=== PATIENT | male | born 1980 | race Caucasian/White ===

== ENCOUNTER 2016-09-12 10:04 | Inpatient (IN) | payer OTHER ==
--- NOTE | 2016-09-12 16:55 | HP ---
COWS - Scale Resting Pulse: 0= [place] 80 or Below Sweatin=Flushed/Facial Moisture Restless Observation: 3= Extraneous Movement Pupil Size: 2= Moderately Dilated Bone or Joint Aches: 2= Severe Diffuse Aches Runny Nose/ Eye Tearin= Runny Nose/Eyes GI Upset > 30mins: 3= Vomiting/Diarrhea Tremor Observation: 2= Slight Tremor Visible Yawning Observation: 2= >3x During Session Anxiety or Irritability: 2=Irritable/Anxious Goose Flesh Skin: 0=Smooth Skin COWS Score: 20 Admission ROS BHS - HPI Chief Complaint: i i need help to stop using drugs Allergies/Adverse Reactions: Allergies Allergy/AdvReac Type Severity Reaction Status Date / Time Penicillins Allergy Severe Rash Verified 09/12/16 16:44 History of Present Illness: this 35 years old patient with heroin,cocaine and marijuana dependence seeking detox,last treatment in 2014 i [place] had previous admission in the past needed help to stop anxiety and depression longest period of sobriety 3 years Exam Limitations: No Limitations - Ebola screening Have you traveled outside of the country in the last 21 days: No Have you been sick,other than usual withdrawal symptoms: No - Review of Systems Constitutional: Chills, Loss of Appetite, Malaise, Night Sweats, Changes in sleep, Weakness, Unintentional Wgt. Loss EENT: reports: Tearing, Nose Congestion Respiratory: reports: No Symptoms reported Cardiac: reports: No Symptoms Reported GI: reports: Diarrhea, Nausea, Vomiting, Abdominal cramping : reports: No Symptoms Reported Musculoskeletal: reports: Back Pain, Joint Pain, Muscle Pain, Joint Stiffness Integumentary: reports: Dryness Neuro: reports: Headache, Tremors Endocrine: reports: No Symptoms Reported Hematology: reports: No Symptoms Reported Psychiatric: reports: Anxious, Depressed Other Systems: Reviewed and Negative Patient History - Patient Medical History Hx Anemia: No Hx Asthma: No Hx Chronic Obstructive Pulmonary Disease (COPD): No Hx Cancer: No Hx Cardiac Disorders: No Hx Congestive Heart Failure: No Hx Hypertension: No Hx Hypercholesterolemia: No Hx Pacemaker: No HX Cerebrovascular Accident: No Hx Seizures: No Hx Dementia: No Hx Diabetes: No Hx Gastrointestinal Disorders: No Hx Liver Disease: No Hx Genitourinary Disorders: No Hx Sexually Transmitted Disorders: No Hx Renal Disease (ESRD): No Hx Thyroid Disease: No Hx Human Immunodeficiency Virus (HIV): No (09/10 last negative) Hx Hepatitis C: No Hx Depression: Yes (anxiety) Hx Suicide Attempt: No Hx Bipolar Disorder: No Hx Schizophrenia: No Other Medical History: no suicidal,no homicidal - Patient Surgical History Past Surgical History: No - PPD History Previous Implant?: Yes Documented Results: Negative w/o proof PPD to be Administered?: Yes - Smoking Cessation Smoking history: Current every day smoker Have you smoked in the past 12 months: Yes Aproximately how many cigarettes per day: 20 Cigars Per Day: 0 Hx Chewing Tobacco Use: No Initiated information on smoking cessation: Yes 'Breaking Loose' booklet given: 09/12/16 - Substance & Tx. History Hx Alcohol Use: No Hx Substance Use: Yes Substance Use Type: Cocaine, Heroin, Marijuana Hx Substance Use Treatment: Yes (2014 in [place]) - Substances Abused Heroin Route: Injection Frequency: Daily Amount used: 10 bags Age of first use: 21 Date of Last Use: 09/12/16 Marijuana/Hashish Route: Smoking Frequency: Daily Amount used: 1 bag Age of first use: 16 Date of Last Use: 09/11/16 Cocaine Route: Injection Frequency: Daily Amount used: 3 bags Age of first use: 21 Date of Last Use: 09/11/16 Family Disease History - Family Disease History Family History: Denies Admission Physical Exam [facility] - Vital Signs Vital Signs: Vital Signs - 24 hr 09/12/16 16:41 Temperature 97.0 F L Pulse Rate 72 Respiratory 20 Rate Blood Pressure 120/71 - Physical General Appearance: Yes: Moderate Distress, Tremorous, Irritable, Sweating, Anxious HEENTM: Yes: Normal ENT Inspection, Normocephalic, HANY Respiratory: Yes: Lungs Clear, Normal Breath Sounds, No Respiratory Distress Neck: Yes: Within Normal Limits, Supple, Trachea in good position Breast: Yes: Within Normal Limits Cardiology: Yes: Within Normal Limits, Regular Rhythm, Regular Rate, S1, S2 Abdominal: Yes: Normal Bowel Sounds, Non Tender, Flat, Soft, Organomegaly Genitourinary: Yes: Within Normal Limits Back: Yes: Muscle Spasm Musculoskeletal: Yes: full range of Motion, Back pain, Joint Stiffness, Muscle Pain Extremities: Yes: Normal Range of Motion, Tremors Neurological: Yes: strategic manager II-XII NML intact, Alert, Motor Strength 5/5 Integumentary: Yes: Dry, Track Jason Lymphatic: Yes: Within Normal Limits - Diagnostic (1) Opioid dependence with withdrawal Status: Acute (2) Cocaine dependence Status: Acute (3) Cannabis dependence Status: Acute (4) Anxiety and depression Status: Acute (5) Insomnia Status: Acute Cleared for Admission [facility] - Detox or Rehab [facility] Level of Care: Medically Managed Detox Regimen/Protocol: Methadone [facility] Breath Alcohol Content Breath Alcohol Content: 0 Urine Drug Screen - Results Drug Screen Negative: No Urine Drug Screen Results: THC-Marijuana, DELFINO-Cocaine, OPI-Opiates
[2016-09-12] MEDS ORDERED: LOPERAMIDE HCL 2 MG CAPSULE PO PRN (17:06)
[2016-09-12] MEDS ORDERED: diphenhydrAMINE HCL 50 MG CAPSULE PO PRN (17:06)
[2016-09-12] MEDS ORDERED: IBUPROFEN 400 MG TABLET (FP) PO PRN (17:06)
[2016-09-12] MEDS ORDERED: NICOTINE POLACRILEX 2 MG GUM BC PRN (17:06)
[2016-09-12] MEDS ORDERED: MAGNESIUM CITRATE 300 ML BOTTLE PO PRN (17:06)
[2016-09-12] MEDS ORDERED: P-EPHED 60MG/TRIPROLIDI 2.5MG TABLET PO PRN (17:06)
[2016-09-12] MEDS ORDERED: MAG HYDROX/AL HYDROX/SIMETH 30 ML UNIT-DOSE CUP PO PRN (17:06)
[2016-09-12] MEDS ORDERED: ACETAMINOPHEN 325 MG TABLET (FP) PO PRN (17:06)
[2016-09-12] MEDS ORDERED: MAGNESIUM HYDROX 2400MG/30ML ORAL SUSPENSION 30 ML CUP PO PRN (17:06)
[2016-09-12] MEDS ORDERED: hydrOXYzine PAMOATE 25 MG CAPSULE (FP) PO PRN (17:06)
[2016-09-12] MEDS ORDERED: guaiFENesin/D-METHORPHAN HB 10 ML UNIT-DOSE CUPS PO PRN (17:06)
[2016-09-12] MEDS ORDERED: MENTHOL/PHENOL 1 EACH UD MM PRN (17:06)
[2016-09-12] MEDS ORDERED: CYCLOBENZAPRINE HCL 10 MG TABLET (FP) PO PRN (17:11)
[2016-09-12] MEDS ORDERED: NICOTINE 21 MG/24 HOURS TOPICAL PATCH TD SCH (17:15)
[2016-09-12] MEDS ORDERED: METHADONE HCL 10 MG TABLET (FOR DETOX USE ONLY) PO ONE ×2 (17:45→23:00)
[2016-09-12] MEDS: diazePAM 5 MG TABLET PO PRN ×2 (17:54→22:48)
[2016-09-12] MEDS ORDERED: cloNIDine HCL 0.1 MG TABLET PO SCH (22:00)
[2016-09-12] MEDS ORDERED: THIAMINE HCL 100 MG TABLET (FP) PO SCH (22:00)
[2016-09-13] MEDS: diazePAM 5 MG TABLET PO PRN (05:38)
[2016-09-13 06:31] VITALS: BP 100/74; PULSE 76; TEMP 97.2
[2016-09-13] MEDS ORDERED: hydrOXYzine PAMOATE 50 MG CAPSULE (FP) PO PRN (07:59)
--- NOTE | 2016-09-13 08:45 | CONSULT ---
[facility] Psychiatric Consult - Data Date of interview: 09/13/16 Admission source: [facility] Identifying data: This is 35 years old male with psychiatric hospitalization history intoxicated with : Opioids, Cannabis and Copcaine Substance Abuse History: - Smoking Cessation. Smoking history: Current every day smoker. Have you smoked in the past 12 months: Yes. Aproximately how many cigarettes per day: 20. Cigars Per Day: 0. Hx Chewing Tobacco Use: No. Initiated information on smoking cessation: Yes. 'Breaking Loose' booklet given : 09/12/16. - Substance & Tx. History. Hx Alcohol Use: No. Hx Substance Use: Yes. Substance Use Type: Cocaine, Heroin, Marijuana. Hx Substance Use Treatment: Yes (2015 in [place]) Medical History: Denies significant medical issues Psychiatric History: Patient reprots history of depressiokn and anxiety, reports rtecent psychiatric admission at [place] on 2016 for safety, reports taking Vistaril 50mg po prn q4 for anxiety Physical/Sexual Abuse/Trauma History: Denies Additional Comment: Vistaril 50mg po prn q4 for anxiety Mental Status Exam - Mental Status Exam Alert and Oriented to: Person Cognitive Function: Fair Patient Appearance: Unkempt Mood: Sad Affect: Flat Patient Behavior: Sedated Speech Pattern: Delayed Voice Loudness: Mildly Soft/Quiet Thought Process: Circumstantial Thought Disorder: Being Controlled Hallucinations: Denies Suicidal Ideation: Denies Homicidal Ideation: Denies Insight/Judgement: Fair Sleep: Difficulty falling asleep Appetite: Weight loss Muscle strength/Tone: Normal Gait/Station: Shuffling Additional Comments: Vistaril 50mg po prn q4 for anxiety Psychiatric Findings - Problem List ([place] 1, 2,3) (1) Cannabis dependence Current Visit: Yes Status: Acute (2) Cocaine dependence Current Visit: Yes Status: Acute (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 Observation. Detox Care Protocol
[2016-09-13 10:00] LABS: MCH 29.9 pg (25.7-33.7); MCHC 33.2 g/dl (32.0-35.9); MEAN PLT VOLUME 8.6 fl (7.5-11.1); PLATELET COUNT 231 K/MM3 (134-434); RDW 14.3 % (11.9-15.9); WHITE BLOOD COUNT 5.2 K/mm3 (4.0-10.0)
[2016-09-13] MEDS ORDERED: PRENATAL VITAMINS W/ FOLIC ACID TABLET (FP) PO SCH (10:00)
[2016-09-13] MEDS ORDERED: METHADONE HCL 10 MG TABLET (FOR DETOX USE ONLY) PO ONE (10:00)
[2016-09-13 10:26] LABS: ALK PHOS 87 U/L (45-117); ANION GAP 5 (8-16); BILIRUBIN,TOTAL 0.3 mg/dL (0.2-1.0); CALCIUM 8.9 mg/dL (8.5-10.1); CO2 31 mmol/L (21-32); CREATININE 0.8 mg/dL (0.7-1.3); GLUCOSE,RANDOM 123 mg/dL (74-106); SGOT/AST 120 U/L (15-37); SGPT/ALT 174 U/L (12-78); TOT PROT 6.3 g/dl (6.4-8.2)
--- NOTE | 2016-09-13 11:21 | DS ---
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 PT STATES HIS FAMILY IN [place] DOES NOT KNOW HE IS HERE AND HE WANTS TO LEAVE. ALERT O X 3. NAD. Pertinent Past History: HX DEPRESSION - Physical Exam Results Vital Signs: Vital Signs Temperature 97.2 F L 09/13/16 06:29 Pulse Rate 76 09/13/16 06:29 Respiratory Rate 18 09/13/16 06:29 Blood Pressure 100/74 09/13/16 06:29 O2 Sat by Pulse Oximetry (%) Pertinent Admission Physical Exam Findings: WITHDRAWAL SX Laboratory Last Values WBC 5.2 K/mm3 (4.0-10.0) 09/13/16 06:30 RBC 4.69 M/mm3 (4.00-5.60) 09/13/16 06:30 Hgb 14.0 GM/dL (11.7-16.9) 09/13/16 06:30 Hct 42.2 % (35.4-49) 09/13/16 06:30 MCV 90.0 fl (80-96) 09/13/16 06:30 MCH 29.9 pg (25.7-33.7) 09/13/16 06:30 MCHC 33.2 g/dl (32.0-35.9) 09/13/16 06:30 RDW 14.3 % (11.9-15.9) 09/13/16 06:30 Plt Count 231 K/MM3 (134-434) 09/13/16 06:30 MPV 8.6 fl (7.5-11.1) 09/13/16 06:30 Sodium 137 mmol/L (136-145) 09/13/16 06:30 Potassium 4.4 mmol/L (3.5-5.1) 09/13/16 06:30 Chloride 101 mmol/L (98-107) 09/13/16 06:30 Carbon Dioxide 31 mmol/L (21-32) 09/13/16 06:30 Anion Gap 5 (8-16) L 09/13/16 06:30 BUN 11 mg/dL (7-18) 09/13/16 06:30 Creatinine 0.8 mg/dL (0.7-1.3) 09/13/16 06:30 Creat Clearance w eGFR > 60 (>60) 09/13/16 06:30 Random Glucose 123 mg/dL (74-106) H 09/13/16 06:30 Calcium 8.9 mg/dL (8.5-10.1) 09/13/16 06:30 Total Bilirubin 0.3 mg/dL (0.2-1.0) 09/13/16 06:30 AST 120 U/L (15-37) H 09/13/16 06:30 ALT 174 U/L (12-78) H 09/13/16 06:30 Alkaline Phosphatase 87 U/L (45-117) 09/13/16 06:30 Total Protein 6.3 g/dl (6.4-8.2) L 09/13/16 06:30 Albumin 3.0 g/dl (3.4-5.0) L 09/13/16 06:30 RPR Titer Nonreactive (NONREACTIVE) 09/13/16 06:30 UA RESULT PENDING - Treatment Hospital Course: Discharged Condition Good - Medication Discharge Medications: Ambulatory Orders NK [No Known Home Medication] 09/12/16 - Diagnosis (1) Anxiety and depression Status: Acute (2) Cannabis dependence Status: Acute (3) Cocaine dependence Status: Acute (4) Opioid dependence with withdrawal Status: Acute - AMA Did Patient Leave Against Medical Advice: Yes (AMA)
[2016-09-13 14:19] LABS: URINE APPEARANCE CLEAR; URINE BILIRUBIN NEGATIVE (NEGATIVE); URINE BLOOD NEGATIVE (NEGATIVE); URINE COLOR LTYELLOW; URINE GLUCOSE (UA) NEGATIVE (NEGATIVE); URINE KETONE NEGATIVE (NEGATIVE); URINE LEUK ESTERASE NEGATIVE (NEGATIVE); URINE NITRITE NEGATIVE (NEGATIVE); URINE PROTEIN NEGATIVE (NEGATIVE); URINE UROBILINOGEN NEGATIVE mg/dL (0.2-1.0)
--- NOTE | 2016-09-13 16:37 | EKG ---
Test Reason : Blood Pressure : / mmHG Vent. Rate : 058 BPM Atrial Rate : 058 BPM P-R Int : 128 ms QRS Dur : 112 ms QT Int : 432 ms P-R-T Axes : 060 075 058 degrees QTc Int : 424 ms SINUS BRADYCARDIA OTHERWISE NORMAL ECG NO PREVIOUS ECGS AVAILABLE Confirmed by SAMMY BASURTO MD ([id number]) on 09/13/2016 4:37:15 PM Referred By: Confirmed By:SAMMY BASURTO MD
[2016-09-14] MEDS ORDERED: METHADONE HCL 5 MG TABLET (FOR DETOX USE ONLY) PO ONE (10:00)
[2016-09-15] MEDS ORDERED: METHADONE HCL 5 MG TABLET (FOR DETOX USE ONLY) PO ONE (10:00)
[2016-09-16] MEDS ORDERED: METHADONE HCL 10 MG TABLET (FOR DETOX USE ONLY) PO ONE (10:00)
[2016-09-17] MEDS ORDERED: METHADONE HCL 5 MG TABLET (FOR DETOX USE ONLY) PO ONE (06:00)
== END 2016-09-13 09:09 | disposition left against medical advice (07) | DRG 770 ==
LOC: YASAS 10:04 → Y3N 16:58
PROVIDERS: ADMIT Internal Medicine Addiction Medicine; ATTEND Internal Medicine Addiction Medicine
PROC: HZ2ZZZZ Detoxification Services for Substance Abuse Treatment (ICD-10-PCS; principal; 2016-09-13)
DX: F11.23 Opioid dependence with withdrawal (principal); F14.20 Cocaine dependence, uncomplicated; F12.20 Cannabis dependence, uncomplicated; F19.24 Other psychoactive substance dependence with psychoactive substance-induced mood disorder; F41.8 Other specified anxiety disorders; G47.09 Other insomnia
CPT/HCPCS: 36415; 80053; 81003; 85027; 86593; 93005; 93010

== ENCOUNTER 2017-07-05 19:03 | Inpatient (IN) | payer OTHER ==
[2017-07-05 21:02] VITALS: BMI 19.3
--- NOTE | 2017-07-06 02:04 | HP ---
COWS - Scale Resting Pulse: 0= [place] 80 or Below Sweatin=Flushed/Facial Moisture Restless Observation: 1= Difficult to Sit Still Pupil Size: 1= Pupils >than Normal Bone or Joint Aches: 2= Severe Diffuse Aches Runny Nose/ Eye Tearin= Runny Nose/Eyes GI Upset > 30mins: 3= Vomiting/Diarrhea (vomiting x 3,no diarrhea) Tremor Observation: 2= Slight Tremor Visible Yawning Observation: 0= None Anxiety or Irritability: 2=Irritable/Anxious Goose Flesh Skin: 0=Smooth Skin COWS Score: 15 CIWA Score - CIWA Score Nausea/Vomitin Muscle Tremors: 3 Anxiety: 3 Agitation: 1-Slight > Activity Paroxysmal Sweats: 1-Minimal Palms Moist Orientation: 0-Oriented Tacttile Disturbances: 0-None Auditory Disturbances: 0-None Visual Disturbances: 0-None Headache: 3-Moderate CIWA-Ar Total Score: 14 Admission ROS S - HPI Chief Complaint: Heroin, benzidiazepine and alcohol withdrawal symptoms Allergies/Adverse Reactions: Allergies Allergy/AdvReac Type Severity Reaction Status Date / Time Penicillins Allergy Severe Rash Verified 07/06/17 01:50 History of Present Illness: 36 years old male with a long history of heroin, benzidiazepine and alcohol withdrawal symptoms is seeking admission to detox. Patient has been to previous detox and reports 2 years of sobriety. He has medical history of depression and anxiety. Denies suicide attempt and suicidal ideation at this time. Patient is on methadone 50mg tablet at [facility]. LDM was 07/05/2017. Dose is yet to be confirmed by the nurse. Exam Limitations: No Limitations - Ebola screening Have you traveled outside of the country in the last 21 days: No ([place]) Have you had contact with anyone from an Ebola affected area: No Have you been sick,other than usual withdrawal symptoms: No Do you have a fever: No - Review of Systems Constitutional: Chills, Loss of Appetite, Malaise, Night Sweats, Changes in sleep EENT: reports: No Symptoms Reported Respiratory: reports: No Symptoms reported Cardiac: reports: No Symptoms Reported GI: reports: No Symptoms Reported : reports: No Symptoms Reported Musculoskeletal: reports: Back Pain, Muscle Pain Integumentary: reports: Flushing Neuro: reports: Headache, Tremors Endocrine: reports: No Symptoms Reported Hematology: reports: No Symptoms Reported Psychiatric: reports: Orientated x3, Agitated, Anxious, Depressed Other Systems: Reviewed and Negative Patient History - Patient Medical History Hx Anemia: No Hx Asthma: No Hx Chronic Obstructive Pulmonary Disease (COPD): No Hx Cancer: No Hx Cardiac Disorders: No Hx Congestive Heart Failure: No Hx Hypertension: No Hx Hypercholesterolemia: No Hx Pacemaker: No HX Cerebrovascular Accident: No Hx Seizures: No Hx Dementia: No Hx Diabetes: No Hx Gastrointestinal Disorders: No Hx Liver Disease: No Hx Genitourinary Disorders: No Hx Sexually Transmitted Disorders: No Hx Renal Disease (ESRD): No Hx Thyroid Disease: No Hx Human Immunodeficiency Virus (HIV): No (09/10 last negative) Hx Hepatitis C: No Hx Depression: Yes (Not on medication) Hx Suicide Attempt: No (Denies suicide attempt and suicidakl ideation at this time) Hx Bipolar Disorder: No Hx Schizophrenia: No Other Medical History: Anxiety - Not on medication - Patient Surgical History Past Surgical History: No Hx Neurologic Surgery: No Hx Cataract Extraction: No Hx Cardiac Surgery: No Hx Lung Surgery: No Hx Abdominal Surgery: No Hx Appendectomy: No Hx Cholecystectomy: No Hx Genitourinary Surgery: No Hx Section: No Hx Orthopedic Surgery: No Anesthesia Reaction: No - PPD History Previous Implant?: Yes Documented Results: Negative w/o proof Implanted On Prior [facility] Admission?: No Date: 09/14/16 PPD to be Administered?: Yes - Reproductive History Patient is a Female of Child Bearing Age (11 -55 yrs old): No (male) - Smoking Cessation Smoking history: Current every day smoker Have you smoked in the past 12 months: Yes Aproximately how many cigarettes per day: 20 Cigars Per Day: 0 Hx Chewing Tobacco Use: No Initiated information on smoking cessation: Yes 'Breaking Loose' booklet given: 07/06/17 - Substance & Tx. History Hx Alcohol Use: Yes Hx Substance Use: Yes Substance Use Type: Alcohol, Cocaine, Heroin, Marijuana Hx Substance Use Treatment: Yes ([facility]) - Substances Abused Cocaine Route: Injection Frequency: Daily Amount used: $50- 5BAGS Age of first use: 21 Date of Last Use: 07/06/17 Heroin Route: Inhalation Frequency: Daily Amount used: 5BAGS Age of first use: 21 Date of Last Use: 07/06/17 Alcohol Route: Oral Frequency: Daily Amount used: VODKA- 3PTS, BEERS- 3BTLS Age of first use: 12 Date of Last Use: 07/06/17 XANAX Route: Oral Frequency: Daily Amount used: 6MG Age of first use: 13 Date of Last Use: 07/06/17 K2 Route: Smoking Frequency: Daily Amount used: $20 Age of first use: 33 Date of Last Use: 07/06/17 Family Disease History - Family Disease History Family History: Denies Admission Physical Exam [facility] - Vital Signs Vital Signs: Vital Signs - 24 hr 07/05/17 21:00 Temperature 98.6 F Pulse Rate 75 Respiratory 17 Rate Blood Pressure 111/65 - Physical General Appearance: Yes: Moderate Distress, Tremorous, Irritable, Sweating, Anxious HEENTM: Yes: Normal ENT Inspection, Normal Voice, HANY Respiratory: Yes: Lungs Clear, Normal Breath Sounds, No Respiratory Distress Neck: Yes: Supple Breast: Yes: Breast Exam Deferred Cardiology: Yes: Regular Rhythm, Regular Rate Abdominal: Yes: Normal Bowel Sounds, Soft Genitourinary: Yes: Within Normal Limits Back: Yes: Normal Inspection Musculoskeletal: Yes: Back pain, Muscle Pain, Muscle weakness Extremities: Yes: Tremors Neurological: Yes: Alert, Normal Mood/Affect Integumentary: Yes: Dry Lymphatic: Yes: Within Normal Limits - Diagnostic (1) Sedative, hypnotic or anxiolytic dependence with withdrawal, uncomplicated Current Visit: Yes Status: Chronic (2) Anxiety and depression Current Visit: Yes Status: Chronic (3) Cannabis dependence Current Visit: Yes Status: Chronic (4) Cocaine dependence Current Visit: Yes Status: Chronic (5) Opioid dependence with withdrawal Current Visit: Yes Status: Chronic Cleared for Admission [facility] - Detox or Rehab [facility] Level of Care: Medically Managed Detox Regimen/Protocol: Librium [facility] Breath Alcohol Content Breath Alcohol Content: 0 Urine Drug Screen - Results Drug Screen Negative: No Urine Drug Screen Results: DELFINO-Cocaine, OPI-Opiates, BZO-Benzodiazepines, MTD- Methadone
[2017-07-06] MEDS ORDERED: P-EPHED 60MG/TRIPROLIDI 2.5MG TABLET PO PRN (02:20)
[2017-07-06] MEDS ORDERED: IBUPROFEN 400 MG TABLET (FP) PO PRN (02:20)
[2017-07-06] MEDS ORDERED: guaiFENesin/D-METHORPHAN HB 10 ML UNIT-DOSE CUPS PO PRN (02:20)
[2017-07-06] MEDS ORDERED: MAG HYDROX/AL HYDROX/SIMETH 30 ML UNIT-DOSE CUP PO PRN (02:20)
[2017-07-06] MEDS ORDERED: MENTHOL/PHENOL 1 EACH UD MM PRN (02:20)
[2017-07-06] MEDS ORDERED: MAGNESIUM CITRATE 300 ML BOTTLE PO PRN (02:20)
[2017-07-06] MEDS ORDERED: LOPERAMIDE HCL 2 MG CAPSULE PO PRN (02:20)
[2017-07-06] MEDS ORDERED: diazePAM 5 MG TABLET PO ONE (02:20)
[2017-07-06] MEDS: diazePAM 5 MG TABLET PO SCH ×3 (05:14→22:19)
--- NOTE | 2017-07-06 09:22 | EKG ---
Test Reason : Blood Pressure : / mmHG Vent. Rate : 063 BPM Atrial Rate : 063 BPM P-R Int : 136 ms QRS Dur : 116 ms QT Int : 432 ms P-R-T Axes : 053 068 051 degrees QTc Int : 442 ms NORMAL SINUS RHYTHM NORMAL ECG WHEN COMPARED WITH ECG OF 12-SEP-2016 16:57, NO SIGNIFICANT CHANGE WAS FOUND Confirmed by DARYL FONSECA MD ([id number]) on 07/06/2017 9:21:43 AM Referred By: Confirmed By:ADRYL FONSECA MD
[2017-07-06 10:08] LABS: HEMATOCRIT 42.1 % (35.4-49); HEMOGLOBIN 14.2 GM/dL (11.7-16.9); MCH 30.1 pg (25.7-33.7); MCHC 33.7 g/dl (32.0-35.9); MEAN CELL VOLUME 89.3 fl (80-96); MEAN PLT VOLUME 8.6 fl (7.5-11.1); PLATELET COUNT 392 K/MM3 (134-434); RBC 4.71 M/mm3 (4.00-5.60); RDW 15.4 % (11.9-15.9); WHITE BLOOD COUNT 8.8 K/mm3 (4.0-10.0)
[2017-07-06] MEDS: NICOTINE 14 MG/24 HOURS TOPICAL PATCH TD SCH (10:26)
[2017-07-06] MEDS: diazePAM 5 MG TABLET PO PRN ×2 (10:26→17:33)
[2017-07-06] MEDS: PRENATAL VITAMINS W/ FOLIC ACID TABLET (FP) PO SCH (10:26)
[2017-07-06] MEDS: ACETAMINOPHEN 325 MG TABLET (FP) PO PRN (10:27)
[2017-07-06] MEDS: NICOTINE POLACRILEX 2 MG GUM BC PRN ×2 (10:27→19:05)
[2017-07-06 10:37] LABS: CHLORIDE 98 mmol/L (98-107); POTASSIUM 3.5 mmol/L (3.5-5.1); SODIUM 139 mmol/L (136-145)
[2017-07-06 10:50] LABS: ALBUMIN 3.9 g/dl (3.4-5.0); ALK PHOS 113 U/L (45-117); ANION GAP 9 (8-16); BILIRUBIN,TOTAL 0.9 mg/dL (0.2-1.0); BLOOD UREA NITROGEN 12 mg/dL (7-18); CALCIUM 8.7 mg/dL (8.5-10.1); CO2 32 mmol/L (21-32); CREATININE 0.8 mg/dL (0.7-1.3); GLUCOSE,RANDOM 98 mg/dL (74-106); SGOT/AST 22 U/L (15-37); SGPT/ALT 18 U/L (12-78); TOT PROT 8.3 g/dl (6.4-8.2)
[2017-07-06] MEDS: METHADONE HCL 10 MG TABLET PO SCH (13:12)
--- NOTE | 2017-07-06 15:37 | PN ---
S CIWA - CIWA Score Nausea/Vomitin-No Nausea/No Vomiting Muscle Tremors: 3 Anxiety: 5 Agitation: 5 Paroxysmal Sweats: No Perspiration Orientation: 0-Oriented Tacttile Disturbances: 3-Moderate Itch/Numb/Burn Auditory Disturbances: 0-None Visual Disturbances: 2-Mild Sensitivity Headache: 0-None Present CIWA-Ar Total Score: 18 BHS COWS - Scale Resting Pulse: 0= [place] 80 or Below Sweatin= Chills/Flushing Restless Observation: 3= Extraneous Movement Pupil Size: 0= Normal to Room Light Bone or Joint Aches: 2= Severe Diffuse Aches Runny Nose/ Eye Tearin= None GI Upset > 30mins: 0= None Tremor Observation of Outstretched Hands: 0= None Yawning Observation: 2= >3x During Session Anxiety or Irritability: 2=Irritable/Anxious Goose Flesh Skin: 3=Piloerection COWS Score: 13 BHS Progress Note (SOAP) Subjective: Fatigue, Anxious, Body Aches, Tremors. Objective: PATIENT A & O X 3, OBSERVED AMBULATING ON UNIT. NO ACUTE DISTRESS. 07/06/17 15:36 Vital Signs Temperature 97.1 F L 07/06/17 14:56 Pulse Rate 72 07/06/17 14:56 Respiratory Rate 18 07/06/17 14:56 Blood Pressure 109/65 07/06/17 14:56 O2 Sat by Pulse Oximetry (%) Laboratory Tests 07/06/17 07/06/17 07/06/17 08:00 08:00 08:00 WBC 8.8 D RBC 4.71 Hgb 14.2 Hct 42.1 MCV 89.3 MCH 30.1 MCHC 33.7 RDW 15.4 Plt Count 392 D MPV 8.6 Sodium 139 Potassium 3.5 D Chloride 98 Carbon Dioxide 32 Anion Gap 9 BUN 12 Creatinine 0.8 Creat Clearance w eGFR > 60 Random Glucose 98 D Calcium 8.7 Total Bilirubin 0.9 D AST 22 D ALT 18 D Alkaline Phosphatase 113 D Total Protein 8.3 H D Albumin 3.9 D RPR Titer Nonreactive LABS NOTED. UA RESULTS PENDING. Assessment: 07/06/17 15:37 WITHDRAWAL SYMPTOMS. Plan: CONTINUE DETOX. INCREASE DAILY PO FLUID INTAKE.
[2017-07-06] MEDS: MAGNESIUM HYDROX 2400MG/30ML ORAL SUSPENSION 30 ML CUP PO PRN (17:36)
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
[2017-07-06] MEDS ORDERED: MELATONIN 5 MG TABLETS PO PRN (22:00)
[2017-07-06] MEDS: THIAMINE HCL 100 MG TABLET (FP) PO SCH (22:18)
[2017-07-06] MEDS: MIRTAZAPINE 15 MG TABLET (FP) PO SCH (22:19)
[2017-07-06] MEDS ORDERED: ONDANSETRON *ODT* 4 MG TABLET SL ONE (23:48)
--- NOTE | 2017-07-07 01:49 | PN ---
BHS Progress Note (SOAP) Subjective: Patient complained of nausea. Vomited x 1. Objective: 07/07/17 01:48 Vital Signs Temperature 97.1 F L 07/06/17 21:45 Pulse Rate 73 07/06/17 21:45 Respiratory Rate 16 07/07/17 00:30 Blood Pressure 104/62 07/06/17 21:45 O2 Sat by Pulse Oximetry (%) Laboratory Last Values WBC 8.8 K/mm3 (4.0-10.0) D 07/06/17 08:00 RBC 4.71 M/mm3 (4.00-5.60) 07/06/17 08:00 Hgb 14.2 GM/dL (11.7-16.9) 07/06/17 08:00 Hct 42.1 % (35.4-49) 07/06/17 08:00 MCV 89.3 fl (80-96) 07/06/17 08:00 MCH 30.1 pg (25.7-33.7) 07/06/17 08:00 MCHC 33.7 g/dl (32.0-35.9) 07/06/17 08:00 RDW 15.4 % (11.9-15.9) 07/06/17 08:00 Plt Count 392 K/MM3 (134-434) D 07/06/17 08:00 MPV 8.6 fl (7.5-11.1) 07/06/17 08:00 Sodium 139 mmol/L (136-145) 07/06/17 08:00 Potassium 3.5 mmol/L (3.5-5.1) D 07/06/17 08:00 Chloride 98 mmol/L (98-107) 07/06/17 08:00 Carbon Dioxide 32 mmol/L (21-32) 07/06/17 08:00 Anion Gap 9 (8-16) 07/06/17 08:00 BUN 12 mg/dL (7-18) 07/06/17 08:00 Creatinine 0.8 mg/dL (0.7-1.3) 07/06/17 08:00 Creat Clearance w eGFR > 60 (>60) 07/06/17 08:00 Random Glucose 98 mg/dL (74-106) D 07/06/17 08:00 Calcium 8.7 mg/dL (8.5-10.1) 07/06/17 08:00 Total Bilirubin 0.9 mg/dL (0.2-1.0) D 07/06/17 08:00 AST 22 U/L (15-37) D 07/06/17 08:00 ALT 18 U/L (12-78) D 07/06/17 08:00 Alkaline Phosphatase 113 U/L (45-117) D 07/06/17 08:00 Total Protein 8.3 g/dl (6.4-8.2) H D 07/06/17 08:00 Albumin 3.9 g/dl (3.4-5.0) D 07/06/17 08:00 RPR Titer Nonreactive (NONREACTIVE) 07/06/17 08:00 Assessment: 07/07/17 01:48 Withdrawal symptoms Plan: Ondansetron 4mg sublingual
[2017-07-07] MEDS: METHADONE HCL 10 MG TABLET PO SCH (05:58)
[2017-07-07] MEDS: diazePAM 5 MG TABLET PO SCH ×3 (05:58→22:26)
--- NOTE | 2017-07-07 07:43 | PN ---
[facility] Progress Note Note: Patient fell and hit his head. Fall protocol #1 initiated. Patient is to transferred to ER for further evaluation. Endorsed to Dr. Staples.
[2017-07-07 10:12] LABS: URINE APPEARANCE CLEAR; URINE BILIRUBIN NEGATIVE (<2.0 mg/dL); URINE COLOR LTYELLOW; URINE GLUCOSE (UA) NEGATIVE (NEGATIVE); URINE KETONE NEGATIVE (NEGATIVE); URINE LEUK ESTERASE NEGATIVE (NEGATIVE); URINE NITRITE NEGATIVE (NEGATIVE); URINE PROTEIN NEGATIVE (NEGATIVE); URINE UROBILINOGEN NEGATIVE mg/dL (0.2-1.0)
[2017-07-07] MEDS: NICOTINE 14 MG/24 HOURS TOPICAL PATCH TD SCH (10:16)
[2017-07-07] MEDS: PRENATAL VITAMINS W/ FOLIC ACID TABLET (FP) PO SCH (10:16)
[2017-07-07] MEDS: diazePAM 5 MG TABLET PO PRN ×2 (10:16→18:49)
[2017-07-07] MEDS: NICOTINE POLACRILEX 2 MG GUM BC PRN ×2 (10:17→15:14)
--- NOTE | 2017-07-07 12:52 | PN ---
S CIWA - CIWA Score Nausea/Vomitin (N/V & CONSTIPATION) Muscle Tremors: 3 Anxiety: 4-Mod. Anxious/Guarded Agitation: 3 Paroxysmal Sweats: 1-Minimal Palms Moist Orientation: 0-Oriented Tacttile Disturbances: 0-None Auditory Disturbances: 0-None Visual Disturbances: 0-None Headache: 0-None Present CIWA-Ar Total Score: 14 BHS COWS - Scale Resting Pulse: 0= [place] 80 or Below Sweatin= Chills/Flushing Restless Observation: 3= Extraneous Movement Pupil Size: 2= Moderately Dilated Bone or Joint Aches: 4=Acute Joint/Muscle Pain Runny Nose/ Eye Tearin= Nasal Congestion GI Upset > 30mins: 1= Stomach Cramp Tremor Observation of Outstretched Hands: 1= Tremor [place], Not Seen Yawning Observation: 0= None Anxiety or Irritability: 2=Irritable/Anxious Goose Flesh Skin: 0=Smooth Skin COWS Score: 15 S Progress Note (SOAP) Subjective: ANXIETY, SWEATS,NAUSEA/VOMITING LAST NIGHT DUE TO DYSPEPSIA ,CONSTIPATION-MOM NOT EFFECTIVE. Objective: 07/07/17 12:54 Vital Signs 07/07/17 07/07/17 07/07/17 06:13 07:45 09:30 Temperature 96.1 F L 96.9 F L 98.7 F Pulse Rate 71 73 71 Respiratory 18 18 18 Rate Blood Pressure 99/60 106/66 113/71 07/07/17 10:29 Temperature 96.8 F L Pulse Rate 69 Respiratory 18 Rate Blood Pressure 102/69 Laboratory Tests 07/06/17 07/06/17 07/06/17 08:00 08:00 08:00 WBC 8.8 D RBC 4.71 Hgb 14.2 Hct 42.1 MCV 89.3 MCH 30.1 MCHC 33.7 RDW 15.4 Plt Count 392 D MPV 8.6 Sodium 139 Potassium 3.5 D Chloride 98 Carbon Dioxide 32 Anion Gap 9 BUN 12 Creatinine 0.8 Creat Clearance w eGFR > 60 Random Glucose 98 D Calcium 8.7 Total Bilirubin 0.9 D AST 22 D ALT 18 D Alkaline Phosphatase 113 D Total Protein 8.3 H D Albumin 3.9 D Urine Color Urine Appearance Urine pH Ur Specific [place] Urine Protein Urine Glucose (UA) Urine Ketones Urine Blood Urine Nitrite Urine Bilirubin Urine Urobilinogen Ur Leukocyte Esterase RPR Titer Nonreactive 07/07/17 09:14 WBC RBC Hgb Hct MCV MCH MCHC RDW Plt Count MPV Sodium Potassium Chloride Carbon Dioxide Anion Gap BUN Creatinine Creat Clearance w eGFR Random Glucose Calcium Total Bilirubin AST ALT Alkaline Phosphatase Total Protein Albumin Urine Color Ltyellow Urine Appearance Clear Urine pH 6.0 Ur Specific [place] 1.010 Urine Protein Negative Urine Glucose (UA) Negative Urine Ketones Negative Urine Blood Negative Urine Nitrite Negative Urine Bilirubin Negative Urine Urobilinogen Negative Ur Leukocyte Esterase Negative RPR Titer Assessment: 07/07/17 12:54 WITHDRAWAL SX Plan: CONTINUE DETOX [place] PRN CITRATE OF MG IF MOM NOT EFFECTIVE.
[2017-07-07] MEDS: ACETAMINOPHEN 325 MG TABLET (FP) PO PRN (15:14)
[2017-07-07] MEDS: MAGNESIUM HYDROX 2400MG/30ML ORAL SUSPENSION 30 ML CUP PO PRN (18:49)
[2017-07-07] MEDS: MIRTAZAPINE 15 MG TABLET (FP) PO SCH (22:27)
[2017-07-07] MEDS: THIAMINE HCL 100 MG TABLET (FP) PO SCH (22:27)
[2017-07-08] MEDS: ACETAMINOPHEN 325 MG TABLET (FP) PO PRN (01:37)
[2017-07-08] MEDS: diazePAM 5 MG TABLET PO PRN ×4 (01:39→17:37)
[2017-07-08] MEDS ORDERED: METHADONE HCL 10 MG TABLET ONE (04:50)
[2017-07-08] MEDS ORDERED: METHADONE HCL 40 MG DISPERSABLE TABLET ONE (04:50)
[2017-07-08] MEDS: METHADONE 40 MG, METHADONE 10 MG PO SCH (05:16)
[2017-07-08] MEDS: NICOTINE POLACRILEX 2 MG GUM BC PRN ×3 (09:33→19:59)
[2017-07-08] MEDS: PRENATAL VITAMINS W/ FOLIC ACID TABLET (FP) PO SCH (10:03)
[2017-07-08] MEDS: diazePAM 5 MG TABLET PO SCH ×2 (10:03→22:12)
[2017-07-08] MEDS: NICOTINE 14 MG/24 HOURS TOPICAL PATCH TD SCH (10:03)
--- NOTE | 2017-07-08 12:11 | PN ---
BHS Progress Note (SOAP) Subjective: ANXIETY,SWEATS,INTERMITTENT SLEEP. Objective: 07/08/17 12:11 Vital Signs 07/08/17 07/08/17 07/08/17 06:06 06:30 07:30 Temperature 97.5 F L 97.7 F Pulse Rate 75 68 Respiratory 18 18 18 Rate Blood Pressure 113/78 103/65 07/08/17 09:02 Temperature 97.0 F L Pulse Rate 77 Respiratory 18 Rate Blood Pressure 108/70 Laboratory Tests 07/06/17 07/06/17 07/06/17 08:00 08:00 08:00 WBC 8.8 D RBC 4.71 Hgb 14.2 Hct 42.1 MCV 89.3 MCH 30.1 MCHC 33.7 RDW 15.4 Plt Count 392 D MPV 8.6 Sodium 139 Potassium 3.5 D Chloride 98 Carbon Dioxide 32 Anion Gap 9 BUN 12 Creatinine 0.8 Creat Clearance w eGFR > 60 Random Glucose 98 D Calcium 8.7 Total Bilirubin 0.9 D AST 22 D ALT 18 D Alkaline Phosphatase 113 D Total Protein 8.3 H D Albumin 3.9 D Urine Color Urine Appearance Urine pH Ur Specific [place] Urine Protein Urine Glucose (UA) Urine Ketones Urine Blood Urine Nitrite Urine Bilirubin Urine Urobilinogen Ur Leukocyte Esterase RPR Titer Nonreactive 07/07/17 09:14 WBC RBC Hgb Hct MCV MCH MCHC RDW Plt Count MPV Sodium Potassium Chloride Carbon Dioxide Anion Gap BUN Creatinine Creat Clearance w eGFR Random Glucose Calcium Total Bilirubin AST ALT Alkaline Phosphatase Total Protein Albumin Urine Color Ltyellow Urine Appearance Clear Urine pH 6.0 Ur Specific [place] 1.010 Urine Protein Negative Urine Glucose (UA) Negative Urine Ketones Negative Urine Blood Negative Urine Nitrite Negative Urine Bilirubin Negative Urine Urobilinogen Negative Ur Leukocyte Esterase Negative RPR Titer Assessment: 07/08/17 12:11 WITHDRAWAL SX Plan: CONTINUE DETOX
[2017-07-08] MEDS: MIRTAZAPINE 15 MG TABLET (FP) PO SCH (22:12)
[2017-07-08] MEDS: THIAMINE HCL 100 MG TABLET (FP) PO SCH (22:12)
[2017-07-08] MEDS: MAGNESIUM HYDROX 2400MG/30ML ORAL SUSPENSION 30 ML CUP PO PRN (22:14)
[2017-07-09] MEDS ORDERED: METHADONE HCL 10 MG TABLET ONE (03:46)
[2017-07-09] MEDS ORDERED: METHADONE HCL 40 MG DISPERSABLE TABLET ONE (03:46)
[2017-07-09] MEDS: METHADONE 40 MG, METHADONE 10 MG PO SCH (05:54)
[2017-07-09] MEDS: PRENATAL VITAMINS W/ FOLIC ACID TABLET (FP) PO SCH (10:00)
[2017-07-09] MEDS: diazePAM 5 MG TABLET PO SCH (10:00)
[2017-07-09] MEDS: NICOTINE 14 MG/24 HOURS TOPICAL PATCH TD SCH (10:01)
[2017-07-09] MEDS: NICOTINE POLACRILEX 2 MG GUM BC PRN (10:01)
--- NOTE | 2017-07-09 10:22 | PN ---
BHS Progress Note (SOAP) Subjective: ANXIETY,SWEATS,IRRITABILITY, RESTLESSNESS,INTERMITTENT SLEEP. Objective: 07/09/17 10:21 Vital Signs 07/09/17 07/09/17 06:11 09:03 Temperature 96.8 F L 97.5 F L Pulse Rate 98 H 91 H Respiratory 16 16 Rate Blood Pressure 115/77 121/75 Laboratory Tests 07/06/17 07/06/17 07/06/17 08:00 08:00 08:00 WBC 8.8 D RBC 4.71 Hgb 14.2 Hct 42.1 MCV 89.3 MCH 30.1 MCHC 33.7 RDW 15.4 Plt Count 392 D MPV 8.6 Sodium 139 Potassium 3.5 D Chloride 98 Carbon Dioxide 32 Anion Gap 9 BUN 12 Creatinine 0.8 Creat Clearance w eGFR > 60 Random Glucose 98 D Calcium 8.7 Total Bilirubin 0.9 D AST 22 D ALT 18 D Alkaline Phosphatase 113 D Total Protein 8.3 H D Albumin 3.9 D Urine Color Urine Appearance Urine pH Ur Specific [place] Urine Protein Urine Glucose (UA) Urine Ketones Urine Blood Urine Nitrite Urine Bilirubin Urine Urobilinogen Ur Leukocyte Esterase RPR Titer Nonreactive 07/07/17 09:14 WBC RBC Hgb Hct MCV MCH MCHC RDW Plt Count MPV Sodium Potassium Chloride Carbon Dioxide Anion Gap BUN Creatinine Creat Clearance w eGFR Random Glucose Calcium Total Bilirubin AST ALT Alkaline Phosphatase Total Protein Albumin Urine Color Ltyellow Urine Appearance Clear Urine pH 6.0 Ur Specific [place] 1.010 Urine Protein Negative Urine Glucose (UA) Negative Urine Ketones Negative Urine Blood Negative Urine Nitrite Negative Urine Bilirubin Negative Urine Urobilinogen Negative Ur Leukocyte Esterase Negative RPR Titer Assessment: 07/09/17 10:21 WITHDRAWAL SX Plan: CONTINUE DETOX
[2017-07-09] MEDS: ACETAMINOPHEN 325 MG TABLET (FP) PO PRN (11:02)
--- NOTE | 2017-07-09 11:20 | PN ---
[facility] Progress Note Note: NURSE NEHA CALLED FOR PROVIDER TO TO SEE THIS PATIENT STATING " PT WAS SITTING ON THE FLOOR". SAW PT SITTING ON HIS BED BUT APPEARED VERY TIRED SLEEPY. 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 PT EXPRESSED DESIRE TO USE THE BATHROOM DURING MY PRESENCE AT PT'S BEDSIDE AND STATES HE MIGHT BE "FEELING THAT WAY BECAUSE I DRANK SOMETHING TO MAKE ME GO ". PT HAD CITROMA AT 7:55 THIS MORNING. PT HAS NO PMHx OF ANY DISEASE. NOT ON MEDS AT HOME. BP 104/60 P 77 RR18 T99.2 PULSE OX 97% LUNGS:CLEAR TO AUSCULTATE, NO WHEEZE OR MURMUR PLAN:NURSING STAFF TO MONITOR PT SAFETY PER PROTOCOL INCREASE PO FLUIDS AMMONIA LEVEL R/O HYPERAMMONEMIA
[2017-07-09 13:44] VITALS: BP 128/71; PULSE 89; TEMP 96.9
--- NOTE | 2017-07-09 13:59 | DS ---
[facility] Detox Discharge Summary Admission Date: 07/05/17 Discharge Date: 07/09/17 - History Present History: Cannabis Dependence, Cocaine Dependence, Opioid Dependence, Sedative Dependence Additional Comments: PT DECLINED TO CONTINUE WITH DETOX STATES "IT'S TOO GOOD OUTSIDE. FOR NOW I'M LEAVING. I'LL FOLLOW UP WITH REHAB LATER". PT IS ALERT O X 3. IN NAD. AMBULATING WITH STEADY GAIT. PT ENCOURAGED BY COUNSELOR PIPPA AND THIS BREAK OUT WORKER TO STAY IN ORDER TO GO TO REHAB IN THE MORNING BUT HE DECLINED. Pertinent Past History: PLEASE SEE DX BELOW - Physical Exam Results Vital Signs: Vital Signs Temperature 96.9 F L 07/09/17 13:43 Pulse Rate 89 07/09/17 13:43 Respiratory Rate 16 07/09/17 13:43 Blood Pressure 128/71 07/09/17 13:43 O2 Sat by Pulse Oximetry (%) Pertinent Admission Physical Exam Findings: WITHDRAWAL SX Laboratory Tests 07/06/17 07/06/17 07/06/17 08:00 08:00 08:00 WBC 8.8 D RBC 4.71 Hgb 14.2 Hct 42.1 MCV 89.3 MCH 30.1 MCHC 33.7 RDW 15.4 Plt Count 392 D MPV 8.6 Sodium 139 Potassium 3.5 D Chloride 98 Carbon Dioxide 32 Anion Gap 9 BUN 12 Creatinine 0.8 Creat Clearance w eGFR > 60 Random Glucose 98 D Calcium 8.7 Total Bilirubin 0.9 D AST 22 D ALT 18 D Alkaline Phosphatase 113 D Ammonia Total Protein 8.3 H D Albumin 3.9 D Urine Color Urine Appearance Urine pH Ur Specific [place] Urine Protein Urine Glucose (UA) Urine Ketones Urine Blood Urine Nitrite Urine Bilirubin Urine Urobilinogen Ur Leukocyte Esterase RPR Titer Nonreactive 07/07/17 07/09/17 09:14 11:40 WBC RBC Hgb Hct MCV MCH MCHC RDW Plt Count MPV Sodium Potassium Chloride Carbon Dioxide Anion Gap BUN Creatinine Creat Clearance w eGFR Random Glucose Calcium Total Bilirubin AST ALT Alkaline Phosphatase [place] 45.07 H Total Protein Albumin Urine Color Ltyellow Urine Appearance Clear Urine pH 6.0 Ur Specific [place] 1.010 Urine Protein Negative Urine Glucose (UA) Negative Urine Ketones Negative Urine Blood Negative Urine Nitrite Negative Urine Bilirubin Negative Urine Urobilinogen Negative Ur Leukocyte Esterase Negative RPR Titer PT DECLINED AMMONIA RESULT/TREATMENT. - Treatment Hospital Course: Detox Protocol Followed, Detoxed Safely, Responded well, Discharged Condition Good - Medication Discharge Medications: Ambulatory Orders NK [No Known Home Medication] 09/12/16 - Diagnosis (1) Nicotine dependence Status: Acute Qualifiers: Nicotine product type: cigarettes Substance use status: in withdrawal Qualified Code(s): F17.213 - Nicotine dependence, cigarettes, with withdrawal (2) Sedative, hypnotic or anxiolytic dependence with withdrawal, uncomplicated Status: Acute (3) Opioid dependence with withdrawal Status: Acute (4) Cocaine dependence Status: Acute Qualifiers: Substance use status: uncomplicated Qualified Code(s): F14.20 - Cocaine dependence, uncomplicated - AMA Did Patient Leave Against Medical Advice: Yes (AMA)
[2017-07-10] MEDS ORDERED: diazePAM 5 MG TABLET PO SCH (10:00)
== END 2017-07-09 02:05 | disposition left against medical advice (07) | DRG 770 ==
LOC: YASAS 19:03 → Y3N 23:30
PROVIDERS: ADMIT Internal Medicine; ATTEND Internal Medicine
PROC: HZ2ZZZZ Detoxification Services for Substance Abuse Treatment (ICD-10-PCS; principal; 2017-07-05)
DX: F11.23 Opioid dependence with withdrawal (principal); F13.230 Sedative, hypnotic or anxiolytic dependence with withdrawal, uncomplicated; F14.20 Cocaine dependence, uncomplicated; F17.213 Nicotine dependence, cigarettes, with withdrawal; F19.24 Other psychoactive substance dependence with psychoactive substance-induced mood disorder; F41.8 Other specified anxiety disorders; K59.01 Slow transit constipation; G47.00 Insomnia, unspecified; S09.90XS Unspecified injury of head, sequela; W19.XXXA Unspecified fall, initial encounter; Y93.9 Activity, unspecified; Y92.239 Unspecified place in hospital as the place of occurrence of the external cause; Z88.0 Allergy status to penicillin
CPT/HCPCS: 36415; 80053; 81003; 82140; 85027; 86593; 93005; 93010; Q0162

== ENCOUNTER 2017-11-19 13:36 | Inpatient (IN) | payer OTHER ==
[2017-11-19 15:24] VITALS: BMI 20.7
--- NOTE | 2017-11-19 15:49 | HP ---
CIWA Score - CIWA Score Nausea/Vomitin-No Nausea/No Vomiting Muscle Tremors: None Anxiety: 2 Agitation: 1-Slight > Activity Paroxysmal Sweats: No Perspiration Orientation: 0-Oriented Tacttile Disturbances: 0-None Auditory Disturbances: 2-Mild Harshness/Frighten Visual Disturbances: 2-Mild Sensitivity Headache: 2-Mild CIWA-Ar Total Score: 9 Admission ROS BHS - HPI Allergies/Adverse Reactions: Allergies Allergy/AdvReac Type Severity Reaction Status Date / Time Penicillins Allergy Severe Rash Verified 07/06/17 01:50 History of Present Illness: patient here requesting detox from etoh use , referred by [facility] x 4 mo , daily dose claims 100 mg , last taken today . Denies seizures, blackouts , tremors , sometimes drinking in the mornings . etoh use : 2-3 cans /day k2 : daily cocaine : 3-4 bags /day IVDU in [place] , needles from exchange , denies sharing , denies abscess heroin use : OD x 3 , most recently April 2017 , EMS / Narcan used , current use 2-3 bags daily benzo : xanax, klonopin 1-2 /day , reports anxiety if not using. tobacco use: 1 ppd , requesting nrt w/ gum pmhx : denies pshx : denies psych : depression , anxiety , bipolar d/o allergies : pcn meds : none , has not seen psych > 2 mo Exam Limitations: No Limitations - Ebola screening Have you traveled outside of the country in the last 21 days: No Have you had contact with anyone from an Ebola affected area: No Have you been sick,other than usual withdrawal symptoms: No Do you have a fever: No - Review of Systems Constitutional: See HPI EENT: reports: No Symptoms Reported Respiratory: reports: No Symptoms reported Cardiac: reports: No Symptoms Reported GI: reports: No Symptoms Reported : reports: No Symptoms Reported Musculoskeletal: reports: No Symptoms Reported Integumentary: reports: No Symptoms Reported Neuro: reports: No Symptoms reported Endocrine: reports: No Symptoms Reported Psychiatric: reports: Judgement Intact, Orientated x3, Anxious, Depressed Other Systems: Reviewed and Negative Patient History - Patient Medical History Hx Anemia: No Hx Asthma: No Hx Chronic Obstructive Pulmonary Disease (COPD): No Hx Cancer: No Hx Cardiac Disorders: No Hx Congestive Heart Failure: No Hx Hypertension: No Hx Hypercholesterolemia: No Hx Pacemaker: No HX Cerebrovascular Accident: No Hx Seizures: No Hx Dementia: No Hx Diabetes: No Hx Gastrointestinal Disorders: No Hx Liver Disease: No Hx Genitourinary Disorders: No Hx Sexually Transmitted Disorders: No Hx Renal Disease (ESRD): No Hx Thyroid Disease: No Hx Human Immunodeficiency Virus (HIV): No (09/10 last negative) Hx Hepatitis C: No Hx Depression: Yes (Not on medication) Hx Suicide Attempt: No (Denies suicide attempt and suicidakl ideation at this time) Hx Bipolar Disorder: No Hx Schizophrenia: No - Patient Surgical History Past Surgical History: No Hx Neurologic Surgery: No Hx Cataract Extraction: No Hx Cardiac Surgery: No Hx Lung Surgery: No Hx Breast Surgery: No Hx Breast Biopsy: No Hx Abdominal Surgery: No Hx Appendectomy: No Hx Cholecystectomy: No Hx Genitourinary Surgery: No Hx Section: No Hx Orthopedic Surgery: No Anesthesia Reaction: No - PPD History Date: 09/14/16 - Smoking Cessation Smoking history: Current every day smoker Have you smoked in the past 12 months: Yes Aproximately how many cigarettes per day: 20 Cigars Per Day: 0 Hx Chewing Tobacco Use: No Initiated information on smoking cessation: No Family Disease History - Family Disease History Family Disease History: Diabetes: Mother, Other: Father (hld) Admission Physical Exam BHS - Vital Signs Vital Signs: Vital Signs - 24 hr 11/19/17 15:21 Temperature 97.8 F Pulse Rate 50 L Respiratory 18 Rate Blood Pressure 103/67 - Physical General Appearance: Yes: Within Normal Limits, No Apparent Distress, Nourished, Appropriately Dressed HEENTM: Yes: Within Normal Limits, EOMI, Hearing grossly Normal, Normal ENT Inspection, Normocephalic, Normal Voice, HANY, Pharynx Normal, Tm's normal Respiratory: Yes: Within Normal Limits, Chest Non-Tender, Lungs Clear, Normal Breath Sounds, No Respiratory Distress, No Accessory Muscle Use Neck: Yes: Within Normal Limits, No masses,lesions,Nodules, Trachea in good position Cardiology: Yes: Within Normal Limits, Regular Rhythm, Regular Rate Abdominal: Yes: Within Normal Limits, Normal Bowel Sounds, Non Tender, Flat, Soft Genitourinary: Yes: Within Normal Limits Back: Yes: Within Normal Limits, Normal Inspection Musculoskeletal: Yes: Within Normal Limits, full range of Motion, Gait Steady, Pelvis Stable Extremities: Yes: Within Normal Limits, Normal Capillary Refill, Normal Inspection, Normal Range of Motion, Non-Tender Neurological: Yes: Within Normal Limits, 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 NML intact, Fully Oriented, Alert, Motor Strength 5/5, Normal Mood/Affect, Normal Response Integumentary: Yes: Track Jason Lymphatic: Yes: Within Normal Limits - Diagnostic (1) Alcohol abuse Current Visit: Yes Status: Acute (2) Opioid dependence on agonist therapy Current Visit: No Status: Acute (3) Sedative, hypnotic or anxiolytic dependence with withdrawal, uncomplicated Current Visit: No Status: Acute BHS Breath Alcohol Content Breath Alcohol Content: 0 Urine Drug Screen - Results Drug Screen Negative: No Urine Drug Screen Results: DELFINO-Cocaine, OPI-Opiates, BZO-Benzodiazepines, MTD- Methadone
[2017-11-19] MEDS ORDERED: chlordiazePOXIDE HCL 25 MG CAPSULE PO PRN (15:53)
[2017-11-19] MEDS ORDERED: MAGNESIUM HYDROX 2400MG/30ML ORAL SUSPENSION 30 ML CUP PO PRN (15:54)
[2017-11-19] MEDS ORDERED: IBUPROFEN 400 MG TABLET (FP) PO PRN (15:54)
[2017-11-19] MEDS ORDERED: MENTHOL/PHENOL 1 EACH UD MM PRN (15:54)
[2017-11-19] MEDS ORDERED: MAGNESIUM CITRATE 300 ML BOTTLE PO PRN (15:54)
[2017-11-19] MEDS ORDERED: P-EPHED 60MG/TRIPROLIDI 2.5MG TABLET PO PRN (15:54)
[2017-11-19] MEDS ORDERED: LOPERAMIDE HCL 2 MG CAPSULE PO PRN (15:54)
[2017-11-19] MEDS ORDERED: guaiFENesin/D-METHORPHAN HB 10 ML UNIT-DOSE CUPS PO PRN (15:54)
[2017-11-19] MEDS: chlordiazePOXIDE HCL 25 MG CAPSULE PO SCH (22:20)
[2017-11-19] MEDS: THIAMINE HCL 100 MG TABLET (FP) PO SCH (22:20)
[2017-11-19] MEDS: MELATONIN 5 MG TABLETS PO PRN (23:22)
[2017-11-19] MEDS: ACETAMINOPHEN 325 MG TABLET (FP) PO PRN (23:22)
[2017-11-20 02:28] LABS: URINE APPEARANCE CLEAR; URINE BILIRUBIN NEGATIVE (<2.0 mg/dL); URINE COLOR AMBER; URINE GLUCOSE (UA) NEGATIVE (NEGATIVE); URINE KETONE NEGATIVE (NEGATIVE); URINE LEUK ESTERASE TRACE (NEGATIVE); URINE NITRITE NEGATIVE (NEGATIVE); URINE PROTEIN NEGATIVE (NEGATIVE)
[2017-11-20 02:56] LABS: EPI CELLS RARE /HPF (FEW); URINE MUCUS FEW
[2017-11-20] MEDS: chlordiazePOXIDE HCL 25 MG CAPSULE PO SCH ×3 (05:18→17:01)
[2017-11-20] MEDS ORDERED: METHADONE HCL 10 MG TABLET PO SCH (06:00)
[2017-11-20 10:00] LABS: HEMATOCRIT 40.8 % (35.4-49); HEMOGLOBIN 13.5 GM/dL (11.7-16.9); MCH 29.6 pg (25.7-33.7); MCHC 33.2 g/dl (32.0-35.9); MEAN CELL VOLUME 89.2 fl (80-96); MEAN PLT VOLUME 8.9 fl (7.5-11.1); PLATELET COUNT 264 K/MM3 (134-434); RBC 4.57 M/mm3 (4.00-5.60); RDW 14.9 % (11.9-15.9); WHITE BLOOD COUNT 5.3 K/mm3 (4.0-10.0)
[2017-11-20] MEDS ORDERED: METHADONE HCL 10 MG TABLET PO ONE (10:00)
[2017-11-20] MEDS ORDERED: METHADONE 80 MG, METHADONE 20 MG PO ONE (10:00)
[2017-11-20] MEDS: PRENATAL VITAMINS W/ FOLIC ACID TABLET (FP) PO SCH (10:06)
[2017-11-20] MEDS ORDERED: METHADONE HCL 10 MG TABLET ONE (10:09)
[2017-11-20] MEDS ORDERED: METHADONE HCL 40 MG DISPERSABLE TABLET ONE (10:09)
[2017-11-20] MEDS: NICOTINE POLACRILEX 2 MG GUM BC PRN ×2 (10:12→14:43)
[2017-11-20 10:35] LABS: ALBUMIN 3.6 g/dl (3.4-5.0); ALK PHOS 89 U/L (45-117); ANION GAP 11 MMOL/L (8-16); BILIRUBIN,TOTAL 0.3 mg/dL (0.2-1); BLOOD UREA NITROGEN 9 mg/dL (7-18); CALCIUM 8.9 mg/dL (8.5-10.1); CHLORIDE 103 mmol/L (98-107); CO2 26 mmol/L (21-32); CREATININE 0.7 mg/dL (0.55-1.3); GLUCOSE,RANDOM 73 mg/dL (74-106); POTASSIUM 4.4 mmol/L (3.5-5.1); SGOT/AST 17 U/L (15-37); SGPT/ALT 19 U/L (13-61); SODIUM 140 mmol/L (136-145); TOT PROT 7.1 g/dl (6.4-8.2)
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
--- NOTE | 2017-11-20 11:44 | EKG ---
Test Reason : Blood Pressure : / mmHG Vent. Rate : 053 BPM Atrial Rate : 053 BPM P-R Int : 140 ms QRS Dur : 112 ms QT Int : 446 ms P-R-T Axes : 062 067 060 degrees QTc Int : 418 ms SINUS BRADYCARDIA VOLTAGE CRITERIA FOR LEFT VENTRICULAR HYPERTROPHY ABNORMAL ECG WHEN COMPARED WITH ECG OF 06-JUL-2017 03:50, NO SIGNIFICANT CHANGE WAS FOUND Confirmed by MARIAN HERNANDEZ, DARYL ([id number]) on 11/20/2017 11:43:43 AM Referred By: Confirmed By:DARYL FONSECA MD
[2017-11-20] MEDS: SERTRALINE HCL 50 MG TABLET (FP) PO SCH (13:01)
--- NOTE | 2017-11-20 15:33 | PN ---
S CIWA - CIWA Score Nausea/Vomitin-Mild Nausea/No Vomiting Muscle Tremors: 4-Moderate,w/Arms Extend Anxiety: 3 Agitation: 3 Paroxysmal Sweats: 1-Minimal Palms Moist Orientation: 0-Oriented Tacttile Disturbances: 0-None Auditory Disturbances: 0-None Visual Disturbances: 0-None Headache: 0-None Present CIWA-Ar Total Score: 12 BHS Progress Note (SOAP) Subjective: sweat tremor restlessness anxiety trouble sleep at night Objective: 11/20/17 15:32 Vital Signs Temperature 98.1 F 11/20/17 13:19 Pulse Rate 65 11/20/17 13:19 Respiratory Rate 18 11/20/17 13:19 Blood Pressure 108/68 11/20/17 13:19 O2 Sat by Pulse Oximetry (%) Laboratory Last Values WBC 5.3 K/mm3 (4.0-10.0) 11/20/17 07:30 RBC 4.57 M/mm3 (4.00-5.60) 11/20/17 07:30 Hgb 13.5 GM/dL (11.7-16.9) 11/20/17 07:30 Hct 40.8 % (35.4-49) 11/20/17 07:30 MCV 89.2 fl (80-96) 11/20/17 07:30 MCH 29.6 pg (25.7-33.7) 11/20/17 07:30 MCHC 33.2 g/dl (32.0-35.9) 11/20/17 07:30 RDW 14.9 % (11.9-15.9) 11/20/17 07:30 Plt Count 264 K/MM3 (134-434) D 11/20/17 07:30 MPV 8.9 fl (7.5-11.1) 11/20/17 07:30 Sodium 140 mmol/L (136-145) 11/20/17 07:30 Potassium 4.4 mmol/L (3.5-5.1) 11/20/17 07:30 Chloride 103 mmol/L (98-107) 11/20/17 07:30 Carbon Dioxide 26 mmol/L (21-32) 11/20/17 07:30 Anion Gap 11 MMOL/L (8-16) 11/20/17 07:30 BUN 9 mg/dL (7-18) 11/20/17 07:30 Creatinine 0.7 mg/dL (0.55-1.3) 11/20/17 07:30 Creat Clearance w eGFR > 60 (>60) 11/20/17 07:30 Random Glucose 73 mg/dL (74-106) L 11/20/17 07:30 Calcium 8.9 mg/dL (8.5-10.1) 11/20/17 07:30 Total Bilirubin 0.3 mg/dL (0.2-1) 11/20/17 07:30 AST 17 U/L (15-37) 11/20/17 07:30 ALT 19 U/L (13-61) 11/20/17 07:30 Alkaline Phosphatase 89 U/L (45-117) 11/20/17 07:30 Total Protein 7.1 g/dl (6.4-8.2) 11/20/17 07:30 Albumin 3.6 g/dl (3.4-5.0) 11/20/17 07:30 Urine Color [place] 11/19/17 20:08 Urine Appearance Clear 11/19/17 20:08 Urine pH 6.0 (5.0-8.0) 11/19/17 20:08 Ur Specific [place] 1.023 (1.001-1.035) 11/19/17 20:08 Urine Protein Negative (NEGATIVE) 11/19/17 20:08 Urine Glucose (UA) Negative (NEGATIVE) 11/19/17 20:08 Urine Ketones Negative (NEGATIVE) 11/19/17 20:08 Urine Blood Negative (NEGATIVE) 11/19/17 20:08 Urine Nitrite Negative (NEGATIVE) 11/19/17 20:08 Urine Bilirubin Negative (<2.0 mg/dL) 11/19/17 20:08 Urine Urobilinogen 2.0 mg/dL (0.2-1.0) 11/19/17 20:08 Ur Leukocyte Esterase Trace (NEGATIVE) 11/19/17 20:08 Urine WBC (Auto) 3 /hpf (3-5) 11/19/17 20:08 Urine RBC (Auto) 1 /hpf (0-3) 11/19/17 20:08 Ur Epithelial Cells Rare /HPF (FEW) 11/19/17 20:08 Urine Mucus Few 11/19/17 20:08 RPR Titer Nonreactive (NONREACTIVE) 11/20/17 07:30 lab noted Assessment: 11/20/17 15:32 withdrawal sx 11/20/17 15:33 Plan: continue detox
--- NOTE | 2017-11-20 17:03 | PN ---
Psychiatric Progress Note Vital Signs: Vital Signs Period Temp Pulse Resp BP Sys/Newsome Pulse Ox Last 24 Hr 97.2 F-98.2 F 52-91 16-18 101-144/58-84 Date of Session: 11/20/17 Chief Complaint:: "i have bad anxiety." HPI: Pt. admitted to for alcohol, cocaine, opiate, and benzodiazepine dependence. ROS: unremarkable Current Medications: Active Medications Generic Name Dose Route Start Last Admin Trade Name Freq PRN Reason Stop Dose Admin Acetaminophen 650 mg 11/19/17 15:54 11/19/17 23:22 Tylenol - PO 650 mg Q4H PRN Administration FEVER Al Hydroxide/Mg Hydroxide 30 ml 11/19/17 15:54 Mylanta Oral Suspension - PO Q6H PRN DYSPEPSIA Chlordiazepoxide HCl 25 mg 11/19/17 23:00 11/20/17 10:05 Librium - PO 11/20/17 17:01 25 mg [id number] SENDY Administration Chlordiazepoxide HCl 15 mg 11/20/17 23:00 Librium - PO 11/21/17 17:01 [id number] SENDY Chlordiazepoxide HCl 10 mg 11/21/17 23:00 Librium - PO 11/22/17 17:01 [id number] SENDY Chlordiazepoxide HCl 5 mg 11/19/17 15:53 Librium - PO 11/22/17 15:52 Q4H PRN WITHDRAWAL(CONT SUBST) Chlordiazepoxide HCl 5 mg 11/22/17 23:00 Librium - PO 11/23/17 17:01 [id number] SENDY Eucalyptus/Menthol/Phenol/Sorbitol 1 each 11/19/17 15:54 Cepastat Lozenge - MM Q4H PRN SORE THROAT Guaifenesin 10 ml 11/19/17 15:54 Robitussin Dm - PO Q6H PRN COUGH Ibuprofen 400 mg 11/19/17 15:54 Motrin - PO Q6H PRN PAIN LEVEL 4-6 Loperamide HCl 4 mg 11/19/17 15:54 Imodium - PO Q6H PRN DIARRHEA Magnesium Citrate 300 ml 11/19/17 15:54 Citroma - PO Q48H PRN CONSTIPATION Magnesium Hydroxide 30 ml 11/19/17 15:54 Milk Of Magnesia - PO DAILY PRN CONSTIPATION Melatonin 5 mg 11/19/17 22:00 11/19/17 23:22 Melatonin PO 5 mg HS PRN Administration INSOMNIA Methadone HCl 80 mg/ Methadone 100 mg 11/21/17 06:00 HCl 20 mg PO 11/27/17 05:59 DAILY@0600 SENDY Nicotine Polacrilex 2 mg 11/19/17 15:54 11/20/17 14:43 Nicorette Gum - BC 2 mg Q2H PRN Administration NICOTINE REPLACEMENT RX Multivit/Folic Acid/Iron 1 tab 11/20/17 10:00 11/20/17 10:06 Vitamins (Sjr) - PO 1 tab DAILY SENDY Administration Pseudoephedrine/Triprolidine 1 combo 11/19/17 15:54 Actifed - PO TID PRN NASAL CONGESTION Sertraline HCl 50 mg 11/20/17 11:15 11/20/17 13:01 Zoloft - PO 50 mg DAILY SENDY Administration Thiamine HCl 100 mg 11/19/17 22:00 11/19/17 22:20 Vitamin B1 - PO 100 mg HS SENDY Administration Medication(s) Change(s): Yes. Will add vistaril 50mg q4h Current Side Effect: No Lab tests ordered: No Lab tests reviewed: Yes Provider note:: Chart reviewed. Pt. seen by sports book writer this morning. Reconsult ordered for anxiety. Pt. reports worsening anxiety. Pt spoken to about the properties, benefits, and side effects of vistaril. He reports favorable effects from previously accepting vistaril. Pt. also encouraged to utilize his coping skills to help reduce his anxiety. Pt. satisifed and receptive to feedback. Vistaril 50mg q4h ordered. Verbal consent given. Total face to face time:: 25 Mental Status Exam - Mental Status Exam Alert and Oriented to: Time, Place, Person Cognitive Function: Good Patient Appearance: Well Groomed Mood: Euthymic Affect: Mood Congruent Patient Behavior: Appropriate, Cooperative Speech Pattern: Clear, Appropriate Voice Loudness: Normal Thought Process: Intact, Goal Oriented Thought Disorder: Not Present Hallucinations: Denies Suicidal Ideation: Denies Homicidal Ideation: Denies Insight/Judgement: Poor Sleep: Poorly Appetite: Fair Muscle strength/Tone: Normal Gait/Station: Normal Psychiatric Treatment Plan - Problem List (1) Substance induced mood disorder Current Visit: Yes (2) Opioid dependence on agonist therapy Current Visit: Yes (3) Sedative, hypnotic or anxiolytic dependence with withdrawal, uncomplicated Current Visit: Yes (4) Alcohol dependence Current Visit: Yes (5) Cocaine dependence Current Visit: Yes Qualifiers: Substance use status: uncomplicated Qualified Code(s): F14.20 - Cocaine dependence, uncomplicated
[2017-11-20] MEDS: hydrOXYzine PAMOATE 50 MG CAPSULE (FP) PO PRN ×2 (17:46→22:46)
[2017-11-20] MEDS ORDERED: chlordiazePOXIDE 5 MG CAPSULE PO PRN (21:36)
[2017-11-20] MEDS: chlordiazePOXIDE 5 MG CAPSULE PO SCH (22:46)
[2017-11-20] MEDS: THIAMINE HCL 100 MG TABLET (FP) PO SCH (22:46)
[2017-11-21] MEDS ORDERED: METHADONE HCL 40 MG DISPERSABLE TABLET ONE (04:44)
[2017-11-21] MEDS ORDERED: METHADONE HCL 10 MG TABLET ONE (04:45)
[2017-11-21] MEDS: chlordiazePOXIDE 5 MG CAPSULE PO SCH ×4 (05:43→22:27)
[2017-11-21] MEDS: METHADONE 80 MG, METHADONE 20 MG PO SCH (05:43)
[2017-11-21] MEDS ORDERED: METHADONE HCL 10 MG TABLET PO SCH (06:00)
[2017-11-21] MEDS: SERTRALINE HCL 50 MG TABLET (FP) PO SCH (10:52)
[2017-11-21] MEDS: PRENATAL VITAMINS W/ FOLIC ACID TABLET (FP) PO SCH (10:53)
[2017-11-21] MEDS: hydrOXYzine PAMOATE 50 MG CAPSULE (FP) PO PRN (10:56)
[2017-11-21] MEDS: NICOTINE POLACRILEX 2 MG GUM BC PRN (12:32)
--- NOTE | 2017-11-21 12:45 | PN ---
S CIWA - CIWA Score Nausea/Vomitin-No Nausea/No Vomiting Muscle Tremors: None Anxiety: 2 Agitation: 1-Slight > Activity Paroxysmal Sweats: No Perspiration Orientation: 0-Oriented Tacttile Disturbances: 0-None Auditory Disturbances: 0-None Visual Disturbances: 0-None Headache: 0-None Present CIWA-Ar Total Score: 3 BHS Progress Note (SOAP) Subjective: Patient c/o anxiety. Pacing in room. Objective: 11/21/17 12:43 Vital Signs Temperature 98.1 F 11/21/17 09:12 Pulse Rate 79 11/21/17 09:12 Respiratory Rate 18 11/21/17 09:12 Blood Pressure 105/64 11/21/17 09:12 O2 Sat by Pulse Oximetry (%) Laboratory Tests 11/19/17 11/20/17 11/20/17 20:08 07:30 07:30 WBC 5.3 RBC 4.57 Hgb 13.5 Hct 40.8 MCV 89.2 MCH 29.6 MCHC 33.2 RDW 14.9 Plt Count 264 D MPV 8.9 Sodium 140 Potassium 4.4 Chloride 103 Carbon Dioxide 26 Anion Gap 11 BUN 9 Creatinine 0.7 Creat Clearance w eGFR > 60 Random Glucose 73 L Calcium 8.9 Total Bilirubin 0.3 AST 17 ALT 19 Alkaline Phosphatase 89 Total Protein 7.1 Albumin 3.6 Urine Color Roopa Urine Appearance Clear Urine pH 6.0 Ur Specific [place] 1.023 Urine Protein Negative Urine Glucose (UA) Negative Urine Ketones Negative Urine Blood Negative Urine Nitrite Negative Urine Bilirubin Negative Urine Urobilinogen 2.0 Ur Leukocyte Esterase Trace Urine WBC (Auto) 3 Urine RBC (Auto) 1 Ur Epithelial Cells Rare Urine Mucus Few RPR Titer 11/20/17 07:30 WBC RBC Hgb Hct MCV MCH MCHC RDW Plt Count MPV Sodium Potassium Chloride Carbon Dioxide Anion Gap BUN Creatinine Creat Clearance w eGFR Random Glucose Calcium Total Bilirubin AST ALT Alkaline Phosphatase Total Protein Albumin Urine Color Urine Appearance Urine pH Ur Specific [place] Urine Protein Urine Glucose (UA) Urine Ketones Urine Blood Urine Nitrite Urine Bilirubin Urine Urobilinogen Ur Leukocyte Esterase Urine WBC (Auto) Urine RBC (Auto) Ur Epithelial Cells Urine Mucus RPR Titer Nonreactive alert and oriented x 3 skin warm and dry car s1s2 resp cta bl psych +anxiety Assessment: 11/21/17 12:44 withdrawal syndrome Plan: continue detox as ordered encourage oral fluids continue to monitor clinically
[2017-11-21] MEDS: ACETAMINOPHEN 325 MG TABLET (FP) PO PRN (17:16)
[2017-11-21] MEDS: MAG HYDROX/AL HYDROX/SIMETH 30 ML UNIT-DOSE CUP PO PRN (17:31)
[2017-11-21] MEDS: THIAMINE HCL 100 MG TABLET (FP) PO SCH (22:27)
[2017-11-21] MEDS: MELATONIN 5 MG TABLETS PO PRN (22:28)
[2017-11-22] MEDS ORDERED: METHADONE HCL 10 MG TABLET ONE (04:35)
[2017-11-22] MEDS ORDERED: METHADONE HCL 40 MG DISPERSABLE TABLET ONE (04:35)
[2017-11-22] MEDS: chlordiazePOXIDE 5 MG CAPSULE PO SCH ×4 (04:58→22:25)
[2017-11-22] MEDS: METHADONE 80 MG, METHADONE 20 MG PO SCH (04:59)
[2017-11-22] MEDS: SERTRALINE HCL 50 MG TABLET (FP) PO SCH (10:17)
[2017-11-22] MEDS: PRENATAL VITAMINS W/ FOLIC ACID TABLET (FP) PO SCH (10:17)
--- NOTE | 2017-11-22 11:46 | PN ---
BHS Progress Note (SOAP) Subjective: sweats tired Objective: 11/22/17 11:45 Vital Signs Temperature 96.9 F L 11/22/17 09:31 Pulse Rate 72 11/22/17 09:31 Respiratory Rate 18 11/22/17 09:31 Blood Pressure 117/76 11/22/17 09:31 O2 Sat by Pulse Oximetry (%) aaox3 ambulating no acute distress Assessment: 11/22/17 11:45 mild withdrawals Plan: continue detox increase fluids d/c in am
[2017-11-22] MEDS: NICOTINE POLACRILEX 2 MG GUM BC PRN ×2 (13:14→20:09)
[2017-11-22] MEDS: MAG HYDROX/AL HYDROX/SIMETH 30 ML UNIT-DOSE CUP PO PRN (14:59)
[2017-11-22] MEDS: THIAMINE HCL 100 MG TABLET (FP) PO SCH (22:25)
[2017-11-22] MEDS: MELATONIN 5 MG TABLETS PO PRN (22:27)
[2017-11-23] MEDS ORDERED: METHADONE HCL 40 MG DISPERSABLE TABLET ONE (05:02)
[2017-11-23] MEDS ORDERED: METHADONE HCL 10 MG TABLET ONE (05:03)
[2017-11-23] MEDS: chlordiazePOXIDE 5 MG CAPSULE PO SCH (05:44)
[2017-11-23] MEDS: METHADONE 80 MG, METHADONE 20 MG PO SCH (05:44)
--- NOTE | 2017-11-23 08:30 | DS ---
[facility] Detox Discharge Summary Admission Date: 11/19/17 Discharge Date: 11/23/17 - History Present History: Alcohol Dependence, Sedative Dependence Additional Comments: Patient medically stable. Follow up with primary care provide in 1 -2 weeks. Patient to follow up with . [facility] 11/25/17 for aftercare. If worsening symptoms follow up with the ED. - Physical Exam Results Vital Signs: Vital Signs Temperature 97.2 F L 11/23/17 07:29 Pulse Rate 65 11/23/17 07:29 Respiratory Rate 18 11/23/17 07:29 Blood Pressure 117/67 11/23/17 07:29 O2 Sat by Pulse Oximetry (%) Pertinent Admission Physical Exam Findings: Vital Signs Temperature 97.2 F L 11/23/17 07:29 Pulse Rate 65 11/23/17 07:29 Respiratory Rate 18 11/23/17 07:29 Blood Pressure 117/67 11/23/17 07:29 O2 Sat by Pulse Oximetry (%) Laboratory Last Values WBC 5.3 K/mm3 (4.0-10.0) 11/20/17 07:30 RBC 4.57 M/mm3 (4.00-5.60) 11/20/17 07:30 Hgb 13.5 GM/dL (11.7-16.9) 11/20/17 07:30 Hct 40.8 % (35.4-49) 11/20/17 07:30 MCV 89.2 fl (80-96) 11/20/17 07:30 MCH 29.6 pg (25.7-33.7) 11/20/17 07:30 MCHC 33.2 g/dl (32.0-35.9) 11/20/17 07:30 RDW 14.9 % (11.9-15.9) 11/20/17 07:30 Plt Count 264 K/MM3 (134-434) D 11/20/17 07:30 MPV 8.9 fl (7.5-11.1) 11/20/17 07:30 Sodium 140 mmol/L (136-145) 11/20/17 07:30 Potassium 4.4 mmol/L (3.5-5.1) 11/20/17 07:30 Chloride 103 mmol/L (98-107) 11/20/17 07:30 Carbon Dioxide 26 mmol/L (21-32) 11/20/17 07:30 Anion Gap 11 MMOL/L (8-16) 11/20/17 07:30 BUN 9 mg/dL (7-18) 11/20/17 07:30 Creatinine 0.7 mg/dL (0.55-1.3) 11/20/17 07:30 Creat Clearance w eGFR > 60 (>60) 11/20/17 07:30 Random Glucose 73 mg/dL (74-106) L 11/20/17 07:30 Calcium 8.9 mg/dL (8.5-10.1) 11/20/17 07:30 Total Bilirubin 0.3 mg/dL (0.2-1) 11/20/17 07:30 AST 17 U/L (15-37) 11/20/17 07:30 ALT 19 U/L (13-61) 11/20/17 07:30 Alkaline Phosphatase 89 U/L (45-117) 11/20/17 07:30 Total Protein 7.1 g/dl (6.4-8.2) 11/20/17 07:30 Albumin 3.6 g/dl (3.4-5.0) 11/20/17 07:30 Urine Color Roopa 11/19/17 20:08 Urine Appearance Clear 11/19/17 20:08 Urine pH 6.0 (5.0-8.0) 11/19/17 20:08 Ur Specific [place] 1.023 (1.001-1.035) 11/19/17 20:08 Urine Protein Negative (NEGATIVE) 11/19/17 20:08 Urine Glucose (UA) Negative (NEGATIVE) 11/19/17 20:08 Urine Ketones Negative (NEGATIVE) 11/19/17 20:08 Urine Blood Negative (NEGATIVE) 11/19/17 20:08 Urine Nitrite Negative (NEGATIVE) 11/19/17 20:08 Urine Bilirubin Negative (<2.0 mg/dL) 11/19/17 20:08 Urine Urobilinogen 2.0 mg/dL (0.2-1.0) 11/19/17 20:08 Ur Leukocyte Esterase Trace (NEGATIVE) 11/19/17 20:08 Urine WBC (Auto) 3 /hpf (3-5) 11/19/17 20:08 Urine RBC (Auto) 1 /hpf (0-3) 11/19/17 20:08 Ur Epithelial Cells Rare /HPF (FEW) 11/19/17 20:08 Urine Mucus Few 11/19/17 20:08 RPR Titer Nonreactive (NONREACTIVE) 11/20/17 07:30 - Treatment Hospital Course: Detox Protocol Followed, Detoxed Safely, Responded well, Discharged Condition Good, Rehab Referral Accepted Patient has Accepted a Rehab Referral to: [facility] 11/25/17 - Medication Discharge Medications: Ambulatory Orders Sertraline HCl [Zoloft -] 50 mg PO DAILY 11/20/17 - Diagnosis (1) Alcohol dependence with withdrawal Current Visit: Yes Status: Acute Qualifiers: Complication of substance-induced condition: uncomplicated Qualified Code(s ): F10.230 - Alcohol dependence with withdrawal, uncomplicated (2) Cocaine dependence Current Visit: Yes Status: Acute Qualifiers: Substance use status: uncomplicated Qualified Code(s): F14.20 - Cocaine dependence, uncomplicated (3) Sedative, hypnotic or anxiolytic dependence with withdrawal, uncomplicated Current Visit: Yes Status: Acute (4) Opioid dependence on agonist therapy Current Visit: Yes Status: Chronic (5) Nicotine dependence Current Visit: Yes Status: Acute Qualifiers: Nicotine product type: cigarettes Substance use status: in withdrawal Qualified Code(s): F17.213 - Nicotine dependence, cigarettes, with withdrawal - AMA Did Patient Leave Against Medical Advice: Yes
[2017-11-23 09:06] VITALS: BP 100/71; PULSE 83; TEMP 98.2
== END 2017-11-23 09:10 | disposition home or self-care (01) | DRG 773 ==
LOC: YASAS 13:36 → Y6N 17:47
PROC: HZ2ZZZZ Detoxification Services for Substance Abuse Treatment (ICD-10-PCS; principal; 2017-11-19)
DX: F10.230 Alcohol dependence with withdrawal, uncomplicated (principal); F13.230 Sedative, hypnotic or anxiolytic dependence with withdrawal, uncomplicated; F14.20 Cocaine dependence, uncomplicated; F11.20 Opioid dependence, uncomplicated; F17.213 Nicotine dependence, cigarettes, with withdrawal; F19.24 Other psychoactive substance dependence with psychoactive substance-induced mood disorder; F32.9 Major depressive disorder, single episode, unspecified; Z88.0 Allergy status to penicillin
CPT/HCPCS: 36415; 80053; 81003; 81015; 85027; 86593; 93005; 93010

== ENCOUNTER 2018-01-10 13:41 | Inpatient (IN) | payer OTHER ==
[2018-01-10 13:58] VITALS: BMI 24.0
--- NOTE | 2018-01-10 17:04 | HP ---
CIWA Score - Admission Criteria [facility] Guidelines: Admission for Medically Managed Detox: Requires at least one of the followin. CIWA greater than 12 2. Seizures within the past 24 hours 3. Delirium tremens within the past 24 hours 4. Hallucinations within the past 24 hours 5. Acute intervention needed for co occurring medical disorder 6. Acute intervention needed for co occurring psychiatric disorder 7. Severe withdrawal that cannot be handled at a lower level of care (continued vomiting, continued diarrhea, abnormal vital signs) requiring intravenous medication and/or fluids 8. Admission ROS S - HPI Chief Complaint: pt is here for rehab admission. Pt was admitted to [facility] from 01/06/18-01/10/18 and successfully completed detox. Says he did well with detox. Pt was using several substances Heroin- 2 bags/day Cocaine: 3-4 bags- says it gives him energy cotton ball K2: "all that I can", super high, it is like 6 blunts of weed, benzo- klonopin/zanax- uses this to deal with depression alcohol- likes the tingling feeling and heat SAys delilah and helps with anxiety and depression DUR- shows no recent controlled meds U tox:methadone, benzo Allergies/Adverse Reactions: Allergies Allergy/AdvReac Type Severity Reaction Status Date / Time Penicillins Allergy Severe Rash Verified 01/10/18 15:16 - Ebola screening Have you been sick,other than usual withdrawal symptoms: No Patient History - Patient Medical History Hx Anemia: No Hx Asthma: No Hx Chronic Obstructive Pulmonary Disease (COPD): No Hx Cancer: No Hx Cardiac Disorders: No Hx Congestive Heart Failure: No Hx Hypertension: No Hx Hypercholesterolemia: No Hx Pacemaker: No HX Cerebrovascular Accident: No Hx Seizures: No Hx Dementia: No Hx Diabetes: No Hx Gastrointestinal Disorders: No Hx Liver Disease: No Hx Genitourinary Disorders: No Hx Sexually Transmitted Disorders: No Hx Renal Disease (ESRD): No Hx Thyroid Disease: No Hx Human Immunodeficiency Virus (HIV): No (09/10 last negative) Hx Hepatitis C: No Hx Depression: Yes Hx Suicide Attempt: No Hx Bipolar Disorder: No Hx Schizophrenia: No - Patient Surgical History Past Surgical History: No Hx Neurologic Surgery: No Hx Cataract Extraction: No Hx Cardiac Surgery: No Hx Lung Surgery: No Hx Breast Surgery: No Hx Breast Biopsy: No Hx Abdominal Surgery: No Hx Appendectomy: No Hx Cholecystectomy: No Hx Genitourinary Surgery: No Hx Section: No Hx Orthopedic Surgery: No Anesthesia Reaction: No - PPD History Previous Implant?: Yes Documented Results: Negative w/proof Implanted On Prior [facility] Admission?: Yes Date: 11/21/17 Results: 0 mm - Smoking Cessation Smoking history: Current every day smoker Have you smoked in the past 12 months: Yes Aproximately how many cigarettes per day: 20 Cigars Per Day: 0 Hx Chewing Tobacco Use: No Initiated information on smoking cessation: Yes 'Breaking Loose' booklet given: 01/21/18 - Substances Abused Alcohol Route: Oral Frequency: Daily Amount used: 1 PINT RUM/ 2-3 BEERS Age of first use: 12 Date of Last Use: 01/06/18 k2 Route: Smoking Frequency: Daily Amount used: 1-2 sticks Age of first use: 33 Date of Last Use: 01/06/18 Family Disease History - Family Disease History Family Disease History: Diabetes: Mother, Other: Father (hld) Admission Physical Exam [facility] - Vital Signs Vital Signs: Vital Signs - 24 hr 01/10/18 13:54 Temperature 97.5 F L Pulse Rate 70 Respiratory 19 Rate Blood Pressure 111/70 - Physical General Appearance: Yes: Within Normal Limits HEENTM: Yes: Within Normal Limits Respiratory: Yes: Within Normal Limits Neck: Yes: Within Normal Limits Cardiology: Yes: Within Normal Limits Abdominal: Yes: Within Normal Limits Genitourinary: Yes: Within Normal Limits Back: Yes: Within Normal Limits Musculoskeletal: Yes: Within Normal Limits Extremities: Yes: Within Normal Limits Neurological: Yes: Within Normal Limits Integumentary: Yes: Within Normal Limits Lymphatic: Yes: Within Normal Limits - Diagnostic (1) Alcohol dependence with withdrawal Current Visit: No Status: Acute Qualifiers: Complication of substance-induced condition: uncomplicated Qualified Code(s ): F10.230 - Alcohol dependence with withdrawal, uncomplicated (2) Cocaine dependence Current Visit: No Status: Acute Qualifiers: Substance use status: uncomplicated Qualified Code(s): F14.20 - Cocaine dependence, uncomplicated (3) Drug-induced mood disorder Current Visit: No Status: Acute (4) Anxiety and depression Current Visit: No Status: Chronic (5) Opioid dependence on agonist therapy Current Visit: No Status: Chronic BHS Breath Alcohol Content Breath Alcohol Content: 0 Urine Drug Screen - Results Drug Screen Negative: No Urine Drug Screen Results: BZO-Benzodiazepines, MTD-Methadone Inpatient Rehab Admission - Initial Determination Are CD services needed?: Yes Free of communicable disease: Yes Not in need of hospitalization: Yes - Rehab Admission Criteria Previous failed treatment: Yes Poor recovery environment: Yes Comorbidities: Yes Lacks judgement: No Patient is meeting Inpatient Rehab admission criteria:: Yes (Pt completed detox for alcohol use and and benzo use. Continue methadone )
[2018-01-10] MEDS ORDERED: MAGNESIUM HYDROX 2400MG/30ML ORAL SUSPENSION 30 ML CUP PO PRN (17:17)
[2018-01-10] MEDS ORDERED: MAGNESIUM CITRATE 300 ML BOTTLE PO PRN (17:17)
[2018-01-10] MEDS ORDERED: LOPERAMIDE HCL 2 MG CAPSULE PO PRN (17:17)
[2018-01-10] MEDS ORDERED: TUBERCULIN PPD 5 TU/0.1ML VIAL ID ONE (20:54)
[2018-01-10] MEDS: MELATONIN 5 MG TABLETS PO PRN (22:01)
[2018-01-10] MEDS: THIAMINE HCL 100 MG TABLET (FP) PO SCH (22:01)
[2018-01-11] MEDS: PRENATAL VITAMINS W/ FOLIC ACID TABLET (FP) PO SCH (09:40)
--- NOTE | 2018-01-11 11:30 | PN ---
LEANNE Progress Note Note: Psychiatrist pinion sorter note: Called by nursing staff to order medications for patient. Medication reconciliation done and medications ordered
--- NOTE | 2018-01-11 12:15 | PN ---
[facility] Progress Note Note: Was called by JOLIE HallMarni due to pt requesting his daily methadone dose. Per RN, she was able to verify from pt's methadone program [facility] that he was on daily 100mg and was last medicated there on 01/06/18. Mr Hickey however was at [facility] ([facility]) - 01/10 for detox from where he came to us for Rehab 01/10. Nurse unable to verify methadone usage at [facility] because no one picked up the telephone. Pt's last visit for detox here was in October 2017, he also got methadone 100mg daily dose then and his dose was verified. Pt anxious and agitated at this time due to not having dose yet. Given pt previous hx, visits and review of medical record, pt will be dosed on a prn daily dose till verification can be done.
[2018-01-11 12:23] LABS: ALBUMIN 3.8 g/dl (3.4-5.0); ALK PHOS 98 U/L (45-117); ANION GAP 1 MMOL/L (8-16); BILIRUBIN,TOTAL 0.2 mg/dL (0.2-1); BLOOD UREA NITROGEN 17 mg/dL (7-18); CALCIUM 8.8 mg/dL (8.5-10.1); CHLORIDE 102 mmol/L (98-107); CO2 33 mmol/L (21-32); CREATININE 0.8 mg/dL (0.55-1.3); GLUCOSE,RANDOM 117 mg/dL (74-106); POTASSIUM 5.1 mmol/L (3.5-5.1); SGOT/AST 23 U/L (15-37); SGPT/ALT 21 U/L (13-61); SODIUM 135 mmol/L (136-145); TOT PROT 7.5 g/dl (6.4-8.2)
[2018-01-11] MEDS ORDERED: METHADONE HCL 10 MG TABLET PO ONE (12:36)
[2018-01-11 12:37] LABS: HEMATOCRIT 40.5 % (35.4-49); HEMOGLOBIN 13.1 GM/dL (11.7-16.9); MCH 29.2 pg (25.7-33.7); MCHC 32.4 g/dl (32.0-35.9); MEAN CELL VOLUME 90.2 fl (80-96); MEAN PLT VOLUME 8.5 fl (7.5-11.1); PLATELET COUNT 253 K/MM3 (134-434); RBC 4.49 M/mm3 (4.00-5.60); RDW 15.1 % (11.9-15.9); WHITE BLOOD COUNT 5.7 K/mm3 (4.0-10.0)
[2018-01-11] MEDS: DIVALPROEX SODIUM 500 MG TABLET E.C. PO SCH ×2 (12:41→22:44)
[2018-01-11] MEDS: NICOTINE POLACRILEX 4 MG GUM BUC PRN ×2 (12:42→17:50)
[2018-01-11] MEDS: SERTRALINE HCL 50 MG TABLET (FP) PO SCH (12:42)
[2018-01-11] MEDS: ACETAMINOPHEN 325 MG TABLET (FP) PO PRN (12:44)
[2018-01-11] MEDS ORDERED: METHADONE HCL 10 MG TABLET ONE (12:54)
[2018-01-11] MEDS ORDERED: METHADONE HCL 40 MG DISPERSABLE TABLET ONE (12:55)
[2018-01-11] MEDS ORDERED: METHADONE 80 MG, METHADONE 20 MG PO ONE (13:00)
[2018-01-11] MEDS: MELATONIN 5 MG TABLETS PO PRN (22:44)
[2018-01-11] MEDS: THIAMINE HCL 100 MG TABLET (FP) PO SCH (22:45)
[2018-01-12] MEDS ORDERED: METHADONE HCL 40 MG DISPERSABLE TABLET ONE (05:51)
[2018-01-12] MEDS ORDERED: METHADONE HCL 10 MG TABLET ONE (05:51)
[2018-01-12] MEDS ORDERED: METHADONE HCL 10 MG TABLET PO SCH (06:00)
[2018-01-12] MEDS: METHADONE 80 MG, METHADONE 20 MG PO SCH (06:06)
[2018-01-12] MEDS: PRENATAL VITAMINS W/ FOLIC ACID TABLET (FP) PO SCH (09:45)
[2018-01-12] MEDS: DIVALPROEX SODIUM 500 MG TABLET E.C. PO SCH ×2 (09:45→21:40)
[2018-01-12] MEDS: SERTRALINE HCL 50 MG TABLET (FP) PO SCH (09:45)
[2018-01-12] MEDS: IBUPROFEN 400 MG TABLET (FP) PO PRN (09:47)
[2018-01-12] MEDS: MAG HYDROX/AL HYDROX/SIMETH 30 ML UNIT-DOSE CUP PO PRN ×2 (11:41→19:44)
[2018-01-12] MEDS: NICOTINE POLACRILEX 4 MG GUM BUC PRN (16:07)
[2018-01-12 18:41] LABS: URINE APPEARANCE CLEAR; URINE BILIRUBIN NEGATIVE (<2.0 mg/dL); URINE COLOR YELLOW; URINE GLUCOSE (UA) NEGATIVE (NEGATIVE); URINE KETONE NEGATIVE (NEGATIVE); URINE LEUK ESTERASE NEGATIVE (NEGATIVE); URINE NITRITE NEGATIVE (NEGATIVE); URINE PROTEIN NEGATIVE (NEGATIVE); URINE UROBILINOGEN NEGATIVE mg/dL (0.2-1.0)
[2018-01-12] MEDS: THIAMINE HCL 100 MG TABLET (FP) PO SCH (21:40)
[2018-01-12] MEDS: MELATONIN 5 MG TABLETS PO PRN (21:40)
[2018-01-13] MEDS ORDERED: METHADONE HCL 40 MG DISPERSABLE TABLET ONE (04:02)
[2018-01-13] MEDS ORDERED: METHADONE HCL 10 MG TABLET ONE (04:02)
[2018-01-13] MEDS: METHADONE 80 MG, METHADONE 20 MG PO SCH (06:14)
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
[2018-01-13] MEDS: PRENATAL VITAMINS W/ FOLIC ACID TABLET (FP) PO SCH (10:49)
[2018-01-13] MEDS: DIVALPROEX SODIUM 500 MG TABLET E.C. PO SCH ×2 (10:49→22:07)
[2018-01-13] MEDS: SERTRALINE HCL 50 MG TABLET (FP) PO SCH (10:49)
[2018-01-13] MEDS: IBUPROFEN 400 MG TABLET (FP) PO PRN (10:50)
[2018-01-13] MEDS: NICOTINE POLACRILEX 4 MG GUM BUC PRN ×3 (10:51→22:08)
[2018-01-13] MEDS: hydrOXYzine PAMOATE 50 MG CAPSULE (FP) PO PRN ×2 (16:01→22:07)
[2018-01-13] MEDS: THIAMINE HCL 100 MG TABLET (FP) PO SCH (22:07)
--- NOTE | 2018-01-13 23:55 | EKG ---
Test Reason : Blood Pressure : / mmHG Vent. Rate : 064 BPM Atrial Rate : 064 BPM P-R Int : 144 ms QRS Dur : 108 ms QT Int : 442 ms P-R-T Axes : 039 053 035 degrees QTc Int : 455 ms NORMAL SINUS RHYTHM NORMAL ECG WHEN COMPARED WITH ECG OF 19-NOV-2017 20:39, NO SIGNIFICANT CHANGE WAS FOUND Confirmed by LYNN SOLORZANO MD ([id number]) on 01/13/2018 11:55:19 PM Referred By: Confirmed By:LYNN SOLORZANO MD
[2018-01-14] MEDS ORDERED: METHADONE HCL 40 MG DISPERSABLE TABLET ONE (03:57)
[2018-01-14] MEDS ORDERED: METHADONE HCL 10 MG TABLET ONE (03:57)
[2018-01-14] MEDS: METHADONE 80 MG, METHADONE 20 MG PO SCH (06:17)
[2018-01-14] MEDS: PRENATAL VITAMINS W/ FOLIC ACID TABLET (FP) PO SCH (10:17)
[2018-01-14] MEDS: SERTRALINE HCL 50 MG TABLET (FP) PO SCH (10:17)
[2018-01-14] MEDS: DIVALPROEX SODIUM 500 MG TABLET E.C. PO SCH ×2 (10:17→22:01)
[2018-01-14] MEDS: hydrOXYzine PAMOATE 50 MG CAPSULE (FP) PO PRN ×2 (10:17→22:02)
[2018-01-14] MEDS: NICOTINE POLACRILEX 4 MG GUM BUC PRN ×2 (10:18→22:03)
[2018-01-14] MEDS: THIAMINE HCL 100 MG TABLET (FP) PO SCH (22:01)
[2018-01-15] MEDS ORDERED: METHADONE HCL 10 MG TABLET ONE (04:04)
[2018-01-15] MEDS ORDERED: METHADONE HCL 40 MG DISPERSABLE TABLET ONE (04:04)
[2018-01-15] MEDS: METHADONE 80 MG, METHADONE 20 MG PO SCH (05:49)
[2018-01-15] MEDS: NICOTINE POLACRILEX 4 MG GUM BUC PRN ×3 (06:40→21:46)
[2018-01-15] MEDS: hydrOXYzine PAMOATE 50 MG CAPSULE (FP) PO PRN ×2 (10:15→21:45)
[2018-01-15] MEDS: PRENATAL VITAMINS W/ FOLIC ACID TABLET (FP) PO SCH (10:15)
[2018-01-15] MEDS: DIVALPROEX SODIUM 500 MG TABLET E.C. PO SCH ×2 (10:15→21:45)
[2018-01-15] MEDS: SERTRALINE HCL 50 MG TABLET (FP) PO SCH (10:15)
[2018-01-15] MEDS: THIAMINE HCL 100 MG TABLET (FP) PO SCH (21:45)
[2018-01-16] MEDS ORDERED: METHADONE HCL 40 MG DISPERSABLE TABLET ONE (03:29)
[2018-01-16] MEDS ORDERED: METHADONE HCL 10 MG TABLET ONE (03:29)
[2018-01-16] MEDS: METHADONE 80 MG, METHADONE 20 MG PO SCH (06:19)
[2018-01-16] MEDS: MENTHOL/PHENOL 1 EACH UD MM PRN ×2 (06:57→22:01)
[2018-01-16] MEDS: P-EPHED 60MG/TRIPROLIDI 2.5MG TABLET PO PRN ×2 (06:57→22:01)
[2018-01-16] MEDS: guaiFENesin/D-METHORPHAN HB 10 ML UNIT-DOSE CUPS PO PRN ×2 (06:57→22:01)
[2018-01-16] MEDS: PRENATAL VITAMINS W/ FOLIC ACID TABLET (FP) PO SCH (10:11)
[2018-01-16] MEDS: SERTRALINE HCL 50 MG TABLET (FP) PO SCH (10:11)
[2018-01-16] MEDS: DIVALPROEX SODIUM 500 MG TABLET E.C. PO SCH ×2 (10:11→22:01)
[2018-01-16] MEDS: NICOTINE POLACRILEX 4 MG GUM BUC PRN ×3 (10:12→22:08)
[2018-01-16] MEDS: hydrOXYzine PAMOATE 50 MG CAPSULE (FP) PO PRN ×2 (10:12→22:01)
[2018-01-16] MEDS: THIAMINE HCL 100 MG TABLET (FP) PO SCH (22:01)
[2018-01-17] MEDS ORDERED: METHADONE HCL 10 MG TABLET ONE (03:12)
[2018-01-17] MEDS ORDERED: METHADONE HCL 40 MG DISPERSABLE TABLET ONE (03:12)
[2018-01-17] MEDS: METHADONE 80 MG, METHADONE 20 MG PO SCH (05:52)
[2018-01-17] MEDS: DIVALPROEX SODIUM 500 MG TABLET E.C. PO SCH ×2 (10:32→22:08)
[2018-01-17] MEDS: SERTRALINE HCL 50 MG TABLET (FP) PO SCH (10:32)
[2018-01-17] MEDS: PRENATAL VITAMINS W/ FOLIC ACID TABLET (FP) PO SCH (10:32)
[2018-01-17] MEDS: hydrOXYzine PAMOATE 50 MG CAPSULE (FP) PO PRN ×2 (10:32→22:08)
[2018-01-17] MEDS: NICOTINE POLACRILEX 4 MG GUM BUC PRN ×3 (10:33→22:09)
[2018-01-17] MEDS: MENTHOL/PHENOL 1 EACH UD MM PRN ×2 (10:35→22:11)
[2018-01-17] MEDS: P-EPHED 60MG/TRIPROLIDI 2.5MG TABLET PO PRN ×2 (10:35→22:11)
--- NOTE | 2018-01-17 13:34 | PN ---
S Progress Note (SOAP) Subjective: c/o nasal congestion x 3 days. States feels better after Actifed. C/o acid reflux- burning sensation in stomach. Denies nausea/vomiting. Objective: A&O x 3. Throat w/o increased erythema, lesions, or exudate. Mild nasal congestion w/o discharge. Lungs CTA. Abd S/NT/BS+ Vital Signs - 24 hr 01/17/18 01/17/18 03:30 07:07 Temperature 97.7 F Pulse Rate 81 Respiratory 16 16 Rate Blood Pressure 106/65 Lab Results WBC 5.7 K/mm3 (4.0-10.0) 01/11/18 10:10 RBC 4.49 M/mm3 (4.00-5.60) 01/11/18 10:10 Hgb 13.1 GM/dL (11.7-16.9) 01/11/18 10:10 Hct 40.5 % (35.4-49) 01/11/18 10:10 MCV 90.2 fl (80-96) 01/11/18 10:10 MCHC 32.4 g/dl (32.0-35.9) 01/11/18 10:10 RDW 15.1 % (11.9-15.9) 01/11/18 10:10 Plt Count 253 K/MM3 (134-434) 01/11/18 10:10 Sodium 135 mmol/L (136-145) L 01/11/18 10:10 Potassium 5.1 mmol/L (3.5-5.1) 01/11/18 10:10 Chloride 102 mmol/L (98-107) 01/11/18 10:10 Carbon Dioxide 33 mmol/L (21-32) H 01/11/18 10:10 Anion Gap 1 MMOL/L (8-16) L 01/11/18 10:10 BUN 17 mg/dL (7-18) 01/11/18 10:10 Creatinine 0.8 mg/dL (0.55-1.3) 01/11/18 10:10 Random Glucose 117 mg/dL (74-106) H 01/11/18 10:10 Calcium 8.8 mg/dL (8.5-10.1) 01/11/18 10:10 Labs reviewed. Assessment: Opiate use disorder on methadone. Early remission poly-substance use. Acid reflux Plan: Continue Actifed. Increase water and tea intake. Start protonix.
[2018-01-17] MEDS: PANTOPRAZOLE 20 MG TABLET (FP) PO SCH (15:59)
[2018-01-17] MEDS: THIAMINE HCL 100 MG TABLET (FP) PO SCH (22:08)
[2018-01-17] MEDS: guaiFENesin/D-METHORPHAN HB 10 ML UNIT-DOSE CUPS PO PRN (22:11)
[2018-01-18] MEDS ORDERED: METHADONE HCL 40 MG DISPERSABLE TABLET ONE (04:05)
[2018-01-18] MEDS ORDERED: METHADONE HCL 10 MG TABLET ONE (04:05)
[2018-01-18] MEDS: METHADONE 80 MG, METHADONE 20 MG PO SCH (06:22)
[2018-01-18] MEDS: MENTHOL/PHENOL 1 EACH UD MM PRN ×2 (10:06→21:33)
[2018-01-18] MEDS: PANTOPRAZOLE 20 MG TABLET (FP) PO SCH (10:06)
[2018-01-18] MEDS: hydrOXYzine PAMOATE 50 MG CAPSULE (FP) PO PRN ×2 (10:06→21:32)
[2018-01-18] MEDS: DIVALPROEX SODIUM 500 MG TABLET E.C. PO SCH ×2 (10:06→21:32)
[2018-01-18] MEDS: PRENATAL VITAMINS W/ FOLIC ACID TABLET (FP) PO SCH (10:06)
[2018-01-18] MEDS: SERTRALINE HCL 50 MG TABLET (FP) PO SCH (10:06)
[2018-01-18] MEDS: NICOTINE POLACRILEX 4 MG GUM BUC PRN ×3 (10:07→21:32)
[2018-01-18] MEDS: P-EPHED 60MG/TRIPROLIDI 2.5MG TABLET PO PRN (10:39)
[2018-01-18] MEDS: guaiFENesin/D-METHORPHAN HB 10 ML UNIT-DOSE CUPS PO PRN (10:39)
[2018-01-18] MEDS: THIAMINE HCL 100 MG TABLET (FP) PO SCH (21:32)
[2018-01-19] MEDS: P-EPHED 60MG/TRIPROLIDI 2.5MG TABLET PO PRN (03:10)
[2018-01-19] MEDS ORDERED: METHADONE HCL 40 MG DISPERSABLE TABLET ONE (03:52)
[2018-01-19] MEDS ORDERED: METHADONE HCL 10 MG TABLET ONE (03:52)
[2018-01-19] MEDS: METHADONE 80 MG, METHADONE 20 MG PO SCH (05:59)
[2018-01-19] MEDS: SERTRALINE HCL 50 MG TABLET (FP) PO SCH (10:23)
[2018-01-19] MEDS: PRENATAL VITAMINS W/ FOLIC ACID TABLET (FP) PO SCH (10:23)
[2018-01-19] MEDS: DIVALPROEX SODIUM 500 MG TABLET E.C. PO SCH ×2 (10:23→21:38)
[2018-01-19] MEDS: PANTOPRAZOLE 20 MG TABLET (FP) PO SCH (10:23)
[2018-01-19] MEDS: ACETAMINOPHEN 325 MG TABLET (FP) PO PRN (10:24)
[2018-01-19] MEDS: NICOTINE POLACRILEX 4 MG GUM BUC PRN ×2 (10:24→21:38)
[2018-01-19] MEDS: hydrOXYzine PAMOATE 50 MG CAPSULE (FP) PO PRN (21:38)
[2018-01-19] MEDS: THIAMINE HCL 100 MG TABLET (FP) PO SCH (21:38)
[2018-01-20] MEDS: P-EPHED 60MG/TRIPROLIDI 2.5MG TABLET PO PRN (02:55)
[2018-01-20] MEDS ORDERED: METHADONE HCL 40 MG DISPERSABLE TABLET ONE (05:50)
[2018-01-20] MEDS ORDERED: METHADONE HCL 10 MG TABLET ONE (05:50)
[2018-01-20] MEDS: METHADONE 80 MG, METHADONE 20 MG PO SCH (06:08)
[2018-01-20] MEDS: DIVALPROEX SODIUM 500 MG TABLET E.C. PO SCH ×2 (10:56→21:17)
[2018-01-20] MEDS: PRENATAL VITAMINS W/ FOLIC ACID TABLET (FP) PO SCH (10:56)
[2018-01-20] MEDS: PANTOPRAZOLE 20 MG TABLET (FP) PO SCH (10:56)
[2018-01-20] MEDS: SERTRALINE HCL 50 MG TABLET (FP) PO SCH (10:56)
[2018-01-20] MEDS: NICOTINE POLACRILEX 4 MG GUM BUC PRN ×2 (10:57→21:19)
[2018-01-20] MEDS: THIAMINE HCL 100 MG TABLET (FP) PO SCH (21:17)
[2018-01-20] MEDS: hydrOXYzine PAMOATE 50 MG CAPSULE (FP) PO PRN (21:18)
[2018-01-20] MEDS: MELATONIN 5 MG TABLETS PO PRN (21:18)
[2018-01-21] MEDS: P-EPHED 60MG/TRIPROLIDI 2.5MG TABLET PO PRN ×3 (00:16→22:12)
[2018-01-21] MEDS ORDERED: METHADONE HCL 10 MG TABLET ONE (04:13)
[2018-01-21] MEDS ORDERED: METHADONE HCL 40 MG DISPERSABLE TABLET ONE (04:14)
[2018-01-21] MEDS: METHADONE 80 MG, METHADONE 20 MG PO SCH (06:10)
[2018-01-21] MEDS: SERTRALINE HCL 50 MG TABLET (FP) PO SCH (10:41)
[2018-01-21] MEDS: PANTOPRAZOLE 20 MG TABLET (FP) PO SCH (10:41)
[2018-01-21] MEDS: hydrOXYzine PAMOATE 50 MG CAPSULE (FP) PO PRN ×2 (10:41→22:10)
[2018-01-21] MEDS: PRENATAL VITAMINS W/ FOLIC ACID TABLET (FP) PO SCH (10:41)
[2018-01-21] MEDS: DIVALPROEX SODIUM 500 MG TABLET E.C. PO SCH ×2 (10:41→22:10)
[2018-01-21] MEDS: NICOTINE POLACRILEX 4 MG GUM BUC PRN ×2 (10:41→22:12)
[2018-01-21] MEDS: THIAMINE HCL 100 MG TABLET (FP) PO SCH (22:10)
[2018-01-21] MEDS: MELATONIN 5 MG TABLETS PO PRN (22:11)
[2018-01-22] MEDS ORDERED: METHADONE HCL 10 MG TABLET ONE (04:03)
[2018-01-22] MEDS ORDERED: METHADONE HCL 40 MG DISPERSABLE TABLET ONE (04:03)
[2018-01-22] MEDS: METHADONE 80 MG, METHADONE 20 MG PO SCH (06:10)
[2018-01-22] MEDS: NICOTINE POLACRILEX 4 MG GUM BUC PRN ×3 (08:29→21:43)
[2018-01-22] MEDS: PANTOPRAZOLE 20 MG TABLET (FP) PO SCH (10:10)
[2018-01-22] MEDS: SERTRALINE HCL 50 MG TABLET (FP) PO SCH (10:10)
[2018-01-22] MEDS: PRENATAL VITAMINS W/ FOLIC ACID TABLET (FP) PO SCH (10:10)
[2018-01-22] MEDS: DIVALPROEX SODIUM 500 MG TABLET E.C. PO SCH ×2 (10:10→21:42)
[2018-01-22] MEDS: hydrOXYzine PAMOATE 50 MG CAPSULE (FP) PO PRN (10:11)
[2018-01-22] MEDS ORDERED: HALOPERIDOL 5 MG TABLET (FP) PO PRN (15:59)
[2018-01-22] MEDS ORDERED: diphenhydrAMINE HCL 25 MG CAPSULE (FP) PO PRN (16:00)
--- NOTE | 2018-01-22 16:11 | PN ---
Psychiatric Progress Note Vital Signs: Vital Signs Period Temp Pulse Resp BP Sys/Newsome Pulse Ox Last 24 Hr 97.4 F 64-72 -18 103-129/66-71 Date of Session: 01/22/18 Chief Complaint:: yonatan hearing voices at time,talking about me,teasing me. HPI: patiet addressed Alcoho,Cannabis and Anxiolytic dependence comorbid with Bipolar disorder. Current Medications: Active Medications Generic Name Dose Route Start Last Admin Trade Name Freq PRN Reason Stop Dose Admin Acetaminophen 650 mg 01/10/18 17:17 01/19/18 10:24 Tylenol - PO 650 mg Q4H PRN Administration FEVER Al Hydroxide/Mg Hydroxide 30 ml 01/10/18 17:17 01/12/18 19:44 Mylanta Oral Suspension - PO 30 ml Q6H PRN Administration DYSPEPSIA Diphenhydramine HCl 25 mg 01/22/18 16:00 Benadryl - PO HS PRN INSOMNIA Divalproex Sodium 500 mg 01/11/18 11:30 01/22/18 10:10 Depakote - PO 500 mg BID SENDY Administration Eucalyptus/Menthol/Phenol/Sorbitol 1 each 01/10/18 17:17 01/18/18 21:33 Cepastat Lozenge - MM 1 each Q4H PRN Administration SORE THROAT Guaifenesin 10 ml 01/10/18 17:17 01/18/18 10:39 Robitussin Dm - PO 10 ml Q6H PRN Administration COUGH Haloperidol 5 mg 01/22/18 15:59 Haldol - PO TID PRN AGITATION Hydroxyzine Pamoate 50 mg 01/13/18 12:52 01/22/18 10:11 Vistaril - PO 50 mg Q4H PRN Administration ANXIETY Ibuprofen 400 mg 01/10/18 17:17 01/13/18 10:50 Motrin - PO 400 mg Q6H PRN Administration Pain level 4-6 Loperamide HCl 4 mg 01/10/18 17:17 Imodium - PO Q6H PRN DIARRHEA Magnesium Citrate 300 ml 01/10/18 17:17 Citroma - PO Q48H PRN CONSTIPATION Magnesium Hydroxide 30 ml 01/10/18 17:17 Milk Of Magnesia - PO DAILY PRN CONSTIPATION Melatonin 5 mg 01/10/18 22:00 01/21/18 22:11 Melatonin PO 5 mg HS PRN Administration INSOMNIA Methadone HCl 80 mg/ Methadone 100 mg 01/18/18 06:00 01/22/18 06:10 HCl 20 mg PO 01/24/18 05:59 100 mg DAILY@0600 SENDY Administration Nicotine Polacrilex 4 mg 01/10/18 17:19 01/22/18 12:32 Nicorette Gum - BUC 4 mg Q2H PRN Administration NICOTINE REPLACEMENT RX Pantoprazole Sodium 20 mg 01/17/18 13:30 01/22/18 10:10 Protonix - PO 20 mg DAILY SENDY Administration Multivit/Folic Acid/Iron 1 tab 01/11/18 10:00 01/22/18 10:10 Vitamins (Sjr) - PO 1 tab DAILY SENDY Administration Pseudoephedrine/Triprolidine 1 combo 01/10/18 17:17 01/21/18 22:12 Actifed - PO 1 combo TID PRN Administration NASAL CONGESTION Quetiapine Fumarate 50 mg 01/22/18 22:00 Seroquel - PO HS SENDY Sertraline HCl 50 mg 01/11/18 11:30 01/22/18 10:10 Zoloft - PO 50 mg DAILY SENDY Administration Thiamine HCl 100 mg 01/10/18 22:00 01/21/18 22:10 Vitamin B1 - PO 100 mg HS SENDY Administration Current Side Effect: No Lab tests ordered: No Lab tests reviewed: Yes Provider note:: Chart was revuewed, notes appreciated.Met with the epatient who reorts auditory hallucinations(noise,voices talking about himcritisizing him).He is also reporting poor sleep pattern(waking up every 2 hours).properties of Seroquel and Haldol has been discussed with the patient including side effects,benefits and dose adjustment.SEroquel 50 mg po hs will be started tonight,Haldol 5 mg po tid prn will be ordered along with Benadryl. Supportive therapy,psychoeducation provided. Mental Status Exam - Mental Status Exam Alert and Oriented to: Time, Place, Person Cognitive Function: Grossly Intact Patient Appearance: Well Groomed Mood: Sad, Anxious Affect: Labile Patient Behavior: Appropriate, Cooperative Speech Pattern: Clear Voice Loudness: Normal Thought Process: Goal Oriented Hallucinations: Auditory Suicidal Ideation: Denies Homicidal Ideation: Denies Insight/Judgement: Fair Sleep: Difficulty falling asleep Appetite: Good Muscle strength/Tone: Normal Gait/Station: Normal Psychiatric Treatment Plan - Problem List (1) Cannabis dependence Current Visit: Yes (2) Sedative hypnotic or anxiolytic dependence Current Visit: Yes (3) Bipolar disorder Current Visit: Yes (4) Nicotine dependence Current Visit: Yes (5) PTSD (post-traumatic stress disorder) Current Visit: Yes (6) Alcohol dependence Current Visit: No
[2018-01-22] MEDS: THIAMINE HCL 100 MG TABLET (FP) PO SCH (21:42)
[2018-01-22] MEDS: QUEtiapine FUMARATE 50 MG TABLET PO SCH (21:42)
[2018-01-23] MEDS: P-EPHED 60MG/TRIPROLIDI 2.5MG TABLET PO PRN ×3 (00:24→23:39)
[2018-01-23] MEDS: hydrOXYzine PAMOATE 50 MG CAPSULE (FP) PO PRN ×2 (00:24→10:11)
[2018-01-23] MEDS ORDERED: METHADONE HCL 40 MG DISPERSABLE TABLET ONE (04:06)
[2018-01-23] MEDS ORDERED: METHADONE HCL 10 MG TABLET ONE (04:06)
[2018-01-23] MEDS: METHADONE 80 MG, METHADONE 20 MG PO SCH (06:14)
[2018-01-23] MEDS: guaiFENesin/D-METHORPHAN HB 10 ML UNIT-DOSE CUPS PO PRN ×2 (06:16→22:07)
[2018-01-23 06:57] VITALS: TEMP 97.2
[2018-01-23] MEDS: NICOTINE POLACRILEX 4 MG GUM BUC PRN ×2 (10:11→22:07)
[2018-01-23] MEDS: PANTOPRAZOLE 20 MG TABLET (FP) PO SCH (10:11)
[2018-01-23] MEDS: DIVALPROEX SODIUM 500 MG TABLET E.C. PO SCH ×2 (10:11→22:05)
[2018-01-23] MEDS: PRENATAL VITAMINS W/ FOLIC ACID TABLET (FP) PO SCH (10:11)
[2018-01-23] MEDS: SERTRALINE HCL 50 MG TABLET (FP) PO SCH (10:11)
[2018-01-23] MEDS: QUEtiapine FUMARATE 50 MG TABLET PO SCH (22:05)
[2018-01-23] MEDS: MELATONIN 5 MG TABLETS PO PRN (22:05)
[2018-01-23] MEDS: THIAMINE HCL 100 MG TABLET (FP) PO SCH (22:05)
[2018-01-24] MEDS ORDERED: METHADONE HCL 10 MG TABLET ONE (05:52)
[2018-01-24] MEDS ORDERED: METHADONE HCL 40 MG DISPERSABLE TABLET ONE (05:52)
[2018-01-24] MEDS ORDERED: METHADONE 80 MG, METHADONE 20 MG PO SCH (06:00)
[2018-01-24 06:52] VITALS: BP 113/69; PULSE 86
--- NOTE | 2018-01-24 08:23 | PN ---
Psychiatric Progress Note Vital Signs: Vital Signs Period Temp Pulse Resp BP Sys/Newsome Pulse Ox Last 24 Hr 97.2 F 86 18-18 113/69 Date of Session: 01/24/18 Chief Complaint:: "Discharge" HPI: Patient admitted to [facility] for alcohol, cocaine, and opiate dependence. ROS: Significant for history of childhood ashtma Current Medications: Active Medications Generic Name Dose Route Start Last Admin Trade Name Freq PRN Reason Stop Dose Admin Acetaminophen 650 mg 01/10/18 17:17 01/19/18 10:24 Tylenol - PO 650 mg Q4H PRN Administration FEVER Al Hydroxide/Mg Hydroxide 30 ml 01/10/18 17:17 01/12/18 19:44 Mylanta Oral Suspension - PO 30 ml Q6H PRN Administration DYSPEPSIA Diphenhydramine HCl 25 mg 01/22/18 16:00 Benadryl - PO HS PRN INSOMNIA Divalproex Sodium 500 mg 01/11/18 11:30 01/23/18 22:05 Depakote - PO 500 mg BID SENDY Administration Eucalyptus/Menthol/Phenol/Sorbitol 1 each 01/10/18 17:17 01/18/18 21:33 Cepastat Lozenge - MM 1 each Q4H PRN Administration SORE THROAT Guaifenesin 10 ml 01/10/18 17:17 01/23/18 22:07 Robitussin Dm - PO 10 ml Q6H PRN Administration COUGH Haloperidol 5 mg 01/22/18 15:59 01/23/18 16:54 Haldol - PO 5 mg TID PRN Administration AGITATION Hydroxyzine Pamoate 50 mg 01/13/18 12:52 01/23/18 10:11 Vistaril - PO 50 mg Q4H PRN Administration ANXIETY Ibuprofen 400 mg 01/10/18 17:17 01/13/18 10:50 Motrin - PO 400 mg Q6H PRN Administration Pain level 4-6 Loperamide HCl 4 mg 01/10/18 17:17 Imodium - PO Q6H PRN DIARRHEA Magnesium Citrate 300 ml 01/10/18 17:17 Citroma - PO Q48H PRN CONSTIPATION Magnesium Hydroxide 30 ml 01/10/18 17:17 Milk Of Magnesia - PO DAILY PRN CONSTIPATION Melatonin 5 mg 01/10/18 22:00 01/23/18 22:05 Melatonin PO 5 mg HS PRN Administration INSOMNIA Methadone HCl 80 mg/ Methadone 100 mg 01/24/18 06:00 01/24/18 06:27 HCl 20 mg PO 01/30/18 05:59 100 mg DAILY@0600 SENDY Administration Nicotine Polacrilex 4 mg 01/10/18 17:19 01/23/18 22:07 Nicorette Gum - BUC 4 mg Q2H PRN Administration NICOTINE REPLACEMENT RX Pantoprazole Sodium 20 mg 01/17/18 13:30 01/23/18 10:11 Protonix - PO 20 mg DAILY SENDY Administration Multivit/Folic Acid/Iron 1 tab 01/11/18 10:00 01/23/18 10:11 Vitamins (Sjr) - PO 1 tab DAILY SENDY Administration Pseudoephedrine/Triprolidine 1 combo 01/10/18 17:17 01/23/18 23:39 Actifed - PO 1 combo TID PRN Administration NASAL CONGESTION Quetiapine Fumarate 50 mg 01/22/18 22:00 01/23/18 22:05 Seroquel - PO 50 mg HS SENDY Administration Sertraline HCl 50 mg 01/11/18 11:30 01/23/18 10:11 Zoloft - PO 50 mg DAILY SENDY Administration Thiamine HCl 100 mg 01/10/18 22:00 01/23/18 22:05 Vitamin B1 - PO 100 mg HS SENDY Administration Medication(s) Change(s): No. Current Side Effect: No Lab tests ordered: No Lab tests reviewed: Yes Provider note:: Patient able to complete [facility] rehabilitation on 01/24/18. Patient has met his treatment goals and reports satisfaction with the rehabilition program. The patient was referred for outpatient mental treatment at [facility]. He has an intake appointment on 01/28/18 @12:00. Patient reports the importance of better structure in his life and states he will utilize the information he learned in the program by using it when he feels pressured to use substances again. A 30 day prescription of Zoloft 50mg + Depakote 500mg HS + Seroquel 50mg + Vistaril 50mg (prn) will be electronically sent to [facility] at [address] [place] [address]. Patient is stable for discharge on 01/24/18. Total face to face time:: 35 Mental Status Exam - Mental Status Exam Alert and Oriented to: Time, Place, Person Cognitive Function: Good Patient Appearance: Well Groomed Mood: Euthymic Affect: Appropriate Patient Behavior: Appropriate, Cooperative Speech Pattern: Clear, Appropriate Voice Loudness: Normal Thought Process: Intact, Goal Oriented Thought Disorder: Not Present Hallucinations: Denies Suicidal Ideation: Denies Homicidal Ideation: Denies Insight/Judgement: Good Sleep: Well Appetite: Good Muscle strength/Tone: Normal Gait/Station: Normal Psychiatric Treatment Plan - Problem List (1) PTSD (post-traumatic stress disorder) Current Visit: Yes (2) Alcohol dependence Current Visit: No (3) Cocaine dependence Current Visit: No Qualifiers: Substance use status: uncomplicated Qualified Code(s): F14.20 - Cocaine dependence, uncomplicated (4) Cannabis dependence Current Visit: Yes (5) Sedative hypnotic or anxiolytic dependence Current Visit: Yes (6) Bipolar disorder Current Visit: Yes (7) Nicotine dependence Current Visit: Yes
[2018-01-24] MEDS: DIVALPROEX SODIUM 500 MG TABLET E.C. PO SCH (09:14)
[2018-01-24] MEDS: SERTRALINE HCL 50 MG TABLET (FP) PO SCH (09:14)
[2018-01-24] MEDS: PANTOPRAZOLE 20 MG TABLET (FP) PO SCH (09:14)
[2018-01-24] MEDS: PRENATAL VITAMINS W/ FOLIC ACID TABLET (FP) PO SCH (09:14)
[2018-01-24] MEDS: hydrOXYzine PAMOATE 50 MG CAPSULE (FP) PO PRN (09:15)
[2018-01-24] MEDS: NICOTINE POLACRILEX 4 MG GUM BUC PRN (09:45)
== END 2018-01-24 10:15 | disposition home or self-care (01) | DRG 772 ==
LOC: YASAS 13:41 → Y3W 17:40
PROVIDERS: ADMIT Psychiatry & Neurology Psychiatry; ATTEND Psychiatry & Neurology Psychiatry
PROC: HZ42ZZZ Group Counseling for Substance Abuse Treatment, Cognitive-Behavioral (ICD-10-PCS; principal; 2018-01-10)
DX: F10.20 Alcohol dependence, uncomplicated (principal); F11.20 Opioid dependence, uncomplicated; F13.20 Sedative, hypnotic or anxiolytic dependence, uncomplicated; F14.20 Cocaine dependence, uncomplicated; F12.20 Cannabis dependence, uncomplicated; F17.210 Nicotine dependence, cigarettes, uncomplicated; F43.10 Post-traumatic stress disorder, unspecified; F31.9 Bipolar disorder, unspecified; F19.24 Other psychoactive substance dependence with psychoactive substance-induced mood disorder; F41.8 Other specified anxiety disorders; Z88.0 Allergy status to penicillin
CPT/HCPCS: 36415; 80053; 80164; 81003; 85027; 86593; 93005; 93010

== ENCOUNTER 2018-04-09 14:22 | Inpatient (IN) | payer OTHER ==
[2018-04-09 15:17] VITALS: BMI 23.7
--- NOTE | 2018-04-09 17:42 | HP ---
CIWA Score Nausea/Vomitin-Mild Nausea/No Vomiting Muscle Tremors: 3 Anxiety: 3 Agitation: 2 Paroxysmal Sweats: 1-Minimal Palms Moist Orientation: 0-Oriented Tacttile Disturbances: 0-None Auditory Disturbances: 0-None Visual Disturbances: 0-None Headache: 2-Mild CIWA-Ar Total Score: 12 - Admission Criteria OASAS Guidelines: Admission for Medically Managed Detox: Requires at least one of the followin. CIWA greater than 12 2. Seizures within the past 24 hours 3. Delirium tremens within the past 24 hours 4. Hallucinations within the past 24 hours 5. Acute intervention needed for co occurring medical disorder 6. Acute intervention needed for co occurring psychiatric disorder 7. Severe withdrawal that cannot be handled at a lower level of care (continued vomiting, continued diarrhea, abnormal vital signs) requiring intravenous medication and/or fluids 8. Patient presents the following: CIWA greater than 12 Admission Criteria Met: Admission criteria met Admission ROS BHS - HPI Chief Complaint: detox from alcohol. On methadone 100mg MAT 37 yo with no medical problems, MH- anxiety/depression/panic attacks on medications, here b/c methadone program and legally was asked him to come for detox. h/o HCV- pt had treatment- no VL alcohol- 6 pack of beer, and a couple of pints of alcohol, no seizures, DT's K2- 5-10 blunts/day Benzo- buys from street- 1-2 of any benzo pill cocaine- 1-2 bags- inject heroin- 1-2 bags- injection- pt does not have narcan kit. DUR- librium #8 pills on 04/03/18- pt claims no knowledge Utox- jaxon, MTD, opiates and benzo, VALERIA- neg Allergies/Adverse Reactions: Allergies Allergy/AdvReac Type Severity Reaction Status Date / Time Penicillins Allergy Severe Rash Verified 04/09/18 16:53 Exam Limitations: No Limitations - Ebola screening Have you traveled outside of the country in the last 21 days: No Have you had contact with anyone from an Ebola affected area: No Have you been sick,other than usual withdrawal symptoms: No Do you have a fever: No Patient History - Patient Medical History Hx Anemia: No Hx Asthma: No Hx Chronic Obstructive Pulmonary Disease (COPD): No Hx Cancer: No Hx Cardiac Disorders: No Hx Congestive Heart Failure: No Hx Hypertension: No Hx Hypercholesterolemia: No Hx Pacemaker: No HX Cerebrovascular Accident: No Hx Seizures: No Hx Dementia: No Hx Diabetes: No Hx Gastrointestinal Disorders: No Hx Liver Disease: No Hx Genitourinary Disorders: No Hx Sexually Transmitted Disorders: No Hx Renal Disease (ESRD): No Hx Thyroid Disease: No Hx Human Immunodeficiency Virus (HIV): No (09/10 last negative) Hx Hepatitis C: No Hx Depression: Yes Hx Suicide Attempt: No Hx Bipolar Disorder: No Hx Schizophrenia: Yes - Patient Surgical History Past Surgical History: No Hx Neurologic Surgery: No Hx Cataract Extraction: No Hx Cardiac Surgery: No Hx Lung Surgery: No Hx Breast Surgery: No Hx Breast Biopsy: No Hx Abdominal Surgery: No Hx Appendectomy: No Hx Cholecystectomy: No Hx Genitourinary Surgery: No Hx Section: No Hx Orthopedic Surgery: No Anesthesia Reaction: No - PPD History Previous Implant?: Yes Documented Results: Negative w/proof Date: 11/21/17 Results: 0 mm - Smoking Cessation Smoking history: Current every day smoker Have you smoked in the past 12 months: Yes Aproximately how many cigarettes per day: 20 Cigars Per Day: 0 Hx Chewing Tobacco Use: No Initiated information on smoking cessation: Yes 'Breaking Loose' booklet given: 04/09/18 - Substances Abused Alcohol Route: Oral Frequency: Daily Amount used: LIQUOR- 3 PINTS, BEER- 1 SIX PACKS Age of first use: 12 Date of Last Use: 04/09/18 Benzodiazepine (Klonopin) Route: Oral Frequency: Daily Amount used: LIQUOR- 3 PINTS, BEER- 1 SIX PACKS Age of first use: 12 Date of Last Use: 04/09/18 cocaine Route: Injection Family Disease History - Family Disease History Family Disease History: Diabetes: Mother, Other: Father (hld) Admission Physical Exam BHS - Vital Signs Vital Signs: Vital Signs - 24 hr 04/09/18 15:13 Temperature 99 F Pulse Rate 56 L Respiratory 18 Rate Blood Pressure 121/71 - Physical General Appearance: Yes: Within Normal Limits HEENTM: Yes: Within Normal Limits Respiratory: Yes: Within Normal Limits Neck: Yes: Within Normal Limits Cardiology: Yes: Within Normal Limits Abdominal: Yes: Within Normal Limits Genitourinary: Yes: Within Normal Limits Back: Yes: Within Normal Limits Musculoskeletal: Yes: Within Normal Limits Extremities: Yes: Within Normal Limits Neurological: Yes: Within Normal Limits Integumentary: Yes: Track Jason (no evidence of infections) BHS Breath Alcohol Content Breath Alcohol Content: 0 Urine Drug Screen - Results Drug Screen Negative: No Urine Drug Screen Results: JAXON-Cocaine, OPI-Opiates, BZO-Benzodiazepines, MTD- Methadone Inpatient Rehab Admission - Rehab Decision to Admit Inpatient rehab admission?: No
[2018-04-09] MEDS ORDERED: P-EPHED 60MG/TRIPROLIDI 2.5MG TABLET PO PRN (17:48)
[2018-04-09] MEDS ORDERED: chlordiazePOXIDE HCL 25 MG CAPSULE PO PRN (17:48)
[2018-04-09] MEDS ORDERED: ACETAMINOPHEN 325 MG TABLET (FP) PO PRN (17:48)
[2018-04-09] MEDS ORDERED: MAGNESIUM HYDROX 2400MG/30ML ORAL SUSPENSION 30 ML CUP PO PRN (17:48)
[2018-04-09] MEDS ORDERED: MAG HYDROX/AL HYDROX/SIMETH 30 ML UNIT-DOSE CUP PO PRN (17:48)
[2018-04-09] MEDS ORDERED: guaiFENesin/D-METHORPHAN HB 10 ML UNIT-DOSE CUPS PO PRN (17:48)
[2018-04-09] MEDS ORDERED: MENTHOL/PHENOL 1 EACH UD MM PRN (17:48)
[2018-04-09] MEDS ORDERED: LOPERAMIDE HCL 2 MG CAPSULE PO PRN (17:48)
[2018-04-09] MEDS ORDERED: IBUPROFEN 400 MG TABLET (FP) PO PRN (17:48)
[2018-04-09] MEDS ORDERED: MAGNESIUM CITRATE 300 ML BOTTLE PO PRN (17:48)
[2018-04-09] MEDS ORDERED: hydrOXYzine PAMOATE 25 MG CAPSULE (FP) PO PRN (17:48)
[2018-04-09] MEDS: NICOTINE POLACRILEX 4 MG GUM BC PRN (20:22)
[2018-04-09] MEDS ORDERED: QUEtiapine FUMARATE 50 MG TABLET PO SCH (22:00)
[2018-04-09] MEDS ORDERED: MELATONIN 5 MG TABLETS PO PRN (22:00)
[2018-04-09] MEDS: THIAMINE HCL 100 MG TABLET (FP) PO SCH (22:13)
[2018-04-09] MEDS: chlordiazePOXIDE HCL 25 MG CAPSULE PO SCH (22:14)
[2018-04-09] MEDS: DIVALPROEX SODIUM 500 MG TABLET E.C. PO SCH (22:14)
[2018-04-09 23:42] LABS: URINE APPEARANCE CLEAR; URINE BILIRUBIN NEGATIVE (<2.0 mg/dL); URINE COLOR YELLOW; URINE GLUCOSE (UA) NEGATIVE (NEGATIVE); URINE KETONE NEGATIVE (NEGATIVE); URINE LEUK ESTERASE NEGATIVE (NEGATIVE); URINE NITRITE NEGATIVE (NEGATIVE); URINE PROTEIN NEGATIVE (NEGATIVE)
[2018-04-10] MEDS: chlordiazePOXIDE HCL 25 MG CAPSULE PO SCH ×4 (05:30→22:16)
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
[2018-04-10] MEDS ORDERED: METHADONE HCL 10 MG TABLET PO SCH (08:30)
[2018-04-10] MEDS ORDERED: METHADONE HCL 10 MG TABLET ONE (09:04)
[2018-04-10] MEDS ORDERED: METHADONE HCL 40 MG DISPERSABLE TABLET ONE (09:05)
[2018-04-10] MEDS: METHADONE 80 MG, METHADONE 20 MG PO SCH (09:10)
[2018-04-10] MEDS ORDERED: SERTRALINE HCL 50 MG TABLET (FP) PO SCH (10:00)
[2018-04-10] MEDS: PRENATAL VITAMINS W/ FOLIC ACID TABLET (FP) PO SCH (10:14)
[2018-04-10] MEDS: DIVALPROEX SODIUM 500 MG TABLET E.C. PO SCH (10:14)
[2018-04-10] MEDS ORDERED: SERTRALINE HCL 50 MG TABLET (FP) PO ONE (10:16)
[2018-04-10] MEDS: NICOTINE POLACRILEX 4 MG GUM BC PRN ×2 (10:38→12:42)
[2018-04-10 10:58] LABS: HEMATOCRIT 40.7 % (35.4-49); HEMOGLOBIN 13.8 GM/dL (11.7-16.9); MCH 30.2 pg (25.7-33.7); MCHC 33.9 g/dl (32.0-35.9); MEAN CELL VOLUME 89.2 fl (80-96); MEAN PLT VOLUME 9.3 fl (7.5-11.1); PLATELET COUNT 182 K/MM3 (134-434); RBC 4.57 M/mm3 (4.00-5.60); RDW 14.2 % (11.9-15.9); WHITE BLOOD COUNT 6.5 K/mm3 (4.0-10.0)
[2018-04-10 11:03] LABS: ALBUMIN 3.7 g/dl (3.4-5.0); ALK PHOS 119 U/L (45-117); ANION GAP 8 MMOL/L (8-16); BLOOD UREA NITROGEN 7 mg/dL (7-18); CALCIUM 8.4 mg/dL (8.5-10.1); CHLORIDE 99 mmol/L (98-107); CO2 28 mmol/L (21-32); CREATININE 0.8 mg/dL (0.55-1.3); GLUCOSE,RANDOM 117 mg/dL (74-106); POTASSIUM 3.7 mmol/L (3.5-5.1); SGOT/AST 844 U/L (15-37); SGPT/ALT 867 U/L (13-61); SODIUM 135 mmol/L (136-145); TOT PROT 7.2 g/dl (6.4-8.2)
[2018-04-10] MEDS: hydrOXYzine PAMOATE 50 MG CAPSULE (FP) PO PRN ×2 (12:42→22:21)
[2018-04-10] MEDS: DIVALPROEX SODIUM 250 MG TABLET E.C. PO SCH ×2 (14:01→22:16)
--- NOTE | 2018-04-10 16:00 | PN ---
S CIWA - CIWA Score Nausea/Vomitin-No Nausea/No Vomiting Muscle Tremors: 3 Anxiety: 1-Mildly Anxious Agitation: 2 Paroxysmal Sweats: 1-Minimal Palms Moist Orientation: 1-Uncertain about Date Tacttile Disturbances: 0-None Auditory Disturbances: 0-None Visual Disturbances: 0-None Headache: 2-Mild CIWA-Ar Total Score: 10 S Progress Note (SOAP) Subjective: tremor anxiety sweating trouble sleep through the night Objective: 04/10/18 15:58 Vital Signs Temperature 97.0 F L 04/10/18 13:55 Pulse Rate 64 04/10/18 13:55 Respiratory Rate 18 04/10/18 13:55 Blood Pressure 105/67 04/10/18 13:55 O2 Sat by Pulse Oximetry (%) Laboratory Last Values WBC 6.5 K/mm3 (4.0-10.0) 04/10/18 07:00 RBC 4.57 M/mm3 (4.00-5.60) 04/10/18 07:00 Hgb 13.8 GM/dL (11.7-16.9) 04/10/18 07:00 Hct 40.7 % (35.4-49) 04/10/18 07:00 MCV 89.2 fl (80-96) 04/10/18 07:00 MCH 30.2 pg (25.7-33.7) 04/10/18 07:00 MCHC 33.9 g/dl (32.0-35.9) 04/10/18 07:00 RDW 14.2 % (11.9-15.9) 04/10/18 07:00 Plt Count 182 K/MM3 (134-434) D 04/10/18 07:00 MPV 9.3 fl (7.5-11.1) 04/10/18 07:00 Sodium 135 mmol/L (136-145) L 04/10/18 07:00 Potassium 3.7 mmol/L (3.5-5.1) 04/10/18 07:00 Chloride 99 mmol/L (98-107) 04/10/18 07:00 Carbon Dioxide 28 mmol/L (21-32) 04/10/18 07:00 Anion Gap 8 MMOL/L (8-16) 04/10/18 07:00 BUN 7 mg/dL (7-18) 04/10/18 07:00 Creatinine 0.8 mg/dL (0.55-1.3) 04/10/18 07:00 Creat Clearance w eGFR > 60 (>60) 04/10/18 07:00 Random Glucose 117 mg/dL (74-106) H 04/10/18 07:00 Calcium 8.4 mg/dL (8.5-10.1) L 04/10/18 07:00 Total Bilirubin 1.0 mg/dL (0.2-1) 04/10/18 07:00 AST 844 U/L (15-37) H 04/10/18 07:00 ALT 867 U/L (13-61) H 04/10/18 07:00 Alkaline Phosphatase 119 U/L (45-117) H 04/10/18 07:00 Total Protein 7.2 g/dl (6.4-8.2) 04/10/18 07:00 Albumin 3.7 g/dl (3.4-5.0) 04/10/18 07:00 Urine Color Yellow 04/09/18 22:45 Urine Appearance Clear 04/09/18 22:45 Urine pH 7.0 (5.0-8.0) D 04/09/18 22:45 Ur Specific [place] 1.012 (1.010-1.035) 04/09/18 22:45 Urine Protein Negative (NEGATIVE) 04/09/18 22:45 Urine Glucose (UA) Negative (NEGATIVE) 04/09/18 22:45 Urine Ketones Negative (NEGATIVE) 04/09/18 22:45 Urine Blood Negative (NEGATIVE) 04/09/18 22:45 Urine Nitrite Negative (NEGATIVE) 04/09/18 22:45 Urine Bilirubin Negative (<2.0 mg/dL) 04/09/18 22:45 Urine Urobilinogen 2.0 mg/dL (0.2-1.0) 04/09/18 22:45 Ur Leukocyte Esterase Negative (NEGATIVE) 04/09/18 22:45 Valproic Acid 47.8 ug/ml (50-100) L 04/10/18 10:50 RPR Titer Nonreactive (NONREACTIVE) 04/10/18 07:00 lab noted repeat ast alt ammonia level 04/10/18 16:04 Assessment: 04/10/18 16:04 withdrawal sx Plan: continue detox
[2018-04-10] MEDS ORDERED: QUEtiapine FUMARATE 300 MG TABLET PO SCH (22:00)
[2018-04-10] MEDS: THIAMINE HCL 100 MG TABLET (FP) PO SCH (22:16)
[2018-04-11] MEDS ORDERED: METHADONE HCL 40 MG DISPERSABLE TABLET ONE (04:51)
[2018-04-11] MEDS ORDERED: METHADONE HCL 10 MG TABLET ONE (04:51)
[2018-04-11] MEDS: METHADONE 80 MG, METHADONE 20 MG PO SCH (05:12)
[2018-04-11] MEDS: chlordiazePOXIDE HCL 25 MG CAPSULE PO SCH ×2 (05:13→10:18)
[2018-04-11] MEDS ORDERED: ONDANSETRON *ODT* 4 MG TABLET SL PRN (07:49)
[2018-04-11] MEDS ORDERED: SERTRALINE HCL 50 MG TABLET (FP) PO SCH (10:00)
[2018-04-11] MEDS: DIVALPROEX SODIUM 250 MG TABLET E.C. PO SCH (10:17)
[2018-04-11] MEDS: PRENATAL VITAMINS W/ FOLIC ACID TABLET (FP) PO SCH (10:17)
[2018-04-11 10:19] VITALS: BP 111/67; PULSE 68; TEMP 98.9
[2018-04-11 11:02] LABS: INR 1.23 (0.83-1.09); PROTHROMBIN TIME (PATIENT) 14.5 SEC (9.7-13.0)
[2018-04-11 12:32] LABS: SGOT/AST 1611 U/L (15-37); SGPT/ALT 1879 U/L (13-61)
--- NOTE | 2018-04-11 16:16 | PN ---
S CIWA - CIWA Score Nausea/Vomitin Muscle Tremors: None Anxiety: 4-Mod. Anxious/Guarded Agitation: 3 Paroxysmal Sweats: 3 Orientation: 2-Disoriented Date<2 days Tacttile Disturbances: 2-Mild Itch/Numbness/Burn Auditory Disturbances: 0-None Visual Disturbances: 0-None Headache: 0-None Present CIWA-Ar Total Score: 17 BHS Progress Note (SOAP) Subjective: Interrupted sleep, anxious, Sweating, Nausea, Body Aches, H/A, Poor Appetite. Objective: PATIENT A & O X 2 (UNCERTAIN ABOUT CURRENT DAY / DATE). PATIENT OBSERVED AMBULATING ON UNIT. IN NO ACUTE DISTRESS. 04/11/18 16:13 Vital Signs Temperature 98.9 F 04/11/18 10:18 Pulse Rate 68 04/11/18 10:18 Respiratory Rate 18 04/11/18 10:18 Blood Pressure 111/67 04/11/18 10:18 O2 Sat by Pulse Oximetry (%) Laboratory Tests 04/09/18 04/10/18 04/10/18 22:45 07:00 07:00 WBC 6.5 RBC 4.57 Hgb 13.8 Hct 40.7 MCV 89.2 MCH 30.2 MCHC 33.9 RDW 14.2 Plt Count 182 D MPV 9.3 PT with INR INR Sodium 135 L Potassium 3.7 Chloride 99 Carbon Dioxide 28 Anion Gap 8 BUN 7 Creatinine 0.8 Creat Clearance w eGFR > 60 Random Glucose 117 H Calcium 8.4 L Total Bilirubin 1.0 AST 844 H ALT 867 H Alkaline Phosphatase 119 H Ammonia Total Protein 7.2 Albumin 3.7 Urine Color Yellow Urine Appearance Clear Urine pH 7.0 D Ur Specific [place] 1.012 Urine Protein Negative Urine Glucose (UA) Negative Urine Ketones Negative Urine Blood Negative Urine Nitrite Negative Urine Bilirubin Negative Urine Urobilinogen 2.0 Ur Leukocyte Esterase Negative Valproic Acid RPR Titer 04/10/18 04/10/18 04/11/18 07:00 10:50 07:00 WBC RBC Hgb Hct MCV MCH MCHC RDW Plt Count MPV PT with INR INR Sodium Potassium Chloride Carbon Dioxide Anion Gap BUN Creatinine Creat Clearance w eGFR Random Glucose Calcium Total Bilirubin AST 1611 H ALT 1879 H Alkaline Phosphatase Ammonia Total Protein Albumin Urine Color Urine Appearance Urine pH Ur Specific [place] Urine Protein Urine Glucose (UA) Urine Ketones Urine Blood Urine Nitrite Urine Bilirubin Urine Urobilinogen Ur Leukocyte Esterase Valproic Acid 47.8 L RPR Titer Nonreactive 04/11/18 04/11/18 07:00 07:00 WBC RBC Hgb Hct MCV MCH MCHC RDW Plt Count MPV PT with INR 14.50 H INR 1.23 H Sodium Potassium Chloride Carbon Dioxide Anion Gap BUN Creatinine Creat Clearance w eGFR Random Glucose Calcium Total Bilirubin AST ALT Alkaline Phosphatase Ammonia 110.60 H Total Protein Albumin Urine Color Urine Appearance Urine pH Ur Specific [place] Urine Protein Urine Glucose (UA) Urine Ketones Urine Blood Urine Nitrite Urine Bilirubin Urine Urobilinogen Ur Leukocyte Esterase Valproic Acid RPR Titer LABS NOTED. Assessment: 04/11/18 16:14 WITHDRAWAL SYMPTOMS. HYPERAMMONEMIA. ELEVATED LIVER ENZYMES. 04/11/18 16:15 Plan: CONTINUE DETOX. 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 HOWEVER, PATIENT ELECTED TO LEAVE DETOX UNIT AGAINST MEDICAL ADVICE. SEE FOLLOWING [facility] DETOX DISCHARGE SUMMARY.
--- NOTE | 2018-04-11 16:18 | DS ---
[facility] Detox Discharge Summary Admission Date: 04/09/18 Discharge Date: 04/11/18 - History Present History: Alcohol Dependence, Cocaine Dependence, Opioid Dependence, Sedative Dependence, MMTP Additional Comments: PATIENT DOES NOT WISH TO REMAIN TO COMPLETE DETOX REGIMEN. PATIENT REPORTS CONCERN OVER FACT THAT HE IS SCHEDULED TO BE DISCHARGED FROM DETOX UNIT ON 04/11/2018, ALTHOUGH HIS M.M.T.P. PROGRAM ([facility] M.M.T.P. PROGRAM) WILL BE CLOSE DON 04/14/2018 DUE TO HOLIDAY. PATIENT OFFERED OPPORTUNITY TO BE DISCHARGED ON 04/14/2018 SO TO BE ABLE TO RETURN TO M.M.T.P. PROGRAM ON 04/15/2018. HOWEVER, PATIENT DECLINES TO DO SO AND IS STILL ELECTING TO LEAVE DETOX UNIT AGAINST MEDICAL ADVICE. RISKS OF LEAVING DETOX UNIT AGAINST MEDICAL ADVICE AND PRIOR TO COMPLETION OF DETOX REGIMEN EXPLAINED TO PATIENT. PATIENT ADVISED TO GO IMMEDIATELY TO NEAREST ER SHOULD ANY INTOLERABLE DETOX SYMPTOMS DEVELOP AT ANY TIME. 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 PATIENT VERBALIZED UNDERSTANDING OF ALL INFORMATION / RECOMMENDATIONS PRESENTED TO HIM PRIOR TO DEPARTURE FROM DETOX UNIT. PATIENT DECLINED OFFER OF MEDICATION PRESCRIPTION FOR HOME MEDICATION AT TIME OF DISCHARGE FROM DETOX, NOTING THAT HE CURRENTLY HAS ADEQUATE SUPPLIES OF ALL PRESCRIBED HOME MEDICATIONS AT HOME. NOTE: RESULTS OF REPEAT LIVER ENZYMES VALUES AND AMMONIA LEVEL WERE NOT AVAILABLE FOR PATIENT UNTIL AFTER HE HAD ALREADY LEFT DETOX UNIT. Pertinent Past History: History of P.T.S.D., History of Schizophrenia, History of Depression, Insomnia, Nicotine Dependence, M.M.T.P. - Physical Exam Results Vital Signs: Vital Signs Temperature 98.9 F 04/11/18 10:18 Pulse Rate 68 04/11/18 10:18 Respiratory Rate 18 04/11/18 10:18 Blood Pressure 111/67 04/11/18 10:18 O2 Sat by Pulse Oximetry (%) Pertinent Admission Physical Exam Findings: WITHDRAWAL SYMPTOMS. Laboratory Tests 04/09/18 04/10/18 04/10/18 22:45 07:00 07:00 WBC 6.5 RBC 4.57 Hgb 13.8 Hct 40.7 MCV 89.2 MCH 30.2 MCHC 33.9 RDW 14.2 Plt Count 182 D MPV 9.3 PT with INR INR Sodium 135 L Potassium 3.7 Chloride 99 Carbon Dioxide 28 Anion Gap 8 BUN 7 Creatinine 0.8 Creat Clearance w eGFR > 60 Random Glucose 117 H Calcium 8.4 L Total Bilirubin 1.0 AST 844 H ALT 867 H Alkaline Phosphatase 119 H Ammonia Total Protein 7.2 Albumin 3.7 Urine Color Yellow Urine Appearance Clear Urine pH 7.0 D Ur Specific [place] 1.012 Urine Protein Negative Urine Glucose (UA) Negative Urine Ketones Negative Urine Blood Negative Urine Nitrite Negative Urine Bilirubin Negative Urine Urobilinogen 2.0 Ur Leukocyte Esterase Negative Valproic Acid RPR Titer 04/10/18 04/10/18 04/11/18 07:00 10:50 07:00 WBC RBC Hgb Hct MCV MCH MCHC RDW Plt Count MPV PT with INR INR Sodium Potassium Chloride Carbon Dioxide Anion Gap BUN Creatinine Creat Clearance w eGFR Random Glucose Calcium Total Bilirubin AST 1611 H ALT 1879 H Alkaline Phosphatase Ammonia Total Protein Albumin Urine Color Urine Appearance Urine pH Ur Specific [place] Urine Protein Urine Glucose (UA) Urine Ketones Urine Blood Urine Nitrite Urine Bilirubin Urine Urobilinogen Ur Leukocyte Esterase Valproic Acid 47.8 L RPR Titer Nonreactive 04/11/18 04/11/18 07:00 07:00 WBC RBC Hgb Hct MCV MCH MCHC RDW Plt Count MPV PT with INR 14.50 H INR 1.23 H Sodium Potassium Chloride Carbon Dioxide Anion Gap BUN Creatinine Creat Clearance w eGFR Random Glucose Calcium Total Bilirubin AST ALT Alkaline Phosphatase Ammonia 110.60 H Total Protein Albumin Urine Color Urine Appearance Urine pH Ur Specific [place] Urine Protein Urine Glucose (UA) Urine Ketones Urine Blood Urine Nitrite Urine Bilirubin Urine Urobilinogen Ur Leukocyte Esterase Valproic Acid RPR Titer LABS NOTED. - Treatment Hospital Course: Detoxed Safely - Medication Discharge Medications: Ambulatory Orders Divalproex [Depakote -] 250 mg PO BID 01/10/18 Quetiapine Fumarate [Seroquel -] 50 mg PO HS #30 tablet 01/24/18 Sertraline HCl [Zoloft -] 50 mg PO DAILY #30 tablet 01/24/18 hydrOXYzine PAMOATE [Vistaril -] 50 mg PO Q6H PRN #30 capsule 01/24/18 - Diagnosis (1) Alcohol dependence with withdrawal Status: Acute Qualifiers: Complication of substance-induced condition: uncomplicated Qualified Code(s ): F10.230 - Alcohol dependence with withdrawal, uncomplicated (2) Cocaine dependence Status: Acute Qualifiers: Substance use status: uncomplicated Qualified Code(s): F14.20 - Cocaine dependence, uncomplicated (3) Substance induced mood disorder Status: Acute (4) Substance-induced sleep disorder Status: Acute (5) Bipolar disorder Status: Chronic Qualifiers: Active/Remission status: remission status unspecified Qualified Code(s): F31.9 - Bipolar disorder, unspecified (6) Nicotine dependence Status: Chronic Qualifiers: Nicotine product type: cigarettes Substance use status: uncomplicated Qualified Code(s): F17.210 - Nicotine dependence, cigarettes, uncomplicated (7) Opioid dependence on agonist therapy Status: Chronic (8) PTSD (post-traumatic stress disorder) Status: Chronic (9) Sedative hypnotic or anxiolytic dependence Status: Acute - AMA Did Patient Leave Against Medical Advice: Yes (PATIENT DID NOT WISH TO REMAIN TO COMPLETE DETOX REGIMEN.)
[2018-04-11] MEDS ORDERED: chlordiazePOXIDE 5 MG CAPSULE PO SCH (23:00)
[2018-04-12] MEDS ORDERED: chlordiazePOXIDE HCL 10 MG CAPSULE PO SCH (23:00)
== END 2018-04-11 11:39 | disposition left against medical advice (07) | DRG 770 ==
LOC: YASAS 14:22 → Y3N 18:26
PROVIDERS: ADMIT Surgery; ATTEND Surgery
PROC: HZ2ZZZZ Detoxification Services for Substance Abuse Treatment (ICD-10-PCS; principal; 2018-04-09)
DX: F10.230 Alcohol dependence with withdrawal, uncomplicated (principal); F11.20 Opioid dependence, uncomplicated; F13.230 Sedative, hypnotic or anxiolytic dependence with withdrawal, uncomplicated; F14.20 Cocaine dependence, uncomplicated; F17.210 Nicotine dependence, cigarettes, uncomplicated; F19.24 Other psychoactive substance dependence with psychoactive substance-induced mood disorder; F19.282 Other psychoactive substance dependence with psychoactive substance-induced sleep disorder; F31.9 Bipolar disorder, unspecified; F43.10 Post-traumatic stress disorder, unspecified; E72.20 Disorder of urea cycle metabolism, unspecified; R94.5 Abnormal results of liver function studies; Z88.0 Allergy status to penicillin; Z59.0 Homelessness
CPT/HCPCS: 36415; 80053; 80164; 81003; 82140; 84450; 84460; 85027; 85610; 86593

== ENCOUNTER 2018-08-25 13:11 | Inpatient (IN) | payer OTHER ==
[2018-08-25 15:50] VITALS: BMI 21.0
--- NOTE | 2018-08-25 17:11 | HP ---
CIWA Score - Admission Criteria OASAS Guidelines: Admission for Medically Managed Detox: Requires at least one of the followin. CIWA greater than 12 2. Seizures within the past 24 hours 3. Delirium tremens within the past 24 hours 4. Hallucinations within the past 24 hours 5. Acute intervention needed for co occurring medical disorder 6. Acute intervention needed for co occurring psychiatric disorder 7. Severe withdrawal that cannot be handled at a lower level of care (continued vomiting, continued diarrhea, abnormal vital signs) requiring intravenous medication and/or fluids 8. Admission ROS S - HPI Allergies/Adverse Reactions: Allergies Allergy/AdvReac Type Severity Reaction Status Date / Time Penicillins Allergy Severe Rash Verified 08/25/18 15:37 - Ebola screening Have you traveled outside of the country in the last 21 days: No Have you had contact with anyone from an Ebola affected area: No Do you have a fever: No Patient History - Patient Medical History Hx Anemia: No Hx Asthma: No Hx Chronic Obstructive Pulmonary Disease (COPD): No Hx Cancer: No Hx Cardiac Disorders: No Hx Congestive Heart Failure: No Hx Hypertension: No Hx Hypercholesterolemia: No Hx Pacemaker: No HX Cerebrovascular Accident: No Hx Seizures: No Hx Dementia: No Hx Diabetes: No Hx Gastrointestinal Disorders: No Hx Liver Disease: No Hx Genitourinary Disorders: No Hx Sexually Transmitted Disorders: No Hx Renal Disease (ESRD): No Hx Thyroid Disease: No Hx Human Immunodeficiency Virus (HIV): No (09/10 last negative) Hx Hepatitis C: No Hx Depression: Yes Hx Suicide Attempt: No Hx Bipolar Disorder: No Hx Schizophrenia: Yes - Patient Surgical History Past Surgical History: No Hx Neurologic Surgery: No Hx Cataract Extraction: No Hx Cardiac Surgery: No Hx Lung Surgery: No Hx Breast Surgery: No Hx Breast Biopsy: No Hx Abdominal Surgery: No Hx Appendectomy: No Hx Cholecystectomy: No Hx Genitourinary Surgery: No Hx Section: No Hx Orthopedic Surgery: No Anesthesia Reaction: No - PPD History Date: 11/21/17 Results: 0 mm - Smoking Cessation Smoking history: Current every day smoker Have you smoked in the past 12 months: Yes Aproximately how many cigarettes per day: 20 Cigars Per Day: 0 Hx Chewing Tobacco Use: No - Substances abused Alcohol Substance route: Oral Frequency: Daily Amount used: i pint of vodka, 6 pack beer Age of first use: 12 Date of last use: 08/25/18 Benzodiazepine (Klonopin) Substance route: Oral Frequency: Daily Amount used: 1-2 tablets/ day Age of first use: 14 Date of last use: 08/24/18 Heroin Substance route: Injection Frequency: Daily Amount used: 10- 100 usd daily Age of first use: 21 Date of last use: 08/25/18 Cocaine Substance route: Injection Frequency: Daily Amount used: 50 usd, 5 bags Age of first use: 13 Date of last use: 08/25/18 Alprazolam (Xanax) Substance route: Oral Frequency: 3-6 times per week Amount used: 1 tablet Age of first use: 13 Date of last use: 08/24/18 Family Disease History - Family Disease History Family Disease History: Diabetes: Mother, Other: Father (hld) Admission Physical Exam S - Vital Signs Vital Signs: Vital Signs - 24 hr 08/25/18 15:40 Temperature 98.2 F Pulse Rate 65 Respiratory 18 Rate Blood Pressure 105/76
--- NOTE | 2018-08-25 17:26 | HP ---
"CIWA Score Nausea/Vomitin-No Nausea/No Vomiting Muscle Tremors: 4-Moderate,w/Arms Extend Anxiety: 4-Mod. Anxious/Guarded Agitation: 4-Moderately Restless Paroxysmal Sweats: 3 (Increased facial moisture) Orientation: 0-Oriented Tacttile Disturbances: 0-None Auditory Disturbances: 0-None Visual Disturbances: 0-None Headache: 2-Mild (Sides of head) CIWA-Ar Total Score: 17 - Admission Criteria OASAS Guidelines: Admission for Medically Managed Detox: Requires at least one of the followin. CIWA greater than 12 2. Seizures within the past 24 hours 3. Delirium tremens within the past 24 hours 4. Hallucinations within the past 24 hours 5. Acute intervention needed for co occurring medical disorder 6. Acute intervention needed for co occurring psychiatric disorder 7. Severe withdrawal that cannot be handled at a lower level of care (continued vomiting, continued diarrhea, abnormal vital signs) requiring intravenous medication and/or fluids 8. Patient presents the following: CIWA greater than 12 Admission Criteria Met: Admission criteria met Admission ROS [facility] Chief Complaint: having heroin and alcohol withdrawal. Allergies/Adverse Reactions: Allergies Allergy/AdvReac Type Severity Reaction Status Date / Time Penicillins Allergy Severe Rash Verified 08/25/18 15:37 History of Present Illness: 37 yo with alcohol and heroin withdrawal symptoms presenting for detox. Patient will be placed on an alcohol/anxiolytic detox regimen. Heroin use began at age 21. Use IV. Denies sharing needles or works. Hx 3 overdoses. Last Feb 2018. Has a Narcan Kit at home. Methadone Maintenance @ [facility] x 1 yr. Current methadone dose is 100 mg PO daily. States received today. Continues to relapse on heroin IV and current use 10 bags/day Alcohol use began at age 12. Currently drinking 1 pint/day. x 2 months. Klonopin/Xanax use began at age 14. 3-10 mg daily. Cocaine use began at age 13. Current use is 5-6 bags/day. IV Nicotine use began at age 12. Current 1PPD. Declines patch. Will take gum. VALERIA: 0 U-TOX: + DELFINO, MTD, OPI Denies seizures. PMHx: Asthma(as a child) MHHx: Anxiety/Depression/Panic attacks. Denies thoughts of harming self or others. States on Depakote as a mood stabilizer, also on Zoloft and Seroquel Patient Name: Eusebio Mosher Date: 1980 Address: [address] [place] [address] Sex: Male Rx Written Rx Dispensed Drug Quantity Days Supply Prescriber Name 06/28/2018 06/30/2018 chlordiazepoxide 25 mg capsule 8 2 Truong Camarillo ( JACK) 04/01/2018 04/03/2018 chlordiazepoxide 25 mg capsule 8 2 Bora Spann Search Terms: Eusebio Hickey, 1980 Search Date: 08/25/2018 05:25:12 PM States Searched: [place], [place], [place], [place], [place], [place], [place] The Drug Utilization Report below displays the controlled substance prescriptions, if any, that were dispensed in the indicated state(s). The information displayed on this report is compiled from requests submitted to other states' PMPs, and accurately reflects the information as returned by them. Blank keys indicate data not provided by other state. This report was requested by: Alecia Miranda | Reference #: [id number] Exam Limitations: No Limitations - Ebola screening Have you traveled outside of the country in the last 21 days: No Have you had contact with anyone from an Ebola affected area: No Have you been sick,other than usual withdrawal symptoms: No Do you have a fever: No - Review of Systems Constitutional: Chills, Diaphoresis, Changes in sleep (Difficulty falling and staying asleep.) EENT: reports: Nose Congestion Respiratory: reports: No Symptoms reported Cardiac: reports: No Symptoms Reported GI: reports: No Symptoms Reported : reports: No Symptoms Reported Musculoskeletal: reports: No Symptoms Reported Integumentary: reports: No Symptoms Reported Neuro: reports: Headache (Mild temporal), Tremors Endocrine: reports: No Symptoms Reported Hematology: reports: No Symptoms Reported Psychiatric: reports: Judgement Intact, Orientated x3, Agitated, Anxious, Depressed Patient History - Patient Medical History Hx Anemia: No Hx Asthma: No Hx Chronic Obstructive Pulmonary Disease (COPD): No Hx Cancer: No Hx Cardiac Disorders: No Hx Congestive Heart Failure: No Hx Hypertension: No Hx Hypercholesterolemia: No Hx Pacemaker: No HX Cerebrovascular Accident: No Hx Seizures: No Hx Dementia: No Hx Diabetes: No Hx Gastrointestinal Disorders: No Hx Liver Disease: No Hx Genitourinary Disorders: No Hx Sexually Transmitted Disorders: No Hx Renal Disease (ESRD): No Hx Thyroid Disease: No Hx Human Immunodeficiency Virus (HIV): No (09/10 last negative) Hx Hepatitis C: No Hx Depression: Yes Hx Suicide Attempt: No Hx Bipolar Disorder: No Hx Schizophrenia: Yes - Patient Surgical History Past Surgical History: No Hx Neurologic Surgery: No Hx Cataract Extraction: No Hx Cardiac Surgery: No Hx Lung Surgery: No Hx Breast Surgery: No Hx Breast Biopsy: No Hx Abdominal Surgery: No Hx Appendectomy: No Hx Cholecystectomy: No Hx Genitourinary Surgery: No Hx Section: No Hx Orthopedic Surgery: No Anesthesia Reaction: No - PPD History Previous Implant?: Yes Documented Results: Negative w/proof Implanted On Prior R Admission?: Yes Date: 11/21/17 Results: 0 mm PPD to be Administered?: No - Smoking Cessation Smoking history: Current every day smoker Have you smoked in the past 12 months: Yes Aproximately how many cigarettes per day: 20 Cigars Per Day: 0 Hx Chewing Tobacco Use: No Initiated information on smoking cessation: Yes 'Breaking Loose' booklet given: 08/25/18 - Substance & Tx. History Hx Alcohol Use: Yes Hx Substance Use: Yes Substance Use Type: Alcohol, Cocaine, Heroin, Opiates Hx Substance Use Treatment: Yes (detox, rehab, Currently in a MMTP) - Substances abused Alcohol Substance route: Oral Frequency: Daily Amount used: i pint of vodka, 6 pack beer Age of first use: 12 Date of last use: 08/25/18 Benzodiazepine (Klonopin) Substance route: Oral Frequency: Daily Amount used: 1-2 tablets/ day Age of first use: 14 Date of last use: 08/24/18 Heroin Substance route: Injection Frequency: Daily Amount used: 10- 100 usd daily Age of first use: 21 Date of last use: 08/25/18 Cocaine Substance route: Injection Frequency: Daily Amount used: 50 usd, 5 bags Age of first use: 13 Date of last use: 08/25/18 Alprazolam (Xanax) Substance route: Oral Frequency: 3-6 times per week Amount used: 1 tablet Age of first use: 13 Date of last use: 08/24/18 Family Disease History - Family Disease History Family Disease History: Diabetes: Mother, Other: Father (hld) Admission Physical Exam [facility] - Vital Signs Vital Signs: Vital Signs - 24 hr 08/25/18 15:40 Temperature 98.2 F Pulse Rate 65 Respiratory 18 Rate Blood Pressure 105/76 - Physical General Appearance: Yes: Mild Distress, Thin, Tremorous, Sweating, Anxious HEENTM: Yes: EOMI, Hearing grossly Normal, Normocephalic, Normal Voice, HANY ( Pupils = 5 mm), Pharynx Normal Respiratory: Yes: Lungs Clear, Normal Breath Sounds, No Respiratory Distress Neck: Yes: No masses,lesions,Nodules, Supple Breast: Yes: Breast Exam Deferred Cardiology: Yes: Regular Rhythm, Regular Rate, S1, S2 Abdominal: Yes: Non Tender, Flat, Soft, Increased Bowel Sounds Genitourinary: Yes: Within Normal Limits Back: Yes: Normal Inspection Musculoskeletal: Yes: full range of Motion, Gait Steady Extremities: Yes: Normal Capillary Refill, Normal Range of Motion, Non-Tender, Tremors (Gross tremors hands at rest.) 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 No increased erythema or warmth.) Lymphatic: Yes: Within Normal Limits - Diagnostic (1) Alcohol dependence with withdrawal Current Visit: Yes Status: Acute Qualifiers: Complication of substance-induced condition: uncomplicated Qualified Code(s ): F10.230 - Alcohol dependence with withdrawal, uncomplicated (2) Insomnia Current Visit: Yes Status: Chronic Qualifiers: Insomnia type: unspecified Qualified Code(s): G47.00 - Insomnia, unspecified (3) Nicotine dependence Current Visit: Yes Status: Chronic Qualifiers: Nicotine product type: cigarettes Substance use status: uncomplicated Qualified Code(s): F17.210 - Nicotine dependence, cigarettes, uncomplicated (4) Opioid dependence on agonist therapy Current Visit: Yes Status: Chronic Comment: Continues to relapse w/ illicit opiates (5) Cocaine dependence Current Visit: Yes Status: Chronic Qualifiers: Substance use status: uncomplicated Qualified Code(s): F14.20 - Cocaine dependence, uncomplicated (6) Sedative, hypnotic or anxiolytic dependence with withdrawal, uncomplicated Current Visit: Yes Status: Acute Cleared for Admission [facility] - Detox or Rehab [facility] Level of Care: Medically Managed Detox Regimen/Protocol: Librium Claeared for Rehab Admission: No Inpatient Rehab Admission - Rehab Decision to Admit Inpatient rehab admission?: No"
[2018-08-25] MEDS ORDERED: MAGNESIUM HYDROX 2400MG/30ML ORAL SUSPENSION 30 ML CUP PO PRN (17:40)
[2018-08-25] MEDS ORDERED: MAGNESIUM CITRATE 300 ML BOTTLE PO PRN (17:40)
[2018-08-25] MEDS ORDERED: MENTHOL/PHENOL 1 EACH UD MM PRN (17:40)
[2018-08-25] MEDS ORDERED: BISMUTH SUBSALICYLATE 524 MG/30 ML UD PO PRN (17:40)
[2018-08-25] MEDS ORDERED: IBUPROFEN 400 MG TABLET (FP) PO PRN (17:40)
[2018-08-25] MEDS ORDERED: hydrOXYzine PAMOATE 50 MG CAPSULE (FP) PO PRN (17:40)
[2018-08-25] MEDS ORDERED: guaiFENesin 200 MG/10 ML 10 ML UNIT-DOSE CUPS PO PRN (17:40)
[2018-08-25] MEDS ORDERED: ACETAMINOPHEN 325 MG TABLET (FP) PO PRN (17:40)
[2018-08-25] MEDS ORDERED: MELATONIN 5 MG TABLETS PO PRN (17:40)
[2018-08-25] MEDS ORDERED: MAG HYDROX/AL HYDROX/SIMETH 30 ML UNIT-DOSE CUP PO PRN (17:40)
[2018-08-25] MEDS ORDERED: chlordiazePOXIDE HCL 25 MG CAPSULE PO PRN (17:56)
[2018-08-25] MEDS ORDERED: chlordiazePOXIDE HCL 25 MG CAPSULE PO ONE (18:15)
[2018-08-25] MEDS: ACETAMINOPHEN 325 MG TABLET (FP) PO PRN (20:09)
[2018-08-25] MEDS: NICOTINE POLACRILEX 2 MG GUM BUC PRN (20:11)
[2018-08-25] MEDS ORDERED: THIAMINE HCL 100 MG TABLET (FP) PO SCH (22:00)
[2018-08-25] MEDS: chlordiazePOXIDE HCL 25 MG CAPSULE PO SCH (22:07)
[2018-08-25] MEDS ORDERED: QUEtiapine FUMARATE 50 MG TABLET PO ONE (23:00)
[2018-08-26] MEDS: chlordiazePOXIDE HCL 25 MG CAPSULE PO SCH ×2 (05:42→10:04)
[2018-08-26] MEDS: ACETAMINOPHEN 325 MG TABLET (FP) PO PRN (06:09)
--- NOTE | 2018-08-26 08:53 | PN ---
[facility] CIWA - CIWA Score Nausea/Vomitin Muscle Tremors: 2 Anxiety: 2 Agitation: 2 Paroxysmal Sweats: 1-Minimal Palms Moist Orientation: 0-Oriented Tacttile Disturbances: 1-Very Mild Itch/Numbness Auditory Disturbances: 1-Very Mild Visual Disturbances: 0-None Headache: 2-Mild CIWA-Ar Total Score: 13 [facility] Progress Note (SOAP) Subjective: alert,irritable,anxious,interrupted sleep,tremor,pain in the body Objective: 08/26/18 08:52 Vital Signs Temperature 97.4 F L 08/26/18 05:57 Pulse Rate 50 L 08/26/18 05:57 Respiratory Rate 18 08/26/18 05:57 Blood Pressure 124/74 08/26/18 05:57 O2 Sat by Pulse Oximetry (%) 08/26/18 08:52 labs pending Assessment: 08/26/18 08:53 withdrawal symptom Plan: continue detox
[2018-08-26 09:10] VITALS: BP 113/79; PULSE 70; TEMP 97.8
[2018-08-26 09:54] LABS: HEMATOCRIT 46.6 % (35.4-49); HEMOGLOBIN 15.6 GM/dL (11.7-16.9); MCH 30.1 pg (25.7-33.7); MCHC 33.5 g/dl (32.0-35.9); MEAN CELL VOLUME 89.8 fl (80-96); MEAN PLT VOLUME 8.7 fl (7.5-11.1); PLATELET COUNT 265 K/MM3 (134-434); RBC 5.19 M/mm3 (4.00-5.60); WHITE BLOOD COUNT 5.2 K/mm3 (4.0-10.0)
[2018-08-26] MEDS ORDERED: PRENATAL VITAMINS W/ FOLIC ACID TABLET (FP) PO SCH (10:00)
[2018-08-26 10:05] LABS: ALBUMIN 4.2 g/dl (3.4-5.0); BILIRUBIN,TOTAL 0.5 mg/dL (0.2-1); BLOOD UREA NITROGEN 8.8 mg/dL (7-18); CALCIUM 9.3 mg/dL (8.5-10.1); CREATININE 0.9 mg/dL (0.55-1.3); POTASSIUM 4.5 mmol/L (3.5-5.1); TOT PROT 7.9 g/dl (6.4-8.2)
[2018-08-26] MEDS: NICOTINE POLACRILEX 2 MG GUM BUC PRN (10:08)
--- NOTE | 2018-08-26 12:32 | PN ---
[facility] Progress Note Note: patient did not want to continue treatment,signed release ama
--- NOTE | 2018-08-26 12:35 | DS ---
[facility] Detox Discharge Summary Admission Date: 08/25/18 Discharge Date: 08/26/18 - History Present History: Alcohol Dependence, Cannabis Dependence, Cocaine Dependence, MMTP Additional Comments: patient did not want to complete treatment,signed release ama Pertinent Past History: nicotine dependence - Physical Exam Results Vital Signs: Vital Signs Temperature 97.8 F 08/26/18 09:09 Pulse Rate 70 08/26/18 09:09 Respiratory Rate 18 08/26/18 09:09 Blood Pressure 113/79 08/26/18 09:09 O2 Sat by Pulse Oximetry (%) Pertinent Admission Physical Exam Findings: withdrawal signs and symptom Laboratory Last Values WBC 5.2 K/mm3 (4.0-10.0) 08/26/18 06:30 RBC 5.19 M/mm3 (4.00-5.60) 08/26/18 06:30 Hgb 15.6 GM/dL (11.7-16.9) 08/26/18 06:30 Hct 46.6 % (35.4-49) 08/26/18 06:30 MCV 89.8 fl (80-96) 08/26/18 06:30 MCH 30.1 pg (25.7-33.7) 08/26/18 06:30 MCHC 33.5 g/dl (32.0-35.9) 08/26/18 06:30 RDW 15.0 % (11.9-15.9) 08/26/18 06:30 Plt Count 265 K/MM3 (134-434) D 08/26/18 06:30 MPV 8.7 fl (7.5-11.1) 08/26/18 06:30 Sodium 140 mmol/L (136-145) 08/26/18 06:30 Potassium 4.5 mmol/L (3.5-5.1) 08/26/18 06:30 Chloride 103 mmol/L (98-107) 08/26/18 06:30 Carbon Dioxide 33 mmol/L (21-32) H 08/26/18 06:30 Anion Gap 3 MMOL/L (8-16) L 08/26/18 06:30 BUN 8.8 mg/dL (7-18) 08/26/18 06:30 Creatinine 0.9 mg/dL (0.55-1.3) 08/26/18 06:30 Est GFR (CKD-EPI)AfAm 124.26 08/26/18 06:30 Est GFR (CKD-EPI)NonAf 107.21 08/26/18 06:30 Random Glucose 73 mg/dL (74-106) L 08/26/18 06:30 Calcium 9.3 mg/dL (8.5-10.1) 08/26/18 06:30 Total Bilirubin 0.5 mg/dL (0.2-1) 08/26/18 06:30 AST 17 U/L (15-37) 08/26/18 06:30 ALT 25 U/L (13-61) 08/26/18 06:30 Alkaline Phosphatase 105 U/L (45-117) 08/26/18 06:30 Total Protein 7.9 g/dl (6.4-8.2) 08/26/18 06:30 Albumin 4.2 g/dl (3.4-5.0) 08/26/18 06:30 Valproic Acid < 3.0 ug/ml (50-100) L 08/26/18 06:30 - Medication Discharge Medications: Ambulatory Orders Divalproex [Depakote -] 250 mg PO BID 01/10/18 Quetiapine Fumarate [Seroquel -] 50 mg PO HS #30 tablet 01/24/18 Sertraline HCl [Zoloft -] 50 mg PO DAILY #30 tablet 01/24/18 hydrOXYzine PAMOATE [Vistaril -] 50 mg PO Q6H PRN #30 capsule 01/24/18 - AMA Did Patient Leave Against Medical Advice: Yes
--- NOTE | 2018-08-26 13:18 | CONSULT ---
[facility] Psychiatric Consult - Data Date of interview: 08/26/18 Admission source: [facility] Identifying data: Patient is not available for psychiatric interview. As per progress notes, Mr Moseley has decided to leave the program. Patient left without meeting with psychiatrist.
[2018-08-27] MEDS ORDERED: chlordiazePOXIDE HCL 25 MG CAPSULE PO SCH (05:00)
[2018-08-28] MEDS ORDERED: chlordiazePOXIDE HCL 10 MG CAPSULE PO PRN
[2018-08-28] MEDS ORDERED: chlordiazePOXIDE HCL 10 MG CAPSULE PO SCH (05:00)
[2018-08-29] MEDS ORDERED: chlordiazePOXIDE HCL 10 MG CAPSULE PO SCH (05:00)
[2018-08-30] MEDS ORDERED: chlordiazePOXIDE HCL 10 MG CAPSULE PO ONE (05:00)
== END 2018-08-26 10:50 | disposition left against medical advice (07) | DRG 770 ==
LOC: YASAS 13:11 → Y3N 17:53
PROVIDERS: ADMIT Surgery; ATTEND Surgery
PROC: HZ2ZZZZ Detoxification Services for Substance Abuse Treatment (ICD-10-PCS; principal; 2018-08-25)
DX: F10.230 Alcohol dependence with withdrawal, uncomplicated (principal); F11.20 Opioid dependence, uncomplicated; F14.20 Cocaine dependence, uncomplicated; F12.20 Cannabis dependence, uncomplicated; F41.8 Other specified anxiety disorders; F32.9 Major depressive disorder, single episode, unspecified; F41.0 Panic disorder [episodic paroxysmal anxiety]; Z88.0 Allergy status to penicillin; Z59.0 Homelessness
CPT/HCPCS: 36415; 80053; 80164; 85027; 86593

== ENCOUNTER 2019-09-07 15:09 | Inpatient (IN) | payer OTHER ==
--- NOTE | 2019-09-07 15:19 | BHS.RME ---
Substance Use & Tx History - Substance Use History Alcohol Substance amount: vodka 2 bottles Frequency of use: Daily Substance route: Oral Benzodiazepines Substance amount: 4 mg Frequency of use: Daily Substance route: Oral Synthetic Cannabinoid Substance amount: 5 joints Frequency of use: Daily Methadone Substance amount: 100mg Frequency of use: Daily Substance route: Oral Date of Last Use: 09/07/19 (takes 100mg daily, last dose today) Cocaine- Powder Substance amount: 4 bags Frequency of use: Daily Substance route: Injection (ex: intravenous or skin popping) Heroin Substance amount: 10 bags Frequency of use: Daily Substance route: Injection (ex: intravenous or skin popping) Date of Last Use: 09/07/19 Nicotine Substance amount: 10 Frequency of use: Daily Substance route: Smoking Date of Last Use: 09/07/19 Physical/Psych/Mental Status - Behavior General Behavior: Increased activity (restlessness, agitation) Other Behaviors: Mannerisms - Cooperativeness Cooperativeness: Reluctant, Hostile - Thinking Thought Processes: Tight Thought content: Future oriented - Physical Health Problems Is patient presently having any pain?: No Does patient presently have any injuries (include location): No Does patient currently have a fever: No CIWA Nausea/Vomitin-No Nausea/No Vomiting Muscle Tremors: None Anxiety: 3 Agitation: 1-Slight > Activity Paroxysmal Sweats: 3 Orientation: 2-Disoriented Date<2 days Tacttile Disturbances: 0-None Auditory Disturbances: 1-Very Mild Visual Disturbances: 1-Very Mild Sensitivity Headache: 0-None Present CIWA-Ar Total Score: 11
--- NOTE | 2019-09-07 16:30 | HP ---
CIWA Score Nausea/Vomitin-No Nausea/No Vomiting Muscle Tremors: 3 Anxiety: 3 Agitation: 4-Moderately Restless Paroxysmal Sweats: 3 Orientation: 2-Disoriented Date<2 days Tacttile Disturbances: 0-None Auditory Disturbances: 1-Very Mild Visual Disturbances: 1-Very Mild Sensitivity Headache: 4-Moderately Severe (Throbbing temples headache = "8") CIWA-Ar Total Score: 21 - Admission Criteria OASAS Guidelines: Admission for Medically Managed Detox: Requires at least one of the followin. CIWA greater than 12 2. Seizures within the past 24 hours 3. Delirium tremens within the past 24 hours 4. Hallucinations within the past 24 hours 5. Acute intervention needed for co occurring medical disorder 6. Acute intervention needed for co occurring psychiatric disorder 7. Severe withdrawal that cannot be handled at a lower level of care (continued vomiting, continued diarrhea, abnormal vital signs) requiring intravenous medication and/or fluids 8. Patient presents the following: CIWA greater than 12 Admission Criteria Met: Admission criteria met Admitting History and Physical - Smoking History Smoking history: Current every day smoker Have you smoked in the past 12 months: Yes Aproximately how many cigarettes per day: 20 - Alcohol/Substance Use Hx Alcohol Use: Yes Admission ROS BHS - HPI Chief Complaint: Here goal is to get clean and stay just on methadone" Allergies/Adverse Reactions: Allergies Allergy/AdvReac Type Severity Reaction Status Date / Time Penicillins Allergy Severe Rash Verified 08/25/18 15:37 History of Present Illness: 37 yo with alcohol withdrawal symptoms and co-occurring illiict opioid use, presenting for detox. Patient will be placed on an alcohol/anxiolytic detox regimen. VALERIA: 0.0 UTox: + FEN/MTD/MOP/DELFINO Hx 3 overdoses. Last 2018. Denies seizures or blackouts Heroin use began at age 21. Continues to relapse on heroin and currently uses 5- 10 bags/day Use IV. Last used about 9a.m. Denies sharing needles or works. Has a Narcan Kit at home. Methadone Maintenance @ [facility]. Current methadone dose is 100 mg PO daily. States received methadone dose today. Alcohol use began at age 13. Currently drinking 2 pints/day. Last drink 6/7 a.m. today Cocaine use began at age 13. Current use is 5-10 bags/day. IV. Last used about 9a.m. Nicotine use began at age 12. Current 5-10 cig/day. Declines patch. Will take gum. PMHx: Asthma(as a child) MHHx: Depression. Anxiety. Bipolar. Insomnia. Denies thoughts of harming self or others. States no mental health medications for 2 months. Search Terms: Eusebio Mosher, 1980 Search Date: 09/07/2019 16:46:24 PM The Drug Utilization Report below displays all of the controlled substance prescriptions, if any, that your patient has filled in the last twelve months. The information displayed on this report is compiled from pharmacy submissions to the Department, and accurately reflects the information as submitted by the pharmacies. This report was requested by: Alecia Miranda | Reference #: [id number] There are no results for the search terms that you entered. Exam Limitations: No Limitations - Ebola screening Have you traveled outside of the country in the last 21 days: No (Denies COVID exposure) Have you had contact with anyone from an Ebola affected area: No Have you been sick,other than usual withdrawal symptoms: No Do you have a fever: No - Review of Systems Constitutional: Chills, Changes in sleep (Difficulty staying asleep), Unintentional Wgt. Loss EENT: reports: Nose Congestion Respiratory: reports: No Symptoms reported Cardiac: reports: No Symptoms Reported GI: reports: No Symptoms Reported : reports: No Symptoms Reported Musculoskeletal: reports: No Symptoms Reported Integumentary: reports: Lesions (Tracks from drug use) Neuro: reports: Headache (Headache "8" throbbing) Endocrine: reports: Increased Thirst Hematology: reports: No Symptoms Reported Psychiatric: reports: Agitated, Anxious, Depressed (Denies thoughts of harming self or others.) Patient History - Patient Medical History Hx Anemia: No Hx Asthma: No Hx Chronic Obstructive Pulmonary Disease (COPD): No Hx Cancer: No Hx Cardiac Disorders: No Hx Congestive Heart Failure: No Hx Hypertension: No Hx Hypercholesterolemia: No Hx Pacemaker: No HX Cerebrovascular Accident: No Hx Seizures: No Hx Dementia: No Hx Diabetes: No Hx Gastrointestinal Disorders: No Hx Liver Disease: No Hx Genitourinary Disorders: No Hx Sexually Transmitted Disorders: No Hx Renal Disease (ESRD): No Hx Thyroid Disease: No Hx Human Immunodeficiency Virus (HIV): No (09/10 last negative) Hx Hepatitis C: No Hx Depression: Yes Hx Suicide Attempt: No Hx Bipolar Disorder: No Hx Schizophrenia: Yes - Patient Surgical History Past Surgical History: No Hx Neurologic Surgery: No Hx Cataract Extraction: No Hx Cardiac Surgery: No Hx Lung Surgery: No Hx Breast Surgery: No Hx Breast Biopsy: No Hx Abdominal Surgery: No Hx Appendectomy: No Hx Cholecystectomy: No Hx Genitourinary Surgery: No Hx Section: No Hx Orthopedic Surgery: No Anesthesia Reaction: No - PPD History Previous Implant?: Yes Documented Results: Negative w/proof Implanted On Prior [facility] Admission?: Yes Date: 11/21/17 Results: 0 mm PPD to be Administered?: Yes - Smoking Cessation Smoking history: Current every day smoker Have you smoked in the past 12 months: Yes Aproximately how many cigarettes per day: 10 Cigars Per Day: 0 Hx Chewing Tobacco Use: No Initiated information on smoking cessation: Yes 'Breaking Loose' booklet given: 09/07/19 - Substance & Tx. History Hx Alcohol Use: Yes Hx Substance Use: Yes Substance Use Type: Alcohol, Cocaine, Heroin, Marijuana, Opiates Hx Substance Use Treatment: Yes (detox, rehab, currently on MMTP) - Substances abused Alcohol Other (specify): Vodka Substance route: Oral Frequency: Daily Amount used: 2 pints/day Age of first use: 13 Date of last use: 09/07/19 Cocaine Substance route: Injection Frequency: Daily Amount used: 5-10 bags Age of first use: 13 Date of last use: 09/07/19 Heroin Substance route: Injection Frequency: Daily Amount used: 5-10 bags/day Age of first use: 21 Date of last use: 09/07/19 Admission Physical Exam [facility] - Physical General Appearance: Yes: Mild Distress, Thin, Tremorous, Sweating (Increased facial moisture), Anxious HEENTM: Yes: EOMI, Hearing grossly Normal, Normocephalic, Normal Voice, HANY (Pupils = 3 mm), Pharynx Normal (Thickened, whitish mucous) Respiratory: Yes: Lungs Clear (Pulse Ox = 97 %), Normal Breath Sounds, No Respiratory Distress Neck: Yes: No masses,lesions,Nodules, Supple Breast: Yes: Breast Exam Deferred Cardiology: Yes: Regular Rhythm, Regular Rate (HR: 60), S1, S2 Abdominal: Yes: Non Tender, Flat, Soft, Increased Bowel Sounds Genitourinary: Yes: Within Normal Limits Back: Yes: Normal Inspection Musculoskeletal: Yes: full range of Motion, Gait Steady Extremities: Yes: Normal Capillary Refill, Tremors (Mild tremors felt) Neurological: Yes: 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 No increased warmth or erythema.) Lymphatic: Yes: Within Normal Limits - Diagnostic (1) Symptoms of dehydration Current Visit: Yes Status: Acute (2) IVDU (intravenous drug user) Current Visit: Yes Status: Chronic (3) Alcohol dependence with withdrawal Current Visit: Yes Status: Acute Qualifiers: Complication of substance-induced condition: uncomplicated Qualified Code(s): F10.230 - Alcohol dependence with withdrawal, uncomplicated (4) Cocaine dependence Current Visit: Yes Status: Chronic Qualifiers: Substance use status: uncomplicated Qualified Code(s): F14.20 - Cocaine dependence, uncomplicated (5) Insomnia Current Visit: Yes Status: Chronic Qualifiers: Insomnia type: unspecified Qualified Code(s): G47.00 - Insomnia, unspecified (6) Nicotine dependence Current Visit: Yes Status: Chronic Qualifiers: Nicotine product type: cigarettes Substance use status: uncomplicated Qualified Code(s): F17.210 - Nicotine dependence, cigarettes, uncomplicated (7) Opioid dependence on agonist therapy Current Visit: Yes Status: Chronic Comment: Continues to relapse w/ illicit opiates while on methadone maintenance Cleared for Admission [facility] - Detox or Rehab [facility] Level of Care: Medically Managed Detox Regimen/Protocol: Librium Claeared for Rehab Admission: No Breathalyzer - Breathalyzer Breathalyzer: 0 Urine Drug Screen - Test Device Lot number: [id number] Expiration date: 04/24/20 - Control Is test valid?: Yes - Results Drug screen NEGATIVE: No Urine drug screen results: DELFINO-Cocaine, MOP-Opiates, MTD-Methadone Inpatient Rehab Admission - Rehab Decision to Admit Inpatient rehab admission?: No
--- NOTE | 2019-09-07 17:05 | HP ---
COWS - Scale Resting Pulse: 0= [place] 80 or Below CIWA Score Nausea/Vomitin-No Nausea/No Vomiting Muscle Tremors: None Anxiety: 3 Agitation: 1-Slight > Activity Paroxysmal Sweats: 3 Orientation: 2-Disoriented Date<2 days Tacttile Disturbances: 0-None Auditory Disturbances: 1-Very Mild Visual Disturbances: 1-Very Mild Sensitivity Headache: 0-None Present CIWA-Ar Total Score: 11 - Admission Criteria OASAS Guidelines: Admission for Medically Managed Detox: Requires at least one of the followin. CIWA greater than 12 2. Seizures within the past 24 hours 3. Delirium tremens within the past 24 hours 4. Hallucinations within the past 24 hours 5. Acute intervention needed for co occurring medical disorder 6. Acute intervention needed for co occurring psychiatric disorder 7. Severe withdrawal that cannot be handled at a lower level of care (continued vomiting, continued diarrhea, abnormal vital signs) requiring intravenous medication and/or fluids 8. Admitting History and Physical - Admission History of Present Illness: Patient presents to [facility] requesting for detox from alcohol, benzodiazepine and heroin PMH: NONE PSH:NONE PSYCH:Bipolar, depression,anxiety, schizophrenia SOCIAL/DOMICILED: [facility] Legal: None Substance Use & Tx History - Substance Use History Alcohol Substance amount: vodka 2 bottles Frequency of use: Daily Substance route: Oral First use: Age 13 Benzodiazepines Substance amount: 4 mg Frequency of use: Daily Substance route: Oral First use: Age 12 Synthetic Cannabinoid Substance amount: 5 joints Frequency of use: Daily First use: Age 28 Methadone Substance amount: 100mg Frequency of use: Daily Substance route: Oral Date of Last Use: 09/07/19 (takes 100mg daily, last dose today) Cocaine- Powder Substance amount: 4 bags Frequency of use: Daily Substance route: Injection (ex: intravenous or skin popping) First use: Age 13 Heroin Substance amount: 10 bags Frequency of use: Daily Substance route: Injection (ex: intravenous or skin popping) Date of Last Use: 09/07/19 First use: Age 13 Nicotine Substance amount: 10 Frequency of use: Daily Substance route: Smoking Date of Last Use: 09/07/19 First use: Age 12 - Smoking History Smoking history: Current every day smoker Have you smoked in the past 12 months: Yes Aproximately how many cigarettes per day: 10 - Alcohol/Substance Use Hx Alcohol Use: Yes Admission ROS BHS - HPI Allergies/Adverse Reactions: Allergies Allergy/AdvReac Type Severity Reaction Status Date / Time Penicillins Allergy Severe Rash Verified 08/25/18 15:37 - Ebola screening Have you traveled outside of the country in the last 21 days: No (Denies COVID exposure) Have you had contact with anyone from an Ebola affected area: No Have you been sick,other than usual withdrawal symptoms: No Do you have a fever: No Patient History - Patient Medical History Hx Anemia: No Hx Asthma: No Hx Chronic Obstructive Pulmonary Disease (COPD): No Hx Cancer: No Hx Cardiac Disorders: No Hx Congestive Heart Failure: No Hx Hypertension: No Hx Hypercholesterolemia: No Hx Pacemaker: No HX Cerebrovascular Accident: No Hx Seizures: No Hx Dementia: No Hx Diabetes: No Hx Gastrointestinal Disorders: No Hx Liver Disease: No Hx Genitourinary Disorders: No Hx Sexually Transmitted Disorders: No Hx Renal Disease (ESRD): No Hx Thyroid Disease: No Hx Human Immunodeficiency Virus (HIV): No (09/10 last negative) Hx Hepatitis C: No Hx Depression: Yes Hx Suicide Attempt: No Hx Bipolar Disorder: No Hx Schizophrenia: Yes - Patient Surgical History Past Surgical History: No Hx Neurologic Surgery: No Hx Cataract Extraction: No Hx Cardiac Surgery: No Hx Lung Surgery: No Hx Breast Surgery: No Hx Breast Biopsy: No Hx Abdominal Surgery: No Hx Appendectomy: No Hx Cholecystectomy: No Hx Genitourinary Surgery: No Hx Section: No Hx Orthopedic Surgery: No Anesthesia Reaction: No - PPD History Previous Implant?: Yes Documented Results: Negative w/proof Implanted On Prior [facility] Admission?: Yes Date: 11/21/17 Results: 0 mm - Smoking Cessation Smoking history: Current every day smoker Have you smoked in the past 12 months: Yes Aproximately how many cigarettes per day: 10 Cigars Per Day: 0 Hx Chewing Tobacco Use: No Initiated information on smoking cessation: Yes Breathalyzer - Breathalyzer Breathalyzer: 0 Urine Drug Screen - Test Device Lot number: [id number] Expiration date: 04/24/20 - Control Is test valid?: Yes - Results Drug screen NEGATIVE: No Urine drug screen results: DELFINO-Cocaine, MOP-Opiates, MTD-Methadone
[2019-09-07] MEDS ORDERED: ONDANSETRON *ODT* 4 MG TABLET SL ONE (17:22)
[2019-09-07] MEDS ORDERED: chlordiazePOXIDE HCL 25 MG CAPSULE PO PRN (17:22)
[2019-09-07] MEDS ORDERED: ACETAMINOPHEN 325 MG TABLET (FP) PO PRN ×2 (17:22)
[2019-09-07] MEDS ORDERED: METHOCARBAMOL 500 MG TABLET PO PRN (17:22)
[2019-09-07] MEDS ORDERED: BISMUTH SUBSALICYLATE 524 MG/30 ML UD PO PRN (17:22)
[2019-09-07] MEDS ORDERED: MENTHOL/PHENOL 1 EACH UD MM PRN (17:22)
[2019-09-07] MEDS ORDERED: MAGNESIUM CITRATE 300 ML BOTTLE PO PRN (17:22)
[2019-09-07] MEDS ORDERED: NICOTINE POLACRILEX 2 MG GUM BUC PRN (17:22)
[2019-09-07] MEDS ORDERED: guaiFENesin 200 MG/10 ML 10 ML UNIT-DOSE CUPS PO PRN (17:22)
[2019-09-07] MEDS ORDERED: MAG HYDROX/AL HYDROX/SIMETH 30 ML UNIT-DOSE CUP PO PRN (17:22)
[2019-09-07] MEDS ORDERED: IBUPROFEN 400 MG TABLET (FP) PO PRN (17:22)
[2019-09-07] MEDS ORDERED: MAGNESIUM HYDROX 2400MG/30ML ORAL SUSPENSION 30 ML CUP PO PRN (17:22)
[2019-09-07 17:42] VITALS: BMI 20.2
[2019-09-07] MEDS ORDERED: THIAMINE HCL 100 MG TABLET (FP) PO SCH (22:00)
[2019-09-07] MEDS ORDERED: MELATONIN 5 MG TABLETS PO SCH (22:00)
[2019-09-07] MEDS: chlordiazePOXIDE HCL 25 MG CAPSULE PO SCH (22:26)
[2019-09-07] MEDS: hydrOXYzine PAMOATE 25 MG CAPSULE (FP) PO SCH (22:27)
[2019-09-08] MEDS ORDERED: ONDANSETRON *ODT* 4 MG TABLET SL ONE (05:06)
[2019-09-08] MEDS: chlordiazePOXIDE HCL 25 MG CAPSULE PO SCH (05:13)
[2019-09-08] MEDS: hydrOXYzine PAMOATE 25 MG CAPSULE (FP) PO SCH (05:13)
--- NOTE | 2019-09-08 06:03 | PN ---
S Progress Note Note: Patient is complaining of nausea, Denies vomiting at this time. Vital Signs Temperature 98.2 F 09/07/19 20:46 Pulse Rate 65 09/07/19 20:46 Respiratory Rate 16 09/07/19 20:46 Blood Pressure 120/77 09/07/19 20:46 O2 Sat by Pulse Oximetry (%) 97 09/07/19 20:46 Action: Ondansetron (Zofran Odt) 4mg sublingual ordered
[2019-09-08 06:53] VITALS: BP 139/90; PULSE 56; TEMP 97.3
[2019-09-08] MEDS ORDERED: METHADONE 80 MG, METHADONE 10 MG PO ONE (08:34)
[2019-09-08] MEDS ORDERED: METHADONE HCL 10 MG TABLET PO ONE (08:34)
[2019-09-08] MEDS ORDERED: hydrOXYzine PAMOATE 50 MG CAPSULE (FP) PO PRN (08:35)
[2019-09-08] MEDS ORDERED: TRIMETHOBENZAMIDE HCL 300 MG CAPSULE PO PRN (08:38)
[2019-09-08] MEDS ORDERED: IBUPROFEN 600 MG TABLET (FP) PO PRN (08:40)
--- NOTE | 2019-09-08 08:52 | PN ---
[facility] Progress Note Note: pt was spoken to earlier this morning to prevent him from leaving and to give us (medical staff) to assist with medication to help with his withdrawals. Pt agreed and was resting peacefully. No more than 15min of conversation, pt jumped up from his bed insisting to get all his medication, starting banging the hitting the door against the wall, throwing the garbage can and hitting the wall. Pt then walked off the unit and ran away. security was initiated to assist with this issue. Pt was with security. This is an AMA.
--- NOTE | 2019-09-08 08:55 | DS ---
[facility] Detox Discharge Summary Admission Date: 09/07/19 - History Present History: Alcohol Dependence, Cocaine Dependence, Opioid Dependence, Sedative Dependence - Physical Exam Results Vital Signs: Vital Signs Temperature 97.3 F L 09/08/19 05:05 Pulse Rate 56 L 09/08/19 05:05 Respiratory Rate 18 09/08/19 05:05 Blood Pressure 139/90 09/08/19 05:05 O2 Sat by Pulse Oximetry (%) 100 09/08/19 05:05 Pertinent Admission Physical Exam Findings: Vital Signs Temperature 97.3 F L 09/08/19 05:05 Pulse Rate 56 L 09/08/19 05:05 Respiratory Rate 18 09/08/19 05:05 Blood Pressure 139/90 09/08/19 05:05 O2 Sat by Pulse Oximetry (%) 100 09/08/19 05:05 labs pending pt walked off the unit; AMA. - Treatment Patient has Accepted a Rehab Referral to: pt walked off the unit. - Medication Discharge Medications: Ambulatory Orders Divalproex [Depakote -] 250 mg PO BID 01/10/18 Quetiapine Fumarate [Seroquel -] 50 mg PO HS #30 tablet 01/24/18 Sertraline HCl [Zoloft -] 50 mg PO DAILY #30 tablet 01/24/18 hydrOXYzine PAMOATE [Vistaril -] 50 mg PO Q6H PRN #30 capsule 01/24/18 - Diagnosis (1) Alcohol dependence with withdrawal Current Visit: Yes Status: Acute Qualifiers: Complication of substance-induced condition: uncomplicated Qualified Code(s): F10.230 - Alcohol dependence with withdrawal, uncomplicated (2) Symptoms of dehydration Current Visit: Yes Status: Acute (3) Cocaine dependence Current Visit: Yes Status: Chronic Qualifiers: Substance use status: uncomplicated Qualified Code(s): F14.20 - Cocaine dependence, uncomplicated (4) IVDU (intravenous drug user) Current Visit: Yes Status: Chronic (5) Insomnia Current Visit: Yes Status: Chronic Qualifiers: Insomnia type: unspecified Qualified Code(s): G47.00 - Insomnia, unspecified (6) Nicotine dependence Current Visit: Yes Status: Chronic Qualifiers: Nicotine product type: cigarettes Substance use status: uncomplicated Qualified Code(s): F17.210 - Nicotine dependence, cigarettes, uncomplicated (7) Opioid dependence on agonist therapy Current Visit: Yes Status: Chronic (8) Alcohol abuse Current Visit: No Status: Acute (9) Alcohol dependence Current Visit: No Status: Acute (10) Cannabis dependence Current Visit: No Status: Acute (11) Constipation Current Visit: No Status: Acute Qualifiers: Constipation type: slow transit constipation Qualified Code(s): K59.01 - Slow transit constipation (12) Drug-induced mood disorder Current Visit: No Status: Acute (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 Current Visit: No Status: Acute (14) Opioid dependence with withdrawal Current Visit: No Status: Acute (15) Polysubstance dependence, non-opioid, in remission Current Visit: No Status: Acute (16) Sedative, hypnotic or anxiolytic dependence with withdrawal, uncomplicated Current Visit: No Status: Acute (17) Substance induced mood disorder Current Visit: No Status: Acute (18) Substance induced mood disorder Current Visit: No Status: Acute (19) Substance-induced sleep disorder Current Visit: No Status: Acute (20) Withdrawal syndrome Current Visit: No Status: Acute (21) Anxiety and depression Current Visit: No Status: Chronic (22) Bipolar disorder Current Visit: No Status: Chronic Qualifiers: Active/Remission status: remission status unspecified Qualified Code(s): F31.9 - Bipolar disorder, unspecified (23) Opioid dependence, uncomplicated Current Visit: No Status: Chronic (24) PTSD (post-traumatic stress disorder) Current Visit: No Status: Chronic (25) Sedative hypnotic or anxiolytic dependence Current Visit: No Status: Chronic - AMA Did Patient Leave Against Medical Advice: Yes
--- NOTE | 2019-09-08 08:57 | CONSULT ---
[facility] Psychiatric Consult - Data Date of interview: 09/08/19 Admission source: Self-referred Identifying data: Mr Carlo Huber is a 38 years old , father of 2 children unemployed receiving food stamps, homeless seeking detox treatment for alcohol, opioid and cocaine Substance Abuse History: Reports history of alcohol, heroi, and cocaine use. Refer to addiction counselor's summary for further information Medical History: Significant for history of childhood ashtma. Patient is on methadone 100 mg/day from [facility]. Smokes cigarettes 1 ppd Psychiatric History: Patient is not available on the unit. Reportedly, he walked off after becoming angry and throwing items all over in his room
[2019-09-08] MEDS ORDERED: NICOTINE 14 MG/24 HOURS TOPICAL PATCH TD SCH (10:00)
[2019-09-08] MEDS ORDERED: PRENATAL VITAMINS W/ FOLIC ACID TABLET (FP) PO SCH (10:00)
[2019-09-08] MEDS ORDERED: PANTOPRAZOLE 40 MG TABLET PO SCH (10:00)
--- NOTE | 2019-09-08 10:06 | EKG ---
Test Reason : Blood Pressure : / mmHG Vent. Rate : 052 BPM Atrial Rate : 052 BPM P-R Int : 134 ms QRS Dur : 120 ms QT Int : 448 ms P-R-T Axes : 007 -07 006 degrees QTc Int : 416 ms SINUS BRADYCARDIA LEFT VENTRICULAR HYPERTROPHY WITH QRS WIDENING INFERIOR INFARCT , AGE UNDETERMINED ABNORMAL ECG Confirmed by MD DAWN, NORMA ([id number]) on 09/08/2019 10:06:00 AM Referred By: Confirmed By:NORMA SEYMOUR MD
[2019-09-08 11:49] LABS: HEMOGLOBIN 14.7 GM/dL (11.7-16.9); MCH 30.2 pg (25.7-33.7); MCHC 33.4 g/dl (32.0-35.9); MEAN CELL VOLUME 90.5 fl (80-96); MEAN PLT VOLUME 8.6 fl (7.5-11.1); PLATELET COUNT 237 K/MM3 (134-434); RBC 4.87 M/mm3 (4.00-5.60); RDW 14.3 % (11.9-15.9); WHITE BLOOD COUNT 8.2 K/mm3 (4.0-10.0)
[2019-09-08 12:05] LABS: ALBUMIN 3.6 g/dl (3.4-5.0); BILIRUBIN,TOTAL 0.3 mg/dL (0.2-1); BLOOD UREA NITROGEN 6.2 mg/dL (7-18); CALCIUM 8.7 mg/dL (8.5-10.1); CREATININE 0.8 mg/dL (0.55-1.3); POTASSIUM 3.8 mmol/L (3.5-5.1); TOT PROT 6.9 g/dl (6.4-8.2)
[2019-09-09] MEDS ORDERED: chlordiazePOXIDE HCL 25 MG CAPSULE PO SCH (05:00)
[2019-09-09] MEDS ORDERED: METHADONE 80 MG, METHADONE 10 MG PO SCH (06:00)
[2019-09-09] MEDS ORDERED: METHADONE HCL 40 MG DISPERSABLE TABLET PO SCH (06:00)
[2019-09-10] MEDS ORDERED: chlordiazePOXIDE HCL 10 MG CAPSULE PO PRN
[2019-09-10] MEDS ORDERED: chlordiazePOXIDE HCL 10 MG CAPSULE PO SCH (05:00)
[2019-09-11] MEDS ORDERED: chlordiazePOXIDE HCL 10 MG CAPSULE PO SCH (05:00)
[2019-09-12] MEDS ORDERED: chlordiazePOXIDE HCL 10 MG CAPSULE PO ONE (05:00)
== END 2019-09-08 08:41 | disposition left against medical advice (07) | DRG 770 ==
LOC: YASAS 15:09 → Y6N 17:35
PROVIDERS: ADMIT Allergy & Immunology; ATTEND Allergy & Immunology
PROC: HZ2ZZZZ Detoxification Services for Substance Abuse Treatment (ICD-10-PCS; principal; 2019-09-07)
DX: F10.230 Alcohol dependence with withdrawal, uncomplicated (principal); F11.20 Opioid dependence, uncomplicated; F13.230 Sedative, hypnotic or anxiolytic dependence with withdrawal, uncomplicated; F14.20 Cocaine dependence, uncomplicated; F12.20 Cannabis dependence, uncomplicated; F17.210 Nicotine dependence, cigarettes, uncomplicated; F19.282 Other psychoactive substance dependence with psychoactive substance-induced sleep disorder; F19.24 Other psychoactive substance dependence with psychoactive substance-induced mood disorder; F41.8 Other specified anxiety disorders; F31.9 Bipolar disorder, unspecified; F43.10 Post-traumatic stress disorder, unspecified; K59.01 Slow transit constipation; G47.01 Insomnia due to medical condition; R63.8 Other symptoms and signs concerning food and fluid intake; Z59.0 Homelessness; Z88.0 Allergy status to penicillin
CPT/HCPCS: 36415; 80053; 80164; 85027; 86780; 87389; 93005; 93010; Q0162; U0003

== ENCOUNTER 2020-05-25 16:40 | Inpatient (IN) | payer OTHER ==
[2020-05-25 18:32] VITALS: BMI 19.5
[2020-05-25] MEDS ORDERED: P-EPHED 60MG/TRIPROLIDI 2.5MG TABLET PO PRN (21:07)
[2020-05-25] MEDS ORDERED: NICOTINE POLACRILEX 2 MG GUM BC PRN (21:07)
[2020-05-25] MEDS ORDERED: guaiFENesin 200 MG/10 ML 10 ML UNIT-DOSE CUPS PO PRN (21:07)
[2020-05-25] MEDS ORDERED: NALOXONE HCL 0.4 MG/ML VIAL IM PRN (21:07)
[2020-05-25] MEDS ORDERED: MAGNESIUM HYDROX 2400MG/30ML ORAL SUSPENSION 30 ML CUP PO PRN (21:07)
[2020-05-25] MEDS ORDERED: MAGNESIUM CITRATE 300 ML BOTTLE PO PRN (21:07)
[2020-05-25] MEDS ORDERED: MAG HYDROX/AL HYDROX/SIMETH 30 ML UNIT-DOSE CUP PO PRN (21:07)
[2020-05-25] MEDS ORDERED: NALOXONE (NARCAN) HCL 4 MG/0.1 ML SPRAY NS PRN (21:07)
[2020-05-25] MEDS ORDERED: LOPERAMIDE HCL 2 MG CAPSULE PO PRN (21:07)
[2020-05-25] MEDS ORDERED: IBUPROFEN 400 MG TABLET (FP) PO PRN (21:07)
[2020-05-25] MEDS: ACETAMINOPHEN 325 MG TABLET (FP) PO PRN (22:00)
[2020-05-25] MEDS: hydrOXYzine PAMOATE 25 MG CAPSULE (FP) PO SCH (22:00)
[2020-05-25] MEDS ORDERED: MELATONIN 5 MG TABLETS PO SCH (22:00)
[2020-05-25] MEDS: THIAMINE HCL 100 MG TABLET (FP) PO SCH (22:00)
[2020-05-25] MEDS: NICOTINE 7 MG/24 HOURS TOPICAL PATCH TD SCH (22:02)
[2020-05-26] MEDS: ACETAMINOPHEN 325 MG TABLET (FP) PO PRN (06:39)
[2020-05-26] MEDS: hydrOXYzine PAMOATE 25 MG CAPSULE (FP) PO SCH ×5 (06:39→21:32)
[2020-05-26] MEDS ORDERED: METHADONE HCL 10 MG TABLET PO ONE (08:27)
[2020-05-26] MEDS ORDERED: METHADONE 80 MG, METHADONE 20 MG PO ONE (08:41)
[2020-05-26] MEDS ORDERED: METHADONE HCL 40 MG DISPERSABLE TABLET ONE (08:55)
[2020-05-26] MEDS ORDERED: METHADONE HCL 10 MG TABLET ONE (08:55)
[2020-05-26] MEDS: NICOTINE 7 MG/24 HOURS TOPICAL PATCH TD SCH (09:01)
[2020-05-26] MEDS: PRENATAL VITAMINS W/ FOLIC ACID TABLET (FP) PO SCH (09:01)
[2020-05-26] MEDS: DIVALPROEX NA *ER* EXTEND REL 500 MG TABLET.SA (FP) PO SCH (10:07)
[2020-05-26 10:31] LABS: HEMATOCRIT 40.5 % (35.4-49); HEMOGLOBIN 13.6 GM/dL (11.7-16.9); MCH 29.8 pg (25.7-33.7); MCHC 33.5 g/dl (32.0-35.9); MEAN PLT VOLUME 9.1 fl (7.5-11.1); PLATELET COUNT 266 K/MM3 (134-434); RBC 4.55 M/mm3 (4.00-5.60); RDW 15.2 % (11.9-15.9); WHITE BLOOD COUNT 7.6 K/mm3 (4.0-10.0)
[2020-05-26 10:33] LABS: POTASSIUM 4.4 mmol/L (3.5-5.1)
[2020-05-26 10:34] LABS: CALCIUM 8.6 mg/dL (8.5-10.1)
[2020-05-26 10:35] LABS: ALBUMIN 3.2 g/dl (3.4-5.0); BLOOD UREA NITROGEN 10.1 mg/dL (7-18)
[2020-05-26 10:38] LABS: CREATININE 0.8 mg/dL (0.55-1.3)
[2020-05-26 10:40] LABS: BILIRUBIN,TOTAL 0.2 mg/dL (0.2-1); TOT PROT 6.6 g/dl (6.4-8.2)
[2020-05-26] MEDS: BACITRACIN 0.9 GM PACKET TP SCH ×2 (13:20→21:32)
[2020-05-26] MEDS: METHOCARBAMOL 500 MG TABLET PO PRN (13:20)
[2020-05-26] MEDS: TOLNAFTATE 1% CREAM 15 GM TUBE TP SCH ×2 (13:20→21:32)
[2020-05-26] MEDS: THIAMINE HCL 100 MG TABLET (FP) PO SCH (21:32)
[2020-05-26] MEDS: MELATONIN 5 MG TABLETS PO PRN (21:32)
[2020-05-27] MEDS ORDERED: METHADONE HCL 10 MG TABLET PO SCH (06:00)
[2020-05-27] MEDS ORDERED: METHADONE HCL 10 MG TABLET ONE (06:45)
[2020-05-27] MEDS ORDERED: METHADONE HCL 40 MG DISPERSABLE TABLET ONE (06:46)
[2020-05-27] MEDS: ACETAMINOPHEN 325 MG TABLET (FP) PO PRN ×2 (06:47→21:15)
[2020-05-27] MEDS: hydrOXYzine PAMOATE 25 MG CAPSULE (FP) PO SCH ×5 (06:47→21:14)
[2020-05-27] MEDS: METHADONE 80 MG, METHADONE 20 MG PO SCH (06:47)
[2020-05-27] MEDS ORDERED: PT OWN MED DRAWER 7, Y5N ONE (08:43)
[2020-05-27] MEDS ORDERED: MASKS NR ONE (08:51)
[2020-05-27] MEDS: BACITRACIN 0.9 GM PACKET TP SCH ×2 (09:59→21:13)
[2020-05-27] MEDS: NICOTINE 7 MG/24 HOURS TOPICAL PATCH TD SCH (09:59)
[2020-05-27] MEDS: DIVALPROEX NA *ER* EXTEND REL 500 MG TABLET.SA (FP) PO SCH (09:59)
[2020-05-27] MEDS: PRENATAL VITAMINS W/ FOLIC ACID TABLET (FP) PO SCH (10:00)
[2020-05-27] MEDS: TOLNAFTATE 1% CREAM 15 GM TUBE TP SCH ×2 (10:01→21:16)
[2020-05-27 14:49] LABS: URINE APPEARANCE CLEAR; URINE BILIRUBIN NEGATIVE (NEGATIVE); URINE COLOR YELLOW; URINE GLUCOSE (UA) NEGATIVE (NEGATIVE); URINE KETONE NEGATIVE (NEGATIVE); URINE LEUK ESTERASE NEGATIVE (NEGATIVE); URINE NITRITE NEGATIVE (NEGATIVE); URINE PROTEIN NEGATIVE (NEGATIVE); URINE UROBILINOGEN 0.2 mg/dL (0.2-1.0)
[2020-05-27] MEDS: MELATONIN 5 MG TABLETS PO PRN (21:13)
[2020-05-27] MEDS: THIAMINE HCL 100 MG TABLET (FP) PO SCH (21:13)
[2020-05-28] MEDS ORDERED: METHADONE HCL 40 MG DISPERSABLE TABLET ONE (03:29)
[2020-05-28] MEDS ORDERED: METHADONE HCL 10 MG TABLET ONE (03:29)
[2020-05-28] MEDS: hydrOXYzine PAMOATE 25 MG CAPSULE (FP) PO SCH ×5 (06:49→21:24)
[2020-05-28] MEDS: METHADONE 80 MG, METHADONE 20 MG PO SCH (06:49)
[2020-05-28] MEDS ORDERED: PT OWN MED DRAWER 7, Y5N ONE ×2 (08:42→21:23)
[2020-05-28] MEDS: DIVALPROEX NA *ER* EXTEND REL 500 MG TABLET.SA (FP) PO SCH (09:32)
[2020-05-28] MEDS: NICOTINE 7 MG/24 HOURS TOPICAL PATCH TD SCH (09:32)
[2020-05-28] MEDS: BACITRACIN 0.9 GM PACKET TP SCH ×2 (09:32→21:25)
[2020-05-28] MEDS: PRENATAL VITAMINS W/ FOLIC ACID TABLET (FP) PO SCH (09:32)
[2020-05-28] MEDS: TOLNAFTATE 1% CREAM 15 GM TUBE TP SCH ×2 (09:34→21:25)
[2020-05-28] MEDS: THIAMINE HCL 100 MG TABLET (FP) PO SCH (21:25)
[2020-05-28] MEDS: MELATONIN 5 MG TABLETS PO PRN (21:25)
[2020-05-29] MEDS ORDERED: METHADONE HCL 40 MG DISPERSABLE TABLET ONE (03:18)
[2020-05-29] MEDS ORDERED: METHADONE HCL 10 MG TABLET ONE (03:18)
[2020-05-29] MEDS: METHADONE 80 MG, METHADONE 20 MG PO SCH (06:30)
[2020-05-29] MEDS: hydrOXYzine PAMOATE 25 MG CAPSULE (FP) PO SCH ×5 (06:31→21:10)
[2020-05-29] MEDS: NICOTINE 7 MG/24 HOURS TOPICAL PATCH TD SCH (09:18)
[2020-05-29] MEDS: PRENATAL VITAMINS W/ FOLIC ACID TABLET (FP) PO SCH (09:18)
[2020-05-29] MEDS: BACITRACIN 0.9 GM PACKET TP SCH ×2 (09:18→21:10)
[2020-05-29] MEDS: DIVALPROEX NA *ER* EXTEND REL 500 MG TABLET.SA (FP) PO SCH (09:18)
[2020-05-29] MEDS: TOLNAFTATE 1% CREAM 15 GM TUBE TP SCH ×2 (09:19→21:11)
[2020-05-29] MEDS: MELATONIN 5 MG TABLETS PO PRN (21:10)
[2020-05-29] MEDS: THIAMINE HCL 100 MG TABLET (FP) PO SCH (21:10)
[2020-05-29] MEDS: METHOCARBAMOL 500 MG TABLET PO PRN (21:11)
[2020-05-30 03:06] LABS: SARS-CoV-2 NAA Not Detected (Not Detected)
[2020-05-30] MEDS ORDERED: METHADONE HCL 10 MG TABLET ONE (03:21)
[2020-05-30] MEDS ORDERED: METHADONE HCL 40 MG DISPERSABLE TABLET ONE (03:21)
[2020-05-30] MEDS ORDERED: PT OWN MED DRAWER 7, Y5N ONE (03:22)
[2020-05-30] MEDS ORDERED: DIVALPROEX NA *ER* EXTEND REL 500 MG TABLET.SA (FP) PO SCH (06:00)
[2020-05-30] MEDS: METHADONE 80 MG, METHADONE 20 MG PO SCH (06:50)
[2020-05-30] MEDS: hydrOXYzine PAMOATE 25 MG CAPSULE (FP) PO SCH ×2 (06:51→09:29)
[2020-05-30 07:13] VITALS: BP 123/80; PULSE 61; TEMP 97.3
[2020-05-30] MEDS: BACITRACIN 0.9 GM PACKET TP SCH (09:27)
[2020-05-30] MEDS: NICOTINE 7 MG/24 HOURS TOPICAL PATCH TD SCH (09:27)
[2020-05-30] MEDS: TOLNAFTATE 1% CREAM 15 GM TUBE TP SCH (09:28)
[2020-05-30] MEDS: PRENATAL VITAMINS W/ FOLIC ACID TABLET (FP) PO SCH (09:28)
[2020-05-30] MEDS ORDERED: hydrOXYzine PAMOATE 25 MG CAPSULE (FP) PO PRN (11:43)
[2020-05-30] MEDS: METHOCARBAMOL 500 MG TABLET PO PRN (15:51)
[2020-05-31] MEDS ORDERED: DIVALPROEX NA *ER* EXTEND REL 500 MG TABLET.SA (FP) PO SCH (10:00)
== END 2020-05-30 16:30 | disposition left against medical advice (07) | DRG 770 ==
LOC: YASAS 16:40 → Y3E 20:37
PROVIDERS: ADMIT Allergy & Immunology; ATTEND Allergy & Immunology
PROC: HZ42ZZZ Group Counseling for Substance Abuse Treatment, Cognitive-Behavioral (ICD-10-PCS; principal; 2020-05-25)
DX: F10.20 Alcohol dependence, uncomplicated (principal); F14.20 Cocaine dependence, uncomplicated; F13.20 Sedative, hypnotic or anxiolytic dependence, uncomplicated; F11.20 Opioid dependence, uncomplicated; F17.210 Nicotine dependence, cigarettes, uncomplicated; F19.282 Other psychoactive substance dependence with psychoactive substance-induced sleep disorder; F19.24 Other psychoactive substance dependence with psychoactive substance-induced mood disorder; F31.9 Bipolar disorder, unspecified; F41.9 Anxiety disorder, unspecified; F43.10 Post-traumatic stress disorder, unspecified; M54.5 Low back pain; G89.29 Other chronic pain; B35.3 Tinea pedis; B18.2 Chronic viral hepatitis C; Z62.810 Personal history of physical and sexual abuse in childhood; Z59.0 Homelessness
CPT/HCPCS: 36415; 80053; 80164; 81003; 85027; 86780; C9803; U0003; U0005

== ENCOUNTER 2020-07-14 18:20 | Inpatient (IN) | payer OTHER ==
[2020-07-14 19:06] VITALS: BMI 22.2
[2020-07-14] MEDS ORDERED: MAGNESIUM CITRATE 300 ML BOTTLE PO PRN ×2 (19:06→19:16)
[2020-07-14] MEDS ORDERED: METHOCARBAMOL 500 MG TABLET PO PRN (19:06)
[2020-07-14] MEDS ORDERED: IBUPROFEN 400 MG TABLET (FP) PO PRN (19:06)
[2020-07-14] MEDS ORDERED: ACETAMINOPHEN 325 MG TABLET (FP) PO PRN ×2 (19:06)
[2020-07-14] MEDS ORDERED: MAG HYDROX/AL HYDROX/SIMETH 30 ML UNIT-DOSE CUP PO PRN (19:06)
[2020-07-14] MEDS ORDERED: chlordiazePOXIDE HCL 25 MG CAPSULE PO PRN (19:06)
[2020-07-14] MEDS ORDERED: MENTHOL/PHENOL 1 EACH UD MM PRN (19:06)
[2020-07-14] MEDS ORDERED: ONDANSETRON *ODT* 4 MG TABLET SL PRN (19:06)
[2020-07-14] MEDS ORDERED: BISMUTH SUBSALICYLATE 524 MG/30 ML PO PRN (19:06)
[2020-07-14] MEDS ORDERED: MAGNESIUM HYDROX 2400MG/30ML ORAL SUSPENSION 30 ML CUP PO PRN ×2 (19:06→19:16)
[2020-07-14] MEDS ORDERED: LOPERAMIDE HCL 2 MG CAPSULE PO PRN (19:16)
[2020-07-14] MEDS ORDERED: guaiFENesin 200 MG/10 ML 10 ML UNIT-DOSE CUPS PO PRN (19:16)
[2020-07-14] MEDS ORDERED: P-EPHED 60MG/TRIPROLIDI 2.5MG TABLET PO PRN (19:16)
[2020-07-14] MEDS ORDERED: MELATONIN 5 MG TABLETS PO SCH ×2 (22:00)
[2020-07-14] MEDS ORDERED: hydrOXYzine PAMOATE 25 MG CAPSULE (FP) PO SCH (22:00)
[2020-07-14] MEDS ORDERED: THIAMINE HCL 100 MG TABLET (FP) PO SCH (22:00)
[2020-07-14] MEDS ORDERED: hydrOXYzine PAMOATE 50 MG CAPSULE (FP) PO ONE (22:26)
[2020-07-14] MEDS ORDERED: chlordiazePOXIDE HCL 25 MG CAPSULE PO SCH (23:00)
[2020-07-15] MEDS: THIAMINE HCL 100 MG TABLET (FP) PO SCH ×2 (00:40→21:48)
[2020-07-15] MEDS: hydrOXYzine PAMOATE 25 MG CAPSULE (FP) PO SCH ×2 (00:40→06:55)
[2020-07-15] MEDS: IBUPROFEN 400 MG TABLET (FP) PO PRN (00:42)
[2020-07-15] MEDS ORDERED: MASKS NR ONE (06:45)
[2020-07-15] MEDS ORDERED: METHADONE HCL 40 MG DISPERSABLE TABLET PO SCH (07:30)
[2020-07-15] MEDS ORDERED: METHADONE HCL 10 MG TABLET ONE (07:44)
[2020-07-15] MEDS ORDERED: METHADONE HCL 40 MG DISPERSABLE TABLET ONE (07:44)
[2020-07-15] MEDS: METHADONE 80 MG, METHADONE 20 MG PO SCH (07:45)
[2020-07-15] MEDS ORDERED: MELATONIN 5 MG TABLETS PO PRN (09:31)
[2020-07-15] MEDS ORDERED: PRENATAL VITAMINS W/ FOLIC ACID TABLET (FP) PO SCH (10:00)
[2020-07-15 10:14] LABS: HEMATOCRIT 35.8 % (35.4-49); HEMOGLOBIN 12.1 GM/dL (11.7-16.9); MCH 28.8 pg (25.7-33.7); MCHC 33.7 g/dl (32.0-35.9); MEAN CELL VOLUME 85.5 fl (80-96); PLATELET COUNT 285 K/MM3 (134-434); RBC 4.19 M/mm3 (4.00-5.60); RDW 15.4 % (11.9-15.9); WHITE BLOOD COUNT 6.8 K/mm3 (4.0-10.0)
[2020-07-15 10:26] LABS: ALBUMIN 3.2 g/dl (3.4-5.0); BLOOD UREA NITROGEN 8.4 mg/dL (7-18); CALCIUM 8.4 mg/dL (8.5-10.1)
[2020-07-15 10:30] LABS: CREATININE 0.8 mg/dL (0.55-1.3)
[2020-07-15 10:31] LABS: BILIRUBIN,TOTAL 0.4 mg/dL (0.2-1); TOT PROT 6.5 g/dl (6.4-8.2)
[2020-07-15] MEDS: PRENATAL VITAMINS W/ FOLIC ACID TABLET (FP) PO SCH (10:34)
[2020-07-15] MEDS: NICOTINE 14 MG/24 HOURS TOPICAL PATCH TD SCH (10:42)
[2020-07-15] MEDS: NICOTINE POLACRILEX 2 MG GUM BC PRN (11:37)
[2020-07-15] MEDS: MAG HYDROX/AL HYDROX/SIMETH 30 ML UNIT-DOSE CUP PO PRN (12:40)
[2020-07-15 14:30] LABS: URINE APPEARANCE CLEAR; URINE BILIRUBIN NEGATIVE (NEGATIVE); URINE COLOR YELLOW; URINE GLUCOSE (UA) NEGATIVE (NEGATIVE); URINE KETONE NEGATIVE (NEGATIVE); URINE LEUK ESTERASE NEGATIVE (NEGATIVE); URINE NITRITE NEGATIVE (NEGATIVE); URINE PROTEIN NEGATIVE (NEGATIVE)
[2020-07-15] MEDS: DIVALPROEX SODIUM 500 MG TABLET E.C. PO SCH (21:48)
[2020-07-15] MEDS: hydrOXYzine PAMOATE 50 MG CAPSULE (FP) PO PRN (21:49)
[2020-07-15] MEDS: ACETAMINOPHEN 325 MG TABLET (FP) PO PRN (21:49)
[2020-07-15] MEDS ORDERED: diphenhydrAMINE HCL 25 MG CAPSULE (FP) PO ONE (23:24)
[2020-07-15] MEDS ORDERED: diphenhydrAMINE HCL 50 MG CAPSULE PO ONE (23:30)
[2020-07-16] MEDS ORDERED: METHADONE HCL 10 MG TABLET ONE (03:13)
[2020-07-16] MEDS ORDERED: METHADONE HCL 40 MG DISPERSABLE TABLET ONE (03:13)
[2020-07-16] MEDS ORDERED: chlordiazePOXIDE HCL 25 MG CAPSULE PO SCH (05:00)
[2020-07-16] MEDS: METHADONE 80 MG, METHADONE 20 MG PO SCH (06:16)
[2020-07-16] MEDS: hydrOXYzine PAMOATE 50 MG CAPSULE (FP) PO PRN ×3 (06:20→21:25)
[2020-07-16] MEDS: NICOTINE 14 MG/24 HOURS TOPICAL PATCH TD SCH (09:56)
[2020-07-16] MEDS: PRENATAL VITAMINS W/ FOLIC ACID TABLET (FP) PO SCH (09:56)
[2020-07-16] MEDS: IBUPROFEN 400 MG TABLET (FP) PO PRN (09:56)
[2020-07-16] MEDS: DIVALPROEX SODIUM 500 MG TABLET E.C. PO SCH (21:24)
[2020-07-16] MEDS: THIAMINE HCL 100 MG TABLET (FP) PO SCH (21:24)
[2020-07-17] MEDS ORDERED: chlordiazePOXIDE HCL 10 MG CAPSULE PO PRN
[2020-07-17] MEDS ORDERED: METHADONE HCL 10 MG TABLET ONE (03:13)
[2020-07-17] MEDS ORDERED: METHADONE HCL 40 MG DISPERSABLE TABLET ONE (03:13)
[2020-07-17] MEDS ORDERED: chlordiazePOXIDE HCL 10 MG CAPSULE PO SCH (05:00)
[2020-07-17] MEDS: METHADONE 80 MG, METHADONE 20 MG PO SCH (06:07)
[2020-07-17] MEDS: hydrOXYzine PAMOATE 50 MG CAPSULE (FP) PO PRN ×3 (06:10→21:48)
[2020-07-17] MEDS: PRENATAL VITAMINS W/ FOLIC ACID TABLET (FP) PO SCH (10:22)
[2020-07-17] MEDS: NICOTINE 14 MG/24 HOURS TOPICAL PATCH TD SCH (10:23)
[2020-07-17] MEDS: ACETAMINOPHEN 325 MG TABLET (FP) PO PRN (10:24)
[2020-07-17] MEDS: DIVALPROEX SODIUM 500 MG TABLET E.C. PO SCH (21:48)
[2020-07-17] MEDS: THIAMINE HCL 100 MG TABLET (FP) PO SCH (21:48)
[2020-07-18] MEDS ORDERED: METHADONE HCL 10 MG TABLET ONE (03:12)
[2020-07-18] MEDS ORDERED: METHADONE HCL 40 MG DISPERSABLE TABLET ONE (03:12)
[2020-07-18] MEDS ORDERED: chlordiazePOXIDE HCL 10 MG CAPSULE PO SCH (05:00)
[2020-07-18] MEDS: METHADONE 80 MG, METHADONE 20 MG PO SCH (06:09)
[2020-07-18] MEDS: hydrOXYzine PAMOATE 50 MG CAPSULE (FP) PO PRN ×2 (06:11→21:28)
[2020-07-18 10:06] LABS: SARS-CoV-2 NAA Not Detected (Not Detected)
[2020-07-18] MEDS: NICOTINE 14 MG/24 HOURS TOPICAL PATCH TD SCH (10:30)
[2020-07-18] MEDS: PRENATAL VITAMINS W/ FOLIC ACID TABLET (FP) PO SCH (10:30)
[2020-07-18] MEDS: THIAMINE HCL 100 MG TABLET (FP) PO SCH (21:27)
[2020-07-18] MEDS: DIVALPROEX SODIUM 500 MG TABLET E.C. PO SCH (21:27)
[2020-07-19] MEDS ORDERED: METHADONE HCL 40 MG DISPERSABLE TABLET ONE (03:08)
[2020-07-19] MEDS ORDERED: METHADONE HCL 10 MG TABLET ONE (03:08)
[2020-07-19] MEDS ORDERED: chlordiazePOXIDE HCL 10 MG CAPSULE PO ONE (05:00)
[2020-07-19] MEDS: hydrOXYzine PAMOATE 50 MG CAPSULE (FP) PO PRN ×3 (06:09→21:30)
[2020-07-19] MEDS: METHADONE 80 MG, METHADONE 20 MG PO SCH (06:09)
[2020-07-19] MEDS: PRENATAL VITAMINS W/ FOLIC ACID TABLET (FP) PO SCH (10:15)
[2020-07-19] MEDS: NICOTINE 14 MG/24 HOURS TOPICAL PATCH TD SCH (10:15)
[2020-07-19] MEDS: MINERAL OIL/PETROLAT/WATER TOPICAL CREAM 113 GM JAR TP SCH (11:08)
[2020-07-19] MEDS: DIVALPROEX SODIUM 500 MG TABLET E.C. PO SCH (21:30)
[2020-07-19] MEDS: THIAMINE HCL 100 MG TABLET (FP) PO SCH (21:30)
[2020-07-20] MEDS ORDERED: METHADONE HCL 10 MG TABLET ONE (03:11)
[2020-07-20] MEDS ORDERED: METHADONE HCL 40 MG DISPERSABLE TABLET ONE (03:11)
[2020-07-20] MEDS: hydrOXYzine PAMOATE 50 MG CAPSULE (FP) PO PRN ×3 (05:57→21:18)
[2020-07-20] MEDS: METHADONE 80 MG, METHADONE 20 MG PO SCH (05:57)
[2020-07-20] MEDS: NICOTINE 14 MG/24 HOURS TOPICAL PATCH TD SCH (09:50)
[2020-07-20] MEDS: PRENATAL VITAMINS W/ FOLIC ACID TABLET (FP) PO SCH (09:51)
[2020-07-20] MEDS: MINERAL OIL/PETROLAT/WATER TOPICAL CREAM 113 GM JAR TP SCH (09:51)
[2020-07-20] MEDS: MAG HYDROX/AL HYDROX/SIMETH 30 ML UNIT-DOSE CUP PO PRN (12:21)
[2020-07-20] MEDS: NICOTINE POLACRILEX 2 MG GUM BC PRN (13:01)
[2020-07-20] MEDS: THIAMINE HCL 100 MG TABLET (FP) PO SCH (21:18)
[2020-07-20] MEDS: DIVALPROEX SODIUM 500 MG TABLET E.C. PO SCH (21:18)
[2020-07-20] MEDS: ACETAMINOPHEN 325 MG TABLET (FP) PO PRN (22:46)
[2020-07-21] MEDS ORDERED: METHADONE HCL 40 MG DISPERSABLE TABLET ONE (03:19)
[2020-07-21] MEDS ORDERED: METHADONE HCL 10 MG TABLET ONE (03:20)
[2020-07-21] MEDS: hydrOXYzine PAMOATE 50 MG CAPSULE (FP) PO PRN ×2 (06:28→21:13)
[2020-07-21] MEDS: METHADONE 80 MG, METHADONE 20 MG PO SCH (06:28)
[2020-07-21] MEDS: NICOTINE 14 MG/24 HOURS TOPICAL PATCH TD SCH (10:32)
[2020-07-21] MEDS: PRENATAL VITAMINS W/ FOLIC ACID TABLET (FP) PO SCH (10:32)
[2020-07-21] MEDS: MINERAL OIL/PETROLAT/WATER TOPICAL CREAM 113 GM JAR TP SCH (10:32)
[2020-07-21] MEDS: ACETAMINOPHEN 325 MG TABLET (FP) PO PRN (10:33)
[2020-07-21] MEDS: NICOTINE POLACRILEX 2 MG GUM BC PRN ×2 (10:34→17:33)
[2020-07-21] MEDS: DIVALPROEX SODIUM 500 MG TABLET E.C. PO SCH (21:12)
[2020-07-21] MEDS: THIAMINE HCL 100 MG TABLET (FP) PO SCH (21:13)
[2020-07-22] MEDS ORDERED: METHADONE HCL 40 MG DISPERSABLE TABLET ONE (05:48)
[2020-07-22] MEDS ORDERED: METHADONE HCL 10 MG TABLET ONE (05:48)
[2020-07-22] MEDS: METHADONE 80 MG, METHADONE 20 MG PO SCH (06:01)
[2020-07-22] MEDS: hydrOXYzine PAMOATE 50 MG CAPSULE (FP) PO PRN ×2 (06:01→09:51)
[2020-07-22] MEDS: PRENATAL VITAMINS W/ FOLIC ACID TABLET (FP) PO SCH (09:51)
[2020-07-22] MEDS: MINERAL OIL/PETROLAT/WATER TOPICAL CREAM 113 GM JAR TP SCH (09:52)
[2020-07-22] MEDS: NICOTINE 14 MG/24 HOURS TOPICAL PATCH TD SCH (09:53)
[2020-07-22] MEDS: NICOTINE POLACRILEX 2 MG GUM BC PRN (09:54)
[2020-07-22] MEDS: MAG HYDROX/AL HYDROX/SIMETH 30 ML UNIT-DOSE CUP PO PRN (15:40)
[2020-07-22] MEDS: DIVALPROEX SODIUM 500 MG TABLET E.C. PO SCH (21:40)
[2020-07-22] MEDS: THIAMINE HCL 100 MG TABLET (FP) PO SCH (21:40)
[2020-07-23] MEDS ORDERED: METHADONE HCL 40 MG DISPERSABLE TABLET ONE (04:05)
[2020-07-23] MEDS ORDERED: METHADONE HCL 10 MG TABLET ONE (04:05)
[2020-07-23] MEDS: METHADONE 80 MG, METHADONE 20 MG PO SCH (05:39)
[2020-07-23] MEDS: PRENATAL VITAMINS W/ FOLIC ACID TABLET (FP) PO SCH (09:41)
[2020-07-23] MEDS: NICOTINE 14 MG/24 HOURS TOPICAL PATCH TD SCH (09:42)
[2020-07-23] MEDS: MINERAL OIL/PETROLAT/WATER TOPICAL CREAM 113 GM JAR TP SCH (09:42)
[2020-07-23] MEDS: THIAMINE HCL 100 MG TABLET (FP) PO SCH (21:14)
[2020-07-23] MEDS: hydrOXYzine PAMOATE 50 MG CAPSULE (FP) PO PRN (21:14)
[2020-07-23] MEDS: DIVALPROEX SODIUM 500 MG TABLET E.C. PO SCH (21:14)
[2020-07-24] MEDS ORDERED: METHADONE HCL 10 MG TABLET ONE (03:09)
[2020-07-24] MEDS ORDERED: METHADONE HCL 40 MG DISPERSABLE TABLET ONE (03:09)
[2020-07-24] MEDS: METHADONE 80 MG, METHADONE 20 MG PO SCH (06:07)
[2020-07-24] MEDS: PRENATAL VITAMINS W/ FOLIC ACID TABLET (FP) PO SCH (09:28)
[2020-07-24] MEDS: NICOTINE 14 MG/24 HOURS TOPICAL PATCH TD SCH (09:28)
[2020-07-24] MEDS: MINERAL OIL/PETROLAT/WATER TOPICAL CREAM 113 GM JAR TP SCH (09:29)
[2020-07-24] MEDS: MAG HYDROX/AL HYDROX/SIMETH 30 ML UNIT-DOSE CUP PO PRN (09:29)
[2020-07-24] MEDS: hydrOXYzine PAMOATE 50 MG CAPSULE (FP) PO PRN ×2 (09:30→21:42)
[2020-07-24] MEDS ORDERED: AMMONIUM LACTATE 12% LOTION 225 GM BOTTLE TP PRN (17:10)
[2020-07-24] MEDS: THIAMINE HCL 100 MG TABLET (FP) PO SCH (21:42)
[2020-07-24] MEDS: DIVALPROEX SODIUM 500 MG TABLET E.C. PO SCH (21:42)
[2020-07-25] MEDS ORDERED: METHADONE HCL 10 MG TABLET ONE (03:02)
[2020-07-25] MEDS ORDERED: METHADONE HCL 40 MG DISPERSABLE TABLET ONE (03:02)
[2020-07-25] MEDS: METHADONE 80 MG, METHADONE 20 MG PO SCH (06:04)
[2020-07-25] MEDS: hydrOXYzine PAMOATE 50 MG CAPSULE (FP) PO PRN ×2 (09:46→21:11)
[2020-07-25] MEDS: PRENATAL VITAMINS W/ FOLIC ACID TABLET (FP) PO SCH (09:46)
[2020-07-25] MEDS: NICOTINE 14 MG/24 HOURS TOPICAL PATCH TD SCH (09:46)
[2020-07-25] MEDS: MINERAL OIL/PETROLAT/WATER TOPICAL CREAM 113 GM JAR TP SCH (09:47)
[2020-07-25] MEDS ORDERED: COLLOIDAL OATMEAL 1 BAR EACH TP PRN (12:06)
[2020-07-25] MEDS: DIVALPROEX SODIUM 500 MG TABLET E.C. PO SCH (21:10)
[2020-07-25] MEDS: THIAMINE HCL 100 MG TABLET (FP) PO SCH (21:11)
[2020-07-26] MEDS: ACETAMINOPHEN 325 MG TABLET (FP) PO PRN (02:59)
[2020-07-26] MEDS ORDERED: METHADONE HCL 40 MG DISPERSABLE TABLET ONE (03:07)
[2020-07-26] MEDS ORDERED: METHADONE HCL 10 MG TABLET ONE (03:07)
[2020-07-26] MEDS: METHADONE 80 MG, METHADONE 20 MG PO SCH (05:52)
[2020-07-26] MEDS: hydrOXYzine PAMOATE 50 MG CAPSULE (FP) PO PRN ×2 (05:52→21:27)
[2020-07-26] MEDS: PRENATAL VITAMINS W/ FOLIC ACID TABLET (FP) PO SCH (10:32)
[2020-07-26] MEDS: NICOTINE 14 MG/24 HOURS TOPICAL PATCH TD SCH (10:32)
[2020-07-26] MEDS: MINERAL OIL/PETROLAT/WATER TOPICAL CREAM 113 GM JAR TP SCH (10:32)
[2020-07-26] MEDS ORDERED: PT OWN MED DRAWER 7, Y5N ONE (17:35)
[2020-07-26] MEDS: NICOTINE POLACRILEX 2 MG GUM BC PRN (19:36)
[2020-07-26] MEDS: SUVOREXANT 10 MG TABLET PO PRN (21:26)
[2020-07-26] MEDS: DIVALPROEX SODIUM 500 MG TABLET E.C. PO SCH (21:27)
[2020-07-26] MEDS: THIAMINE HCL 100 MG TABLET (FP) PO SCH (21:28)
[2020-07-27] MEDS ORDERED: METHADONE HCL 10 MG TABLET ONE (03:49)
[2020-07-27] MEDS ORDERED: METHADONE HCL 40 MG DISPERSABLE TABLET ONE (03:49)
[2020-07-27] MEDS: METHADONE 80 MG, METHADONE 20 MG PO SCH (06:08)
[2020-07-27] MEDS: NICOTINE 14 MG/24 HOURS TOPICAL PATCH TD SCH (09:36)
[2020-07-27] MEDS: hydrOXYzine PAMOATE 50 MG CAPSULE (FP) PO PRN ×2 (09:36→21:09)
[2020-07-27] MEDS: MINERAL OIL/PETROLAT/WATER TOPICAL CREAM 113 GM JAR TP SCH (09:36)
[2020-07-27] MEDS: PRENATAL VITAMINS W/ FOLIC ACID TABLET (FP) PO SCH (09:36)
[2020-07-27] MEDS: NICOTINE POLACRILEX 2 MG GUM BC PRN (09:38)
[2020-07-27] MEDS: TOLNAFTATE 1% CREAM 15 GM TUBE TP SCH ×2 (11:56→21:08)
[2020-07-27] MEDS: THIAMINE HCL 100 MG TABLET (FP) PO SCH (21:07)
[2020-07-27] MEDS: DIVALPROEX SODIUM 500 MG TABLET E.C. PO SCH (21:08)
[2020-07-27] MEDS: SUVOREXANT 10 MG TABLET PO PRN (21:09)
[2020-07-28] MEDS ORDERED: METHADONE 80 MG, METHADONE 20 MG PO SCH (06:00)
[2020-07-28] MEDS ORDERED: METHADONE HCL 40 MG DISPERSABLE TABLET ONE (06:07)
[2020-07-28] MEDS ORDERED: METHADONE HCL 10 MG TABLET ONE (06:07)
[2020-07-28] MEDS: hydrOXYzine PAMOATE 50 MG CAPSULE (FP) PO PRN (06:22)
[2020-07-28] MEDS: PRENATAL VITAMINS W/ FOLIC ACID TABLET (FP) PO SCH (10:02)
[2020-07-28] MEDS: NICOTINE 14 MG/24 HOURS TOPICAL PATCH TD SCH (10:02)
[2020-07-28] MEDS: TOLNAFTATE 1% CREAM 15 GM TUBE TP SCH (10:02)
[2020-07-28] MEDS: NICOTINE POLACRILEX 2 MG GUM BC PRN (10:03)
[2020-07-28] MEDS: MINERAL OIL/PETROLAT/WATER TOPICAL CREAM 113 GM JAR TP SCH (10:06)
[2020-07-28 12:23] VITALS: BP 90/59; PULSE 78; TEMP 98.4
== END 2020-07-28 18:20 | disposition left against medical advice (07) | DRG 770 ==
LOC: YASAS 18:20 → Y6N 20:23 → Y3W 21:18 → UNDODISIN 07-28 15:28
PROVIDERS: ADMIT Allergy & Immunology; ATTEND Allergy & Immunology
PROC: HZ42ZZZ Group Counseling for Substance Abuse Treatment, Cognitive-Behavioral (ICD-10-PCS; principal; 2020-07-14)
DX: F10.20 Alcohol dependence, uncomplicated (principal); F11.20 Opioid dependence, uncomplicated; F14.20 Cocaine dependence, uncomplicated; F13.20 Sedative, hypnotic or anxiolytic dependence, uncomplicated; F17.210 Nicotine dependence, cigarettes, uncomplicated; F19.282 Other psychoactive substance dependence with psychoactive substance-induced sleep disorder; F19.24 Other psychoactive substance dependence with psychoactive substance-induced mood disorder; F31.9 Bipolar disorder, unspecified; F43.10 Post-traumatic stress disorder, unspecified; L85.3 Xerosis cutis; M54.5 Low back pain; G89.29 Other chronic pain; B18.2 Chronic viral hepatitis C; Z62.810 Personal history of physical and sexual abuse in childhood; Z88.0 Allergy status to penicillin; S61.412A Laceration without foreign body of left hand, initial encounter; W25.XXXA Contact with sharp glass, initial encounter; Y93.89 Activity, other specified; Y92.238 Other place in hospital as the place of occurrence of the external cause; Y99.8 Other external cause status
CPT/HCPCS: 36415; 80053; 80164; 81003; 82947; 82962; 85027; 86780; C9803; U0003; U0005

== ENCOUNTER 2020-07-28 12:56 | Emergency (ER) | payer OTHER ==
[2020-07-28 13:10] VITALS: BP 103/69; PULSE 61; TEMP 97; BMI 22.9
== END 2020-07-28 17:50 | disposition home or self-care (01) ==
LOC: JERFT 12:56
DX: F11.20 Opioid dependence, uncomplicated (principal); S60.512A Abrasion of left hand, initial encounter; S69.92XA Unspecified injury of left wrist, hand and finger(s), initial encounter
CPT/HCPCS: 73130-TC-LT-FY; 99283-25

== ENCOUNTER 2020-10-07 15:15 | Inpatient (IN) | payer OTHER ==
[2020-10-07 19:29] VITALS: BMI 22.4
[2020-10-07] MEDS ORDERED: NICOTINE 10 MG CARTRIDGE (INHALER) IH PRN (19:55)
[2020-10-07] MEDS ORDERED: ACETAMINOPHEN 325 MG TABLET (FP) PO PRN (19:55)
[2020-10-07] MEDS ORDERED: LORazepam 1 MG TABLET PO PRN (19:55)
[2020-10-07] MEDS ORDERED: METHOCARBAMOL 500 MG TABLET PO PRN (19:55)
[2020-10-07] MEDS ORDERED: MAGNESIUM CITRATE 300 ML BOTTLE PO PRN (19:55)
[2020-10-07] MEDS ORDERED: MAGNESIUM HYDROX 2400MG/30ML ORAL SUSPENSION 30 ML CUP PO PRN (19:55)
[2020-10-07] MEDS ORDERED: BISMUTH SUBSALICYLATE 524 MG/30 ML PO PRN (19:55)
[2020-10-07] MEDS ORDERED: ONDANSETRON *ODT* 4 MG TABLET SL PRN (19:55)
[2020-10-07] MEDS ORDERED: IBUPROFEN 400 MG TABLET (FP) PO PRN (19:55)
[2020-10-07] MEDS ORDERED: NICOTINE POLACRILEX 4 MG GUM BUC PRN (19:55)
[2020-10-07] MEDS ORDERED: MAG HYDROX/AL HYDROX/SIMETH 30 ML UNIT-DOSE CUP PO PRN (19:55)
[2020-10-07] MEDS ORDERED: MENTHOL/PHENOL 1 EACH UD MM PRN (19:55)
[2020-10-07] MEDS ORDERED: MELATONIN 5 MG TABLETS PO SCH (22:00)
[2020-10-07] MEDS: hydrOXYzine PAMOATE 25 MG CAPSULE (FP) PO SCH (22:32)
[2020-10-07] MEDS: LORazepam 2 MG TABLET PO SCH (22:32)
[2020-10-07] MEDS: THIAMINE HCL 100 MG TABLET (FP) PO SCH (22:32)
[2020-10-07] MEDS: PRENATAL VITAMINS W/ FOLIC ACID TABLET (FP) PO SCH (22:33)
[2020-10-07] MEDS: ACETAMINOPHEN 325 MG TABLET (FP) PO PRN (22:34)
[2020-10-08] MEDS: hydrOXYzine PAMOATE 25 MG CAPSULE (FP) PO SCH ×5 (06:49→22:23)
[2020-10-08] MEDS: LORazepam 2 MG TABLET PO SCH ×4 (06:49→22:25)
[2020-10-08] MEDS: ACETAMINOPHEN 325 MG TABLET (FP) PO PRN (06:51)
[2020-10-08] MEDS ORDERED: methaDONE HCL 10 MG TABLET PO SCH (09:30)
[2020-10-08] MEDS ORDERED: methaDONE HCL 10 MG TABLET ONE (10:28)
[2020-10-08] MEDS ORDERED: methaDONE HCL 40 MG DISPERSABLE TABLET ONE (10:29)
[2020-10-08] MEDS: PRENATAL VITAMINS W/ FOLIC ACID TABLET (FP) PO SCH (10:29)
[2020-10-08] MEDS: methaDONE 80 MG, methaDONE 20 MG PO SCH (10:30)
[2020-10-08] MEDS ORDERED: SUVOREXANT 10 MG TABLET PO PRN (11:33)
[2020-10-08] MEDS ORDERED: DIVALPROEX SODIUM 500 MG TABLET E.C. PO SCH (22:00)
[2020-10-08] MEDS: THIAMINE HCL 100 MG TABLET (FP) PO SCH (22:23)
[2020-10-09] MEDS ORDERED: LORazepam 1 MG TABLET PO SCH (05:00)
[2020-10-09] MEDS ORDERED: methaDONE HCL 40 MG DISPERSABLE TABLET ONE (05:07)
[2020-10-09] MEDS ORDERED: methaDONE HCL 10 MG TABLET ONE (05:07)
[2020-10-09] MEDS: methaDONE 80 MG, methaDONE 20 MG PO SCH (06:15)
[2020-10-09] MEDS: hydrOXYzine PAMOATE 25 MG CAPSULE (FP) PO SCH (06:16)
[2020-10-09 08:58] VITALS: PULSE 75
[2020-10-09 10:05] VITALS: BP 109/63; TEMP 97.3
[2020-10-10] MEDS ORDERED: LORazepam 0.5 MG TABLET PO PRN
[2020-10-10] MEDS ORDERED: LORazepam 0.5 MG TABLET PO SCH (05:00)
[2020-10-11] MEDS ORDERED: LORazepam 0.5 MG TABLET PO ONE (05:00)
== END 2020-10-09 10:05 | disposition left against medical advice (07) | DRG 773 ==
LOC: YASAS 15:15 → Y3N 19:26 → UNDOADMIN 19:26 → Y3N 20:00
PROVIDERS: ADMIT Allergy & Immunology; ATTEND Allergy & Immunology
PROC: HZ2ZZZZ Detoxification Services for Substance Abuse Treatment (ICD-10-PCS; principal; 2020-10-07)
DX: F10.230 Alcohol dependence with withdrawal, uncomplicated (principal); F13.230 Sedative, hypnotic or anxiolytic dependence with withdrawal, uncomplicated; F11.20 Opioid dependence, uncomplicated; F14.20 Cocaine dependence, uncomplicated; F12.20 Cannabis dependence, uncomplicated; F17.210 Nicotine dependence, cigarettes, uncomplicated; F19.280 Other psychoactive substance dependence with psychoactive substance-induced anxiety disorder; F19.24 Other psychoactive substance dependence with psychoactive substance-induced mood disorder; F31.9 Bipolar disorder, unspecified; F41.8 Other specified anxiety disorders; G47.00 Insomnia, unspecified; Z62.810 Personal history of physical and sexual abuse in childhood; Z86.19 Personal history of other infectious and parasitic diseases
CPT/HCPCS: 93005; 93010; C9803; U0003; U0005

== ENCOUNTER 2020-11-09 15:19 | Inpatient (IN) | payer OTHER ==
[2020-11-09 18:51] VITALS: BMI 23.6
[2020-11-09] MEDS ORDERED: MAGNESIUM HYDROX 2400MG/30ML ORAL SUSPENSION 30 ML CUP PO PRN (22:10)
[2020-11-09] MEDS ORDERED: BISMUTH SUBSALICYLATE 524 MG/30 ML PO PRN (22:10)
[2020-11-09] MEDS ORDERED: IBUPROFEN 400 MG TABLET (FP) PO PRN (22:10)
[2020-11-09] MEDS ORDERED: MENTHOL/PHENOL 1 EACH UD MM PRN (22:10)
[2020-11-09] MEDS ORDERED: MAGNESIUM CITRATE 300 ML BOTTLE PO PRN (22:10)
[2020-11-09] MEDS ORDERED: ONDANSETRON *ODT* 4 MG TABLET SL PRN (22:10)
[2020-11-09] MEDS ORDERED: METHOCARBAMOL 500 MG TABLET PO PRN (22:10)
[2020-11-10] MEDS ORDERED: hydrOXYzine PAMOATE 25 MG CAPSULE (FP) PO ONE (07:02)
[2020-11-10] MEDS ORDERED: ACETAMINOPHEN 325 MG TABLET (FP) ONE (07:13)
[2020-11-10] MEDS: hydrOXYzine PAMOATE 25 MG CAPSULE (FP) PO PRN (07:20)
[2020-11-10] MEDS: ACETAMINOPHEN 325 MG TABLET (FP) PO PRN (07:53)
[2020-11-10 08:25] LABS: HEMATOCRIT 38.8 % (35.4-49); HEMOGLOBIN 13.1 GM/dL (11.7-16.9); MCH 28.3 pg (25.7-33.7); MCHC 33.9 g/dl (32.0-35.9); MEAN CELL VOLUME 83.6 fl (80-96); MEAN PLT VOLUME 8.2 fl (7.5-11.1); PLATELET COUNT 227 10^3/uL (134-434); RBC 4.64 M/mm3 (4.00-5.60); RDW 16.8 % (11.9-15.9); WHITE BLOOD COUNT 5.6 K/mm3 (4.0-10.0)
[2020-11-10 09:19] LABS: ALBUMIN 3.2 g/dl (3.4-5.0); BLOOD UREA NITROGEN 11.9 mg/dL (7-18); CALCIUM 8.7 mg/dL (8.5-10.1)
[2020-11-10 09:22] LABS: CREATININE 0.8 mg/dL (0.55-1.3)
[2020-11-10 09:23] LABS: BILIRUBIN,TOTAL 0.5 mg/dL (0.2-1); TOT PROT 6.7 g/dl (6.4-8.2)
[2020-11-10] MEDS ORDERED: methaDONE HCL 10 MG TABLET ONE (09:44)
[2020-11-10] MEDS ORDERED: methaDONE HCL 40 MG DISPERSABLE TABLET ONE (09:45)
[2020-11-10] MEDS ORDERED: methaDONE HCL 10 MG TABLET PO SCH (09:45)
[2020-11-10] MEDS ORDERED: methaDONE 80 MG, methaDONE 20 MG PO ONE (09:45)
[2020-11-10] MEDS: PRENATAL VITAMINS W/ FOLIC ACID TABLET (FP) PO SCH (09:50)
[2020-11-10] MEDS: diazePAM 5 MG TABLET PO SCH ×3 (10:02→22:09)
[2020-11-10] MEDS: THIAMINE HCL 100 MG TABLET (FP) PO SCH (22:09)
[2020-11-10] MEDS: MELATONIN 5 MG TABLETS PO SCH (22:09)
[2020-11-11] MEDS ORDERED: methaDONE HCL 10 MG TABLET ONE (04:08)
[2020-11-11] MEDS ORDERED: methaDONE HCL 40 MG DISPERSABLE TABLET ONE (04:08)
[2020-11-11] MEDS: methaDONE 80 MG, methaDONE 20 MG PO SCH (05:35)
[2020-11-11] MEDS: diazePAM 5 MG TABLET PO SCH ×4 (05:36→22:42)
[2020-11-11] MEDS: ACETAMINOPHEN 325 MG TABLET (FP) PO PRN ×2 (05:37→18:01)
[2020-11-11] MEDS: PRENATAL VITAMINS W/ FOLIC ACID TABLET (FP) PO SCH (10:22)
[2020-11-11] MEDS: hydrOXYzine PAMOATE 25 MG CAPSULE (FP) PO PRN ×2 (10:23→14:51)
[2020-11-11] MEDS: NICOTINE POLACRILEX 2 MG GUM BUC PRN (10:24)
[2020-11-11] MEDS: THIAMINE HCL 100 MG TABLET (FP) PO SCH (22:40)
[2020-11-11] MEDS: MELATONIN 5 MG TABLETS PO SCH (22:40)
[2020-11-12] MEDS ORDERED: methaDONE HCL 10 MG TABLET ONE ×2 (05:03→06:18)
[2020-11-12] MEDS ORDERED: methaDONE HCL 40 MG DISPERSABLE TABLET ONE ×2 (05:04→06:19)
[2020-11-12] MEDS: methaDONE 80 MG, methaDONE 20 MG PO SCH (06:08)
[2020-11-12] MEDS: diazePAM 5 MG TABLET PO SCH ×3 (06:09→22:44)
[2020-11-12] MEDS: PRENATAL VITAMINS W/ FOLIC ACID TABLET (FP) PO SCH (10:54)
[2020-11-12] MEDS: diazePAM 5 MG TABLET PO PRN ×2 (10:54→20:03)
[2020-11-12] MEDS: NICOTINE POLACRILEX 2 MG GUM BUC PRN (15:57)
[2020-11-12] MEDS: MAG HYDROX/AL HYDROX/SIMETH 30 ML UNIT-DOSE CUP PO PRN (18:12)
[2020-11-12] MEDS: MELATONIN 5 MG TABLETS PO SCH (22:44)
[2020-11-12] MEDS: THIAMINE HCL 100 MG TABLET (FP) PO SCH (22:44)
[2020-11-13] MEDS: hydrOXYzine PAMOATE 25 MG CAPSULE (FP) PO PRN ×2 (02:03→22:02)
[2020-11-13] MEDS ORDERED: methaDONE HCL 40 MG DISPERSABLE TABLET ONE (04:24)
[2020-11-13] MEDS ORDERED: methaDONE HCL 10 MG TABLET ONE (04:24)
[2020-11-13] MEDS: methaDONE 80 MG, methaDONE 20 MG PO SCH (05:30)
[2020-11-13] MEDS: diazePAM 5 MG TABLET PO SCH ×2 (05:30→18:31)
[2020-11-13] MEDS: NICOTINE POLACRILEX 2 MG GUM BUC PRN ×2 (07:57→10:53)
[2020-11-13] MEDS: PRENATAL VITAMINS W/ FOLIC ACID TABLET (FP) PO SCH (10:15)
[2020-11-13] MEDS: MAG HYDROX/AL HYDROX/SIMETH 30 ML UNIT-DOSE CUP PO PRN (17:12)
[2020-11-13] MEDS: ACETAMINOPHEN 325 MG TABLET (FP) PO PRN (18:32)
[2020-11-13] MEDS: MELATONIN 5 MG TABLETS PO SCH (22:03)
[2020-11-13] MEDS: THIAMINE HCL 100 MG TABLET (FP) PO SCH (22:03)
[2020-11-14] MEDS ORDERED: methaDONE HCL 40 MG DISPERSABLE TABLET ONE (03:55)
[2020-11-14] MEDS ORDERED: methaDONE HCL 10 MG TABLET ONE (03:55)
[2020-11-14] MEDS: methaDONE 80 MG, methaDONE 20 MG PO SCH (05:29)
[2020-11-14] MEDS ORDERED: diazePAM 5 MG TABLET PO ONE (06:00)
[2020-11-14 09:45] VITALS: BP 110/68; PULSE 89; TEMP 97.3
[2020-11-14] MEDS: PRENATAL VITAMINS W/ FOLIC ACID TABLET (FP) PO SCH (10:17)
== END 2020-11-14 09:19 | disposition home or self-care (01) | DRG 773 ==
LOC: YASAS 15:19 → Y6N 11-10 09:18 → Y3N 11-11 16:36
PROVIDERS: ADMIT Allergy & Immunology; ATTEND Allergy & Immunology
PROC: HZ2ZZZZ Detoxification Services for Substance Abuse Treatment (ICD-10-PCS; principal; 2020-11-10)
DX: F10.230 Alcohol dependence with withdrawal, uncomplicated (principal); F11.20 Opioid dependence, uncomplicated; F14.20 Cocaine dependence, uncomplicated; F13.20 Sedative, hypnotic or anxiolytic dependence, uncomplicated; F12.20 Cannabis dependence, uncomplicated; F17.210 Nicotine dependence, cigarettes, uncomplicated; F31.9 Bipolar disorder, unspecified; F41.9 Anxiety disorder, unspecified; Z88.0 Allergy status to penicillin
CPT/HCPCS: 36415; 80053; 85027; 86780; C9803; U0003; U0005

== ENCOUNTER 2020-11-24 12:29 | Inpatient (IN) | payer OTHER ==
[2020-11-24 14:20] VITALS: BMI 23.2
[2020-11-24] MEDS ORDERED: MAGNESIUM CITRATE 300 ML BOTTLE PO PRN (14:52)
[2020-11-24] MEDS ORDERED: ONDANSETRON *ODT* 4 MG TABLET SL PRN (14:52)
[2020-11-24] MEDS ORDERED: NICOTINE 10 MG CARTRIDGE (INHALER) IH PRN (14:52)
[2020-11-24] MEDS ORDERED: NICOTINE POLACRILEX 4 MG GUM BUC PRN (14:52)
[2020-11-24] MEDS ORDERED: METHOCARBAMOL 500 MG TABLET PO PRN (14:52)
[2020-11-24] MEDS ORDERED: MAGNESIUM HYDROX 2400MG/30ML ORAL SUSPENSION 30 ML CUP PO PRN (14:52)
[2020-11-24] MEDS ORDERED: MAG HYDROX/AL HYDROX/SIMETH 30 ML UNIT-DOSE CUP PO PRN (14:52)
[2020-11-24] MEDS ORDERED: BISMUTH SUBSALICYLATE 524 MG/30 ML PO PRN (14:52)
[2020-11-24] MEDS ORDERED: ACETAMINOPHEN 325 MG TABLET (FP) PO PRN (14:52)
[2020-11-24] MEDS ORDERED: IBUPROFEN 400 MG TABLET (FP) PO PRN ×2 (14:52)
[2020-11-24] MEDS ORDERED: MENTHOL/PHENOL 1 EACH UD MM PRN (14:52)
[2020-11-24] MEDS ORDERED: MELATONIN 5 MG TABLETS PO SCH (22:00)
[2020-11-24] MEDS ORDERED: THIAMINE HCL 100 MG TABLET (FP) PO SCH (22:00)
[2020-11-24] MEDS ORDERED: SUVOREXANT 10 MG TABLET PO PRN (22:00)
[2020-11-24] MEDS: ACETAMINOPHEN 325 MG TABLET (FP) PO PRN (22:34)
[2020-11-24] MEDS: hydrOXYzine PAMOATE 25 MG CAPSULE (FP) PO PRN (22:34)
[2020-11-25] MEDS ORDERED: methaDONE HCL 10 MG TABLET ONE (04:24)
[2020-11-25] MEDS ORDERED: methaDONE HCL 40 MG DISPERSABLE TABLET ONE (04:25)
[2020-11-25] MEDS ORDERED: methaDONE 80 MG, methaDONE 20 MG PO SCH (06:00)
[2020-11-25] MEDS ORDERED: methaDONE HCL 40 MG DISPERSABLE TABLET PO SCH (06:00)
[2020-11-25] MEDS: hydrOXYzine PAMOATE 25 MG CAPSULE (FP) PO PRN ×2 (06:18→11:53)
[2020-11-25] MEDS: ACETAMINOPHEN 325 MG TABLET (FP) PO PRN (06:18)
[2020-11-25] MEDS ORDERED: PRENATAL VITAMINS W/ FOLIC ACID TABLET (FP) PO SCH (10:00)
[2020-11-25 10:07] LABS: HEMATOCRIT 36.9 % (35.4-49); HEMOGLOBIN 12.5 GM/dL (11.7-16.9); MCH 28.2 pg (25.7-33.7); MCHC 33.8 g/dl (32.0-35.9); MEAN CELL VOLUME 83.4 fl (80-96); MEAN PLT VOLUME 8.1 fl (7.5-11.1); PLATELET COUNT 219 10^3/uL (134-434); RBC 4.42 M/mm3 (4.00-5.60); RDW 17.4 % (11.9-15.9); WHITE BLOOD COUNT 5.4 K/mm3 (4.0-10.0)
[2020-11-25 10:29] LABS: CALCIUM 8.3 mg/dL (8.5-10.1)
[2020-11-25 10:30] LABS: BLOOD UREA NITROGEN 8.6 mg/dL (7-18)
[2020-11-25 10:33] LABS: CREATININE 0.7 mg/dL (0.55-1.3)
[2020-11-25 10:34] LABS: BILIRUBIN,TOTAL 0.4 mg/dL (0.2-1); TOT PROT 6.2 g/dl (6.4-8.2)
[2020-11-25 13:16] VITALS: BP 107/68; PULSE 61; TEMP 97.7
== END 2020-11-25 15:21 | disposition home or self-care (01) | DRG 773 ==
LOC: YASAS 12:29 → UNDOADMIN 14:08 → Y3N 14:08
PROVIDERS: ADMIT Allergy & Immunology; ATTEND Allergy & Immunology
PROC: HZ2ZZZZ Detoxification Services for Substance Abuse Treatment (ICD-10-PCS; principal; 2020-11-24)
DX: F10.230 Alcohol dependence with withdrawal, uncomplicated (principal); F11.20 Opioid dependence, uncomplicated; F13.230 Sedative, hypnotic or anxiolytic dependence with withdrawal, uncomplicated; F14.20 Cocaine dependence, uncomplicated; F12.20 Cannabis dependence, uncomplicated; F17.210 Nicotine dependence, cigarettes, uncomplicated; F19.282 Other psychoactive substance dependence with psychoactive substance-induced sleep disorder; F19.24 Other psychoactive substance dependence with psychoactive substance-induced mood disorder; Z62.810 Personal history of physical and sexual abuse in childhood; Z86.59 Personal history of other mental and behavioral disorders; Z88.0 Allergy status to penicillin; M54.50 Low back pain, unspecified; G89.29 Other chronic pain
CPT/HCPCS: 36415; 80053; 85027; 86780; C9803; U0003; U0005

== ENCOUNTER 2020-12-15 16:13 | Inpatient (IN) | payer OTHER ==
[2020-12-15 19:23] VITALS: BMI 24.2
[2020-12-15] MEDS ORDERED: guaiFENesin 200 MG/10 ML 10 ML UNIT-DOSE CUPS PO PRN (21:10)
[2020-12-15] MEDS ORDERED: MAGNESIUM CITRATE 300 ML BOTTLE PO PRN (21:10)
[2020-12-15] MEDS ORDERED: DICYCLOMINE HCL 10 MG CAPSULE PO PRN (21:10)
[2020-12-15] MEDS ORDERED: NALOXONE HCL 0.4 MG/ML VIAL IM PRN (21:10)
[2020-12-15] MEDS ORDERED: NALOXONE (NARCAN) HCL 4 MG/0.1 ML SPRAY NS PRN (21:10)
[2020-12-15] MEDS ORDERED: METHOCARBAMOL 500 MG TABLET PO PRN (21:10)
[2020-12-15] MEDS ORDERED: P-EPHED 60MG/TRIPROLIDI 2.5MG TABLET PO PRN (21:10)
[2020-12-15] MEDS ORDERED: BISMUTH SUBSALICYLATE 524 MG/30 ML PO PRN (21:10)
[2020-12-15] MEDS ORDERED: ONDANSETRON *ODT* 4 MG TABLET SL PRN (21:10)
[2020-12-15] MEDS ORDERED: IBUPROFEN 400 MG TABLET (FP) PO PRN (21:10)
[2020-12-15] MEDS ORDERED: MENTHOL/PHENOL 1 EACH UD MM PRN (21:10)
[2020-12-15] MEDS ORDERED: MAGNESIUM HYDROX 2400MG/30ML ORAL SUSPENSION 30 ML CUP PO PRN (21:10)
[2020-12-15] MEDS ORDERED: ACETAMINOPHEN 325 MG TABLET (FP) PO PRN ×2 (21:10)
[2020-12-15] MEDS ORDERED: MAG HYDROX/AL HYDROX/SIMETH 30 ML UNIT-DOSE CUP PO PRN (21:10)
[2020-12-15] MEDS ORDERED: NICOTINE 10 MG CARTRIDGE (INHALER) IH PRN (21:10)
[2020-12-16] MEDS ORDERED: hydrOXYzine PAMOATE 25 MG CAPSULE (FP) PO ONE ×2 (01:17→05:46)
[2020-12-16] MEDS: MELATONIN 5 MG TABLETS PO SCH ×2 (01:19→22:20)
[2020-12-16] MEDS: hydrOXYzine PAMOATE 25 MG CAPSULE (FP) PO SCH ×3 (01:20→23:51)
[2020-12-16] MEDS: THIAMINE HCL 100 MG TABLET (FP) PO SCH ×2 (01:20→22:20)
[2020-12-16] MEDS ORDERED: ACETAMINOPHEN 325 MG TABLET (FP) ONE (06:15)
[2020-12-16] MEDS ORDERED: diazePAM 5 MG TABLET PO PRN (08:57)
[2020-12-16] MEDS ORDERED: methaDONE HCL 10 MG TABLET PO SCH (09:00)
[2020-12-16] MEDS ORDERED: methaDONE 80 MG, methaDONE 20 MG PO ONE (10:45)
[2020-12-16] MEDS ORDERED: methaDONE HCL 10 MG TABLET ONE (11:40)
[2020-12-16] MEDS ORDERED: methaDONE HCL 40 MG DISPERSABLE TABLET ONE (11:41)
[2020-12-16 11:43] LABS: CALCIUM 8.3 mg/dL (8.5-10.1)
[2020-12-16] MEDS: PRENATAL VITAMINS W/ FOLIC ACID TABLET (FP) PO SCH (11:43)
[2020-12-16 11:44] LABS: ALBUMIN 2.8 g/dl (3.4-5.0)
[2020-12-16] MEDS: hydrOXYzine PAMOATE 25 MG CAPSULE (FP) PO PRN ×3 (11:44→22:20)
[2020-12-16] MEDS: diazePAM 5 MG TABLET PO SCH ×3 (11:45→22:21)
[2020-12-16 11:47] LABS: CREATININE 0.7 mg/dL (0.55-1.3)
[2020-12-16 11:48] LABS: BILIRUBIN,TOTAL 0.3 mg/dL (0.2-1); TOT PROT 5.9 g/dl (6.4-8.2)
[2020-12-16] MEDS: NICOTINE 14 MG/24 HOURS TOPICAL PATCH TD SCH (11:49)
[2020-12-16 11:50] LABS: HEMATOCRIT 34.7 % (35.4-49); HEMOGLOBIN 11.8 GM/dL (11.7-16.9); MCH 28.7 pg (25.7-33.7); MCHC 33.9 g/dl (32.0-35.9); MEAN CELL VOLUME 84.7 fl (80-96); MEAN PLT VOLUME 8.7 fl (7.5-11.1); PLATELET COUNT 206 10^3/uL (134-434); RDW 18.9 % (11.9-15.9); WHITE BLOOD COUNT 4.9 K/mm3 (4.0-10.0)
[2020-12-17] MEDS ORDERED: methaDONE HCL 10 MG TABLET ONE (04:28)
[2020-12-17] MEDS ORDERED: methaDONE HCL 40 MG DISPERSABLE TABLET ONE (04:28)
[2020-12-17] MEDS: diazePAM 5 MG TABLET PO SCH ×4 (05:07→22:00)
[2020-12-17] MEDS: methaDONE 80 MG, methaDONE 20 MG PO SCH (05:07)
[2020-12-17] MEDS: NICOTINE 14 MG/24 HOURS TOPICAL PATCH TD SCH (10:21)
[2020-12-17] MEDS: PRENATAL VITAMINS W/ FOLIC ACID TABLET (FP) PO SCH (10:21)
[2020-12-17] MEDS: MELATONIN 5 MG TABLETS PO SCH (22:01)
[2020-12-17] MEDS: THIAMINE HCL 100 MG TABLET (FP) PO SCH (22:01)
[2020-12-18] MEDS ORDERED: methaDONE HCL 10 MG TABLET ONE (04:07)
[2020-12-18] MEDS ORDERED: methaDONE HCL 40 MG DISPERSABLE TABLET ONE (04:08)
[2020-12-18] MEDS: methaDONE 80 MG, methaDONE 20 MG PO SCH (05:05)
[2020-12-18] MEDS: diazePAM 5 MG TABLET PO SCH ×3 (05:05→22:06)
[2020-12-18] MEDS: PRENATAL VITAMINS W/ FOLIC ACID TABLET (FP) PO SCH (10:11)
[2020-12-18] MEDS: hydrOXYzine PAMOATE 25 MG CAPSULE (FP) PO PRN ×2 (10:12→13:37)
[2020-12-18] MEDS: NICOTINE 14 MG/24 HOURS TOPICAL PATCH TD SCH (10:15)
[2020-12-18] MEDS: THIAMINE HCL 100 MG TABLET (FP) PO SCH (22:06)
[2020-12-18] MEDS: MELATONIN 5 MG TABLETS PO SCH (22:06)
[2020-12-19] MEDS ORDERED: methaDONE HCL 10 MG TABLET ONE (04:06)
[2020-12-19] MEDS ORDERED: methaDONE HCL 40 MG DISPERSABLE TABLET ONE (04:07)
[2020-12-19] MEDS: diazePAM 5 MG TABLET PO SCH ×2 (05:04→17:28)
[2020-12-19] MEDS: methaDONE 80 MG, methaDONE 20 MG PO SCH (05:04)
[2020-12-19] MEDS: hydrOXYzine PAMOATE 25 MG CAPSULE (FP) PO PRN ×2 (07:53→22:26)
[2020-12-19] MEDS: PRENATAL VITAMINS W/ FOLIC ACID TABLET (FP) PO SCH (10:13)
[2020-12-19] MEDS: NICOTINE 14 MG/24 HOURS TOPICAL PATCH TD SCH (10:14)
[2020-12-19] MEDS: THIAMINE HCL 100 MG TABLET (FP) PO SCH (22:26)
[2020-12-19] MEDS: MELATONIN 5 MG TABLETS PO SCH (22:26)
[2020-12-20] MEDS ORDERED: methaDONE HCL 40 MG DISPERSABLE TABLET ONE (04:22)
[2020-12-20] MEDS ORDERED: methaDONE HCL 10 MG TABLET ONE (04:22)
[2020-12-20] MEDS: methaDONE 80 MG, methaDONE 20 MG PO SCH (05:11)
[2020-12-20] MEDS ORDERED: diazePAM 5 MG TABLET PO ONE (06:00)
[2020-12-20 09:03] VITALS: BP 115/77; PULSE 85; TEMP 96.8
[2020-12-20] MEDS: NICOTINE 14 MG/24 HOURS TOPICAL PATCH TD SCH (10:12)
[2020-12-20] MEDS: PRENATAL VITAMINS W/ FOLIC ACID TABLET (FP) PO SCH (10:12)
== END 2020-12-20 11:41 | disposition other institution (70) | DRG 773 ==
LOC: YASAS 16:13 → UNDOADMIN 21:28 → Y6N 21:28 → Y3N 12-16 10:02
PROVIDERS: ADMIT Allergy & Immunology; ATTEND Allergy & Immunology
PROC: HZ2ZZZZ Detoxification Services for Substance Abuse Treatment (ICD-10-PCS; principal; 2020-12-16)
DX: F10.230 Alcohol dependence with withdrawal, uncomplicated (principal); F11.20 Opioid dependence, uncomplicated; F13.230 Sedative, hypnotic or anxiolytic dependence with withdrawal, uncomplicated; F14.20 Cocaine dependence, uncomplicated; F12.20 Cannabis dependence, uncomplicated; F17.210 Nicotine dependence, cigarettes, uncomplicated; F19.24 Other psychoactive substance dependence with psychoactive substance-induced mood disorder; G47.00 Insomnia, unspecified; L90.5 Scar conditions and fibrosis of skin; Z91.14 Patient's other noncompliance with medication regimen; Z88.0 Allergy status to penicillin; Z56.0 Unemployment, unspecified; Z59.00 Homelessness unspecified
CPT/HCPCS: 36415; 80053; 85027; 86780; C9803; U0003; U0005

== ENCOUNTER 2021-03-29 18:04 | Inpatient (IN) | payer OTHER ==
[2021-03-29 19:26] VITALS: BMI 20.2
[2021-03-29] MEDS ORDERED: MAGNESIUM HYDROX 2400MG/30ML ORAL SUSPENSION 30 ML CUP PO PRN (21:00)
[2021-03-29] MEDS ORDERED: NICOTINE POLACRILEX 2 MG GUM BUC PRN (21:00)
[2021-03-29] MEDS ORDERED: MELATONIN 5 MG TABLETS PO PRN (21:00)
[2021-03-29] MEDS ORDERED: MENTHOL/PHENOL 1 EACH UD MM PRN (21:00)
[2021-03-29] MEDS ORDERED: ACETAMINOPHEN 325 MG TABLET (FP) PO PRN (21:00)
[2021-03-29] MEDS ORDERED: MAG HYDROX/AL HYDROX/SIMETH 30 ML UNIT-DOSE CUP PO PRN (21:00)
[2021-03-29] MEDS ORDERED: guaiFENesin 200 MG/10 ML 10 ML UNIT-DOSE CUPS PO PRN (21:00)
[2021-03-29] MEDS ORDERED: MAGNESIUM CITRATE 300 ML BOTTLE PO PRN (21:00)
[2021-03-29] MEDS ORDERED: BISMUTH SUBSALICYLATE 524 MG/30 ML PO PRN (21:00)
[2021-03-29] MEDS ORDERED: P-EPHED 60MG/TRIPROLIDI 2.5MG TABLET PO PRN (21:00)
[2021-03-29] MEDS ORDERED: ONDANSETRON *ODT* 4 MG TABLET SL PRN (21:00)
[2021-03-30] MEDS ORDERED: hydrOXYzine PAMOATE 25 MG CAPSULE (FP) PO ONE (01:14)
[2021-03-30] MEDS ORDERED: diazePAM 5 MG TABLET ONE (01:14)
[2021-03-30] MEDS ORDERED: ACETAMINOPHEN 325 MG TABLET (FP) ONE (01:17)
[2021-03-30] MEDS: hydrOXYzine PAMOATE 25 MG CAPSULE (FP) PO SCH ×3 (01:20→10:19)
[2021-03-30] MEDS: THIAMINE HCL 100 MG TABLET (FP) PO SCH ×2 (01:20→22:15)
[2021-03-30] MEDS: diazePAM 5 MG TABLET PO SCH ×5 (01:29→22:15)
[2021-03-30] MEDS: ACETAMINOPHEN 325 MG TABLET (FP) PO PRN (01:30)
[2021-03-30] MEDS: VITAMINS A AND D TOPICAL OINTMENT 60 GM TUBE TP SCH ×5 (01:51→23:04)
[2021-03-30] MEDS ORDERED: methaDONE HCL 10 MG TABLET PO ONE (10:04)
[2021-03-30] MEDS ORDERED: methaDONE 80 MG, methaDONE 20 MG PO ONE (10:07)
[2021-03-30 10:17] LABS: HEMATOCRIT 43.8 % (35.4-49); HEMOGLOBIN 14.6 GM/dL (11.7-16.9); MCH 28.7 pg (25.7-33.7); MCHC 33.4 g/dl (32.0-35.9); MEAN CELL VOLUME 85.8 fl (80-96); MEAN PLT VOLUME 8.3 fl (7.5-11.1); PLATELET COUNT 277 10^3/uL (134-434); RBC 5.11 M/mm3 (4.00-5.60); RDW 16.5 % (11.9-15.9)
[2021-03-30] MEDS: PRENATAL VITAMINS W/ FOLIC ACID TABLET (FP) PO SCH (10:19)
[2021-03-30] MEDS: METHOCARBAMOL 500 MG TABLET PO PRN (10:19)
[2021-03-30] MEDS ORDERED: methaDONE HCL 10 MG TABLET ONE (10:21)
[2021-03-30] MEDS ORDERED: methaDONE HCL 40 MG DISPERSABLE TABLET ONE (10:21)
[2021-03-30 10:22] LABS: BLOOD UREA NITROGEN 7.6 mg/dL (7-18); CALCIUM 8.8 mg/dL (8.5-10.1)
[2021-03-30] MEDS: IBUPROFEN 400 MG TABLET (FP) PO PRN (10:22)
[2021-03-30 10:23] LABS: ALBUMIN 3.8 g/dl (3.4-5.0)
[2021-03-30 10:26] LABS: CREATININE 0.8 mg/dL (0.55-1.3)
[2021-03-30 10:27] LABS: TOT PROT 7.4 g/dl (6.4-8.2)
[2021-03-30 10:33] LABS: BILIRUBIN,TOTAL 0.2 mg/dL (0.2-1)
[2021-03-30] MEDS: diazePAM 5 MG TABLET PO PRN (15:10)
[2021-03-30] MEDS ORDERED: hydrOXYzine PAMOATE 50 MG CAPSULE (FP) PO ONE (18:44)
[2021-03-30] MEDS: OLANZapine 10 MG TABLET PO SCH (22:15)
[2021-03-30] MEDS: hydrOXYzine PAMOATE 50 MG CAPSULE (FP) PO PRN (22:16)
[2021-03-31] MEDS ORDERED: methaDONE HCL 10 MG TABLET ONE (04:24)
[2021-03-31] MEDS ORDERED: methaDONE HCL 40 MG DISPERSABLE TABLET ONE (04:25)
[2021-03-31] MEDS: methaDONE 80 MG, methaDONE 20 MG PO SCH (05:33)
[2021-03-31] MEDS: diazePAM 5 MG TABLET PO SCH ×3 (05:33→22:31)
[2021-03-31] MEDS ORDERED: methaDONE HCL 10 MG TABLET PO SCH (06:00)
[2021-03-31] MEDS: VITAMINS A AND D TOPICAL OINTMENT 60 GM TUBE TP SCH ×3 (06:20→18:02)
[2021-03-31] MEDS: METHOCARBAMOL 500 MG TABLET PO PRN ×2 (10:14→22:30)
[2021-03-31] MEDS: IBUPROFEN 400 MG TABLET (FP) PO PRN (10:14)
[2021-03-31] MEDS: hydrOXYzine PAMOATE 50 MG CAPSULE (FP) PO PRN ×3 (10:18→22:31)
[2021-03-31] MEDS: PRENATAL VITAMINS W/ FOLIC ACID TABLET (FP) PO SCH (11:55)
[2021-03-31] MEDS: ACETAMINOPHEN 325 MG TABLET (FP) PO PRN ×3 (15:22→22:32)
[2021-03-31] MEDS: diazePAM 5 MG TABLET PO PRN (18:59)
[2021-03-31] MEDS: OLANZapine 10 MG TABLET PO SCH (22:29)
[2021-03-31] MEDS: THIAMINE HCL 100 MG TABLET (FP) PO SCH (22:30)
[2021-04-01] MEDS ORDERED: methaDONE HCL 40 MG DISPERSABLE TABLET ONE (03:11)
[2021-04-01] MEDS ORDERED: methaDONE HCL 10 MG TABLET ONE (03:11)
[2021-04-01] MEDS: methaDONE 80 MG, methaDONE 20 MG PO SCH (05:54)
[2021-04-01] MEDS: ACETAMINOPHEN 325 MG TABLET (FP) PO PRN (05:56)
[2021-04-01] MEDS: hydrOXYzine PAMOATE 50 MG CAPSULE (FP) PO PRN ×2 (05:58→10:12)
[2021-04-01] MEDS ORDERED: diazePAM 5 MG TABLET PO SCH (06:00)
[2021-04-01] MEDS: VITAMINS A AND D TOPICAL OINTMENT 60 GM TUBE TP SCH ×3 (07:10→14:22)
[2021-04-01] MEDS: PRENATAL VITAMINS W/ FOLIC ACID TABLET (FP) PO SCH (10:12)
[2021-04-01] MEDS: diazePAM 5 MG TABLET PO PRN (10:16)
[2021-04-01 14:55] VITALS: BP 123/56; PULSE 72; TEMP 98
[2021-04-02] MEDS ORDERED: diazePAM 5 MG TABLET PO ONE (06:00)
== END 2021-04-01 14:55 | disposition home or self-care (01) | DRG 773 ==
LOC: YASAS 18:04 → Y6N 03-30 00:05
PROVIDERS: ADMIT Allergy & Immunology; ATTEND Allergy & Immunology
PROC: HZ2ZZZZ Detoxification Services for Substance Abuse Treatment (ICD-10-PCS; principal; 2021-03-30)
DX: F10.230 Alcohol dependence with withdrawal, uncomplicated (principal); F11.20 Opioid dependence, uncomplicated; F14.20 Cocaine dependence, uncomplicated; F12.20 Cannabis dependence, uncomplicated; F17.210 Nicotine dependence, cigarettes, uncomplicated; F19.280 Other psychoactive substance dependence with psychoactive substance-induced anxiety disorder; F19.282 Other psychoactive substance dependence with psychoactive substance-induced sleep disorder; F19.24 Other psychoactive substance dependence with psychoactive substance-induced mood disorder; F43.10 Post-traumatic stress disorder, unspecified; K29.70 Gastritis, unspecified, without bleeding; M19.90 Unspecified osteoarthritis, unspecified site; M54.50 Low back pain, unspecified; G89.29 Other chronic pain; Z62.810 Personal history of physical and sexual abuse in childhood; R63.4 Abnormal weight loss; Z68.20 Body mass index [BMI] 20.0-20.9, adult; Z91.410 Personal history of adult physical and sexual abuse; Z86.19 Personal history of other infectious and parasitic diseases; Z88.0 Allergy status to penicillin; Z56.0 Unemployment, unspecified; Z59.01 Sheltered homelessness
CPT/HCPCS: 36415; 80053; 85027; 86780; C9803; U0003; U0005

== ENCOUNTER 2021-07-27 13:31 | Inpatient (IN) | payer OTHER ==
[2021-07-27 13:59] VITALS: BMI 24.1
[2021-07-27] MEDS ORDERED: NALOXONE HCL (KLOXXADO) 8 MG SPRAY NS PRN (14:20)
[2021-07-27] MEDS ORDERED: ONDANSETRON *ODT* 4 MG TABLET SL PRN (14:20)
[2021-07-27] MEDS ORDERED: MAGNESIUM CITRATE 300 ML BOTTLE PO PRN (14:20)
[2021-07-27] MEDS ORDERED: LOPERAMIDE HCL 2 MG CAPSULE PO PRN (14:20)
[2021-07-27] MEDS ORDERED: MAG HYDROX/AL HYDROX/SIMETH 30 ML UNIT-DOSE CUP PO PRN (14:20)
[2021-07-27] MEDS ORDERED: IBUPROFEN 400 MG TABLET (FP) PO PRN (14:20)
[2021-07-27] MEDS ORDERED: BISMUTH SUBSALICYLATE 262 MG/15 ML BTL PO PRN (14:20)
[2021-07-27] MEDS ORDERED: BENZOCAINE/MENTHOL (CHLORASEPTIC ) LOZENGE MM PRN (14:20)
[2021-07-27] MEDS ORDERED: MAGNESIUM HYDROX 2400MG/30ML ORAL SUSPENSION 30 ML CUP PO PRN (14:20)
[2021-07-27] MEDS ORDERED: IBUPROFEN 600 MG TABLET (FP) PO PRN (14:20)
[2021-07-27] MEDS ORDERED: DICYCLOMINE HCL 10 MG CAPSULE PO PRN (14:20)
[2021-07-27] MEDS ORDERED: NICOTINE 10 MG CARTRIDGE (INHALER) IH PRN (14:20)
[2021-07-27] MEDS ORDERED: ACETAMINOPHEN 325 MG TABLET (FP) PO PRN ×2 (14:20)
[2021-07-27] MEDS: NICOTINE 14 MG/24 HOURS TOPICAL PATCH TD SCH (15:37)
[2021-07-27] MEDS: PRENATAL VITAMINS W/ FOLIC ACID TABLET (FP) PO SCH (15:38)
[2021-07-27] MEDS: SULFAMETHOXAZOLE/TRIMETHOPRIM 800MG/160MG D.S. TABLET PO SCH (15:39)
[2021-07-27] MEDS: hydrOXYzine PAMOATE 25 MG CAPSULE (FP) PO SCH ×2 (17:52→22:08)
[2021-07-27] MEDS: THIAMINE HCL 100 MG TABLET (FP) PO SCH (22:08)
[2021-07-27] MEDS: OLANZapine 10 MG TABLET PO SCH (22:08)
[2021-07-27] MEDS: MELATONIN 5 MG TABLETS PO SCH (22:08)
[2021-07-27] MEDS: METHOCARBAMOL 500 MG TABLET PO PRN (22:08)
[2021-07-28] MEDS: SULFAMETHOXAZOLE/TRIMETHOPRIM 800MG/160MG D.S. TABLET PO SCH ×2 (02:32→15:12)
[2021-07-28] MEDS: hydrOXYzine PAMOATE 25 MG CAPSULE (FP) PO SCH ×5 (05:46→22:57)
[2021-07-28] MEDS ORDERED: methaDONE HCL 10 MG TABLET PO ONE (08:16)
[2021-07-28] MEDS ORDERED: methaDONE 80 MG, methaDONE 20 MG PO ONE (09:00)
[2021-07-28] MEDS ORDERED: methaDONE HCL 40 MG DISPERSABLE TABLET ONE (10:03)
[2021-07-28] MEDS ORDERED: methaDONE HCL 10 MG TABLET ONE (10:03)
[2021-07-28] MEDS: diazePAM 5 MG TABLET PO SCH ×3 (10:16→22:56)
[2021-07-28] MEDS: PRENATAL VITAMINS W/ FOLIC ACID TABLET (FP) PO SCH (10:17)
[2021-07-28] MEDS: METHOCARBAMOL 500 MG TABLET PO PRN (10:17)
[2021-07-28] MEDS: NICOTINE 14 MG/24 HOURS TOPICAL PATCH TD SCH (10:17)
[2021-07-28 12:52] LABS: HEMATOCRIT 40.5 % (35.4-49); HEMOGLOBIN 13.4 GM/dL (11.7-16.9); MCH 29.7 pg (25.7-33.7); MCHC 33.2 g/dl (32.0-35.9); MEAN CELL VOLUME 89.5 fl (80-96); MEAN PLT VOLUME 7.5 fl (7.5-11.1); PLATELET COUNT 416 10^3/uL (134-434); RBC 4.53 M/mm3 (4.00-5.60)
[2021-07-28 13:01] LABS: ALBUMIN 3.4 g/dl (3.4-5.0); BLOOD UREA NITROGEN 7.6 mg/dL (7-18); CALCIUM 8.6 mg/dL (8.5-10.1)
[2021-07-28 13:05] LABS: BILIRUBIN,TOTAL 0.6 mg/dL (0.2-1); CREATININE 0.8 mg/dL (0.55-1.3)
[2021-07-28 13:06] LABS: TOT PROT 7.7 g/dl (6.4-8.2)
[2021-07-28] MEDS: diazePAM 5 MG TABLET PO PRN ×2 (14:22→18:40)
[2021-07-28] MEDS: MELATONIN 5 MG TABLETS PO SCH (22:56)
[2021-07-28] MEDS: OLANZapine 10 MG TABLET PO SCH (22:57)
[2021-07-28] MEDS: THIAMINE HCL 100 MG TABLET (FP) PO SCH (22:57)
[2021-07-29] MEDS ORDERED: methaDONE HCL 10 MG TABLET PO SCH (06:00)
[2021-07-29] MEDS ORDERED: methaDONE 80 MG, methaDONE 20 MG PO SCH (06:00)
[2021-07-29] MEDS: SULFAMETHOXAZOLE/TRIMETHOPRIM 800MG/160MG D.S. TABLET PO SCH (06:37)
[2021-07-29] MEDS: diazePAM 5 MG TABLET PO SCH ×2 (06:37→11:25)
[2021-07-29] MEDS: hydrOXYzine PAMOATE 25 MG CAPSULE (FP) PO SCH ×3 (06:37→15:18)
[2021-07-29] MEDS ORDERED: methaDONE HCL 10 MG TABLET PO ONE (11:08)
[2021-07-29] MEDS ORDERED: methaDONE 80 MG, methaDONE 20 MG PO ONE (11:15)
[2021-07-29] MEDS ORDERED: methaDONE HCL 40 MG DISPERSABLE TABLET ONE (11:24)
[2021-07-29] MEDS ORDERED: methaDONE HCL 10 MG TABLET ONE (11:24)
[2021-07-29] MEDS: PRENATAL VITAMINS W/ FOLIC ACID TABLET (FP) PO SCH (11:26)
[2021-07-29] MEDS: NICOTINE 14 MG/24 HOURS TOPICAL PATCH TD SCH (11:26)
[2021-07-29 13:05] VITALS: BP 125/83; PULSE 59; TEMP 98.4
[2021-07-30] MEDS ORDERED: diazePAM 5 MG TABLET PO SCH (06:00)
[2021-07-31] MEDS ORDERED: diazePAM 5 MG TABLET PO SCH (06:00)
[2021-08-01] MEDS ORDERED: diazePAM 5 MG TABLET PO ONE (06:00)
== END 2021-07-29 14:40 | disposition left against medical advice (07) | DRG 770 ==
LOC: YASAS 13:31 → Y6N 14:55
PROVIDERS: ADMIT Allergy & Immunology; ATTEND Surgery
PROC: HZ2ZZZZ Detoxification Services for Substance Abuse Treatment (ICD-10-PCS; principal; 2021-07-27)
DX: F11.23 Opioid dependence with withdrawal (principal); F10.230 Alcohol dependence with withdrawal, uncomplicated; F14.20 Cocaine dependence, uncomplicated; F13.20 Sedative, hypnotic or anxiolytic dependence, uncomplicated; F12.20 Cannabis dependence, uncomplicated; F17.210 Nicotine dependence, cigarettes, uncomplicated; F41.9 Anxiety disorder, unspecified; M54.50 Low back pain, unspecified; G89.29 Other chronic pain; Z56.0 Unemployment, unspecified; Z59.00 Homelessness unspecified
CPT/HCPCS: 36415; 80053; 85027; 86780; C9803-CS; Q0162; U0003; U0005

== ENCOUNTER 2021-07-28 20:51 | Emergency (ER) | payer OTHER ==
[2021-07-28 21:10] VITALS: BMI 32.1
[2021-07-28] MEDS ORDERED: ACETAMINOPHEN 1000 MG/100 ML BAG IVPB ONE (21:30)
[2021-07-28] MEDS ORDERED: SODIUM CHLORIDE 0.9% 500 ML INFUS.BAG IV ONE (21:30)
[2021-07-28] MEDS ORDERED: ONDANSETRON 4 MG/2 ML VIAL IVPUSH ONE (21:30)
[2021-07-28] MEDS ORDERED: FAMOTIDINE 20 MG/50 ML IVPB 20 MG/50 ML MG IVPB ONE ×3 (21:30→21:46)
[2021-07-28] MEDS ORDERED: ONDANSETRON 4 MG/2 ML VIAL ONE ×2 (21:44→21:45)
[2021-07-28] MEDS ORDERED: ACETAMINOPHEN INJECTION 100 ML IVPB ONE (21:44)
[2021-07-28 22:03] LABS: HEMATOCRIT 45.1 % (35.4-49); HEMOGLOBIN 15.5 GM/dL (11.7-16.9); MCH 30.3 pg (25.7-33.7); MCHC 34.3 g/dl (32.0-35.9); MEAN CELL VOLUME 88.4 fl (80-96); MEAN PLT VOLUME 7.1 fl (7.5-11.1); PLATELET COUNT 423 10^3/uL (134-434); RBC 5.11 M/mm3 (4.00-5.60); RDW 13.8 % (11.9-15.9); WHITE BLOOD COUNT 9.1 K/mm3 (4.0-10.0)
[2021-07-28 22:27] LABS: ALBUMIN 3.9 g/dl (3.4-5.0); BLOOD UREA NITROGEN 7.8 mg/dL (7-18); CALCIUM 9.6 mg/dL (8.5-10.1)
[2021-07-28 22:29] LABS: CREATININE 0.8 mg/dL (0.55-1.3)
[2021-07-28 22:32] LABS: BILIRUBIN,TOTAL 0.2 mg/dL (0.2-1); TOT PROT 8.9 g/dl (6.4-8.2)
[2021-07-29 04:46] LABS: URINE APPEARANCE TURBID; URINE BILIRUBIN NEGATIVE (NEGATIVE); URINE COLOR YELLOW; URINE GLUCOSE (UA) NEGATIVE (NEGATIVE); URINE KETONE NEGATIVE (NEGATIVE); URINE LEUK ESTERASE NEGATIVE (NEGATIVE); URINE NITRITE NEGATIVE (NEGATIVE); URINE PROTEIN NEGATIVE (NEGATIVE)
[2021-07-29 09:15] VITALS: BP 130/81; PULSE 62; TEMP 100.2
== END 2021-07-29 09:23 ==
LOC: JER 20:51
PROC: 3E0333Z Introduction of Anti-inflammatory into Peripheral Vein, Percutaneous Approach (ICD-10-PCS; principal; 2021-07-28)
PROC: 3E033GC Introduction of Other Therapeutic Substance into Peripheral Vein, Percutaneous Approach (ICD-10-PCS; 2021-07-28)
PROC: 3E033GC Introduction of Other Therapeutic Substance into Peripheral Vein, Percutaneous Approach (ICD-10-PCS; 2021-07-28)
DX: R11.10 Vomiting, unspecified (principal); R10.9 Unspecified abdominal pain
CPT/HCPCS: 36415; 74176-TC; 80053; 81003; 83690; 84484; 85025; 87086; 93005; 93010; 99285-25

== ENCOUNTER 2021-09-26 22:47 | Inpatient (IN) | payer OTHER ==
[2021-09-26 23:34] VITALS: BMI 18.6
[2021-09-26] MEDS ORDERED: BENZOCAINE/MENTHOL (CHLORASEPTIC ) LOZENGE MM PRN (23:41)
[2021-09-26] MEDS ORDERED: ACETAMINOPHEN 325 MG TABLET (FP) PO PRN (23:41)
[2021-09-26] MEDS ORDERED: guaiFENesin 200 MG/10 ML 10 ML UNIT-DOSE CUPS PO PRN (23:41)
[2021-09-26] MEDS ORDERED: MAGNESIUM CITRATE 300 ML BOTTLE PO PRN (23:41)
[2021-09-26] MEDS ORDERED: PROCHLORPERAZINE MALEATE 5 MG TABLET PO PRN (23:41)
[2021-09-26] MEDS ORDERED: LOPERAMIDE HCL 2 MG CAPSULE PO PRN (23:41)
[2021-09-26] MEDS ORDERED: BISMUTH SUBSALICYLATE 524 MG/30 ML PO PRN (23:41)
[2021-09-26] MEDS ORDERED: NICOTINE POLACRILEX 2 MG GUM BUC PRN (23:41)
[2021-09-26] MEDS ORDERED: DICYCLOMINE HCL 10 MG CAPSULE PO PRN (23:41)
[2021-09-26] MEDS ORDERED: NALOXONE HCL (KLOXXADO) 8 MG SPRAY NS PRN (23:41)
[2021-09-26] MEDS ORDERED: MAGNESIUM HYDROX 2400MG/30ML ORAL SUSPENSION 30 ML CUP PO PRN (23:41)
[2021-09-26] MEDS ORDERED: IBUPROFEN 600 MG TABLET (FP) PO PRN (23:41)
[2021-09-26] MEDS ORDERED: NALOXONE HCL 0.4 MG/ML VIAL IM PRN (23:41)
[2021-09-26] MEDS ORDERED: MAG HYDROX/AL HYDROX/SIMETH 30 ML UNIT-DOSE CUP PO PRN (23:41)
[2021-09-26] MEDS ORDERED: P-EPHED 60MG/TRIPROLIDI 2.5MG TABLET PO PRN (23:41)
[2021-09-27] MEDS: IBUPROFEN 400 MG TABLET (FP) PO PRN (03:56)
[2021-09-27] MEDS: METHOCARBAMOL 500 MG TABLET PO PRN ×2 (03:56→22:41)
[2021-09-27] MEDS ORDERED: chlordiazePOXIDE HCL 25 MG CAPSULE PO PRN (09:20)
[2021-09-27] MEDS ORDERED: methaDONE HCL 10 MG TABLET PO SCH (09:30)
[2021-09-27] MEDS: PRENATAL VITAMINS W/ FOLIC ACID TABLET (FP) PO SCH (10:31)
[2021-09-27] MEDS: methaDONE 80 MG, methaDONE 20 MG PO SCH (10:31)
[2021-09-27] MEDS: NICOTINE 21 MG/24 HOURS TOPICAL PATCH TD SCH (10:33)
[2021-09-27] MEDS: chlordiazePOXIDE HCL 25 MG CAPSULE PO SCH ×3 (10:35→22:42)
[2021-09-27 11:13] LABS: HEMATOCRIT 38.3 % (35.4-49); HEMOGLOBIN 12.9 GM/dL (11.7-16.9); MCH 29.3 pg (25.7-33.7); MCHC 33.6 g/dl (32.0-35.9); MEAN CELL VOLUME 87.1 fl (80-96); MEAN PLT VOLUME 7.3 fl (7.5-11.1); PLATELET COUNT 311 10^3/uL (134-434); RDW 14.6 % (11.9-15.9); WHITE BLOOD COUNT 5.2 K/mm3 (4.0-10.0)
[2021-09-27 11:27] LABS: CALCIUM 8.7 mg/dL (8.5-10.1)
[2021-09-27 11:28] LABS: ALBUMIN 3.4 g/dl (3.4-5.0); BLOOD UREA NITROGEN 11.7 mg/dL (7-18)
[2021-09-27 11:31] LABS: CREATININE 0.7 mg/dL (0.55-1.3)
[2021-09-27 11:33] LABS: BILIRUBIN,TOTAL 0.3 mg/dL (0.2-1); TOT PROT 6.8 g/dl (6.4-8.2)
[2021-09-27] MEDS ORDERED: OLANZapine 5 MG TABLET PO SCH (22:00)
[2021-09-27] MEDS ORDERED: MELATONIN 5 MG TABLETS PO SCH (22:00)
[2021-09-27] MEDS ORDERED: THIAMINE HCL 100 MG TABLET (FP) PO SCH (22:00)
[2021-09-27] MEDS: ACETAMINOPHEN 325 MG TABLET (FP) PO PRN (22:41)
[2021-09-28] MEDS: chlordiazePOXIDE HCL 25 MG CAPSULE PO SCH ×3 (05:40→17:43)
[2021-09-28] MEDS: methaDONE 80 MG, methaDONE 20 MG PO SCH (05:41)
[2021-09-28] MEDS: PRENATAL VITAMINS W/ FOLIC ACID TABLET (FP) PO SCH (10:26)
[2021-09-28] MEDS: IBUPROFEN 400 MG TABLET (FP) PO PRN (10:28)
[2021-09-28] MEDS: NICOTINE 21 MG/24 HOURS TOPICAL PATCH TD SCH (10:29)
[2021-09-28] MEDS: METHOCARBAMOL 500 MG TABLET PO PRN (15:19)
[2021-09-28 17:29] VITALS: BP 110/73; PULSE 70; RESP 18; TEMP 97.3
[2021-09-28] MEDS: ACETAMINOPHEN 325 MG TABLET (FP) PO PRN (17:44)
[2021-09-29] MEDS ORDERED: chlordiazePOXIDE HCL 25 MG CAPSULE PO SCH (05:00)
[2021-09-30] MEDS ORDERED: chlordiazePOXIDE HCL 10 MG CAPSULE PO PRN
[2021-09-30] MEDS ORDERED: chlordiazePOXIDE HCL 10 MG CAPSULE PO SCH (05:00)
[2021-10-01] MEDS ORDERED: chlordiazePOXIDE HCL 10 MG CAPSULE PO SCH (05:00)
[2021-10-02] MEDS ORDERED: chlordiazePOXIDE HCL 10 MG CAPSULE PO ONE (05:00)
== END 2021-09-28 19:00 | disposition left against medical advice (07) | DRG 770 ==
LOC: YASAS 22:47 → Y3N 09-27 03:38
PROVIDERS: ADMIT Surgery; ATTEND Surgery
PROC: HZ2ZZZZ Detoxification Services for Substance Abuse Treatment (ICD-10-PCS; principal; 2021-09-27)
DX: F10.20 Alcohol dependence, uncomplicated (principal); F11.20 Opioid dependence, uncomplicated; F13.20 Sedative, hypnotic or anxiolytic dependence, uncomplicated; F14.20 Cocaine dependence, uncomplicated; F12.20 Cannabis dependence, uncomplicated; F17.210 Nicotine dependence, cigarettes, uncomplicated; F19.24 Other psychoactive substance dependence with psychoactive substance-induced mood disorder; M19.90 Unspecified osteoarthritis, unspecified site; M54.59 Other low back pain; G89.29 Other chronic pain; G47.00 Insomnia, unspecified; L90.5 Scar conditions and fibrosis of skin; Z91.14 Patient's other noncompliance with medication regimen; Z88.0 Allergy status to penicillin; Z86.59 Personal history of other mental and behavioral disorders; Z86.19 Personal history of other infectious and parasitic diseases; Z56.0 Unemployment, unspecified; Z59.01 Sheltered homelessness
CPT/HCPCS: 36415; 80053; 82947; 83036; 85027; 86780; C9803-CS; U0003; U0005

== ENCOUNTER 2022-03-27 13:47 | Inpatient (IN) | payer OTHER ==
[2022-03-27 14:25] VITALS: BMI 19.5
[2022-03-27] MEDS ORDERED: NICOTINE 10 MG CARTRIDGE (INHALER) IH PRN (14:55)
[2022-03-27] MEDS ORDERED: MAG HYDROX/AL HYDROX/SIMETH 30 ML UNIT-DOSE CUP PO PRN (14:55)
[2022-03-27] MEDS ORDERED: BENZOCAINE/MENTHOL (CHLORASEPTIC ) LOZENGE MM PRN (14:55)
[2022-03-27] MEDS ORDERED: LOPERAMIDE HCL 2 MG CAPSULE PO PRN (14:55)
[2022-03-27] MEDS ORDERED: DICYCLOMINE HCL 10 MG CAPSULE PO PRN (14:55)
[2022-03-27] MEDS ORDERED: POLYETHYLENE GLYCOL (HEALTHYLAX) 3350 17 GM PACKET PO PRN (14:55)
[2022-03-27] MEDS ORDERED: BISMUTH SUBSALICYLATE 524 MG/30 ML PO PRN (14:55)
[2022-03-27] MEDS ORDERED: IBUPROFEN 400 MG TABLET (FP) PO PRN (14:55)
[2022-03-27] MEDS ORDERED: ONDANSETRON *ODT* 4 MG TABLET SL PRN (14:55)
[2022-03-27] MEDS ORDERED: NALOXONE HCL (KLOXXADO) 8 MG SPRAY NS PRN (14:55)
[2022-03-27] MEDS ORDERED: ACETAMINOPHEN 325 MG TABLET (FP) PO PRN (14:55)
[2022-03-27] MEDS: diazePAM 5 MG TABLET PO SCH ×2 (17:10→22:13)
[2022-03-27] MEDS: NICOTINE 14 MG/24 HOURS TOPICAL PATCH TD SCH (17:11)
[2022-03-27] MEDS: PRENATAL VITAMINS W/ FOLIC ACID TABLET (FP) PO SCH (17:11)
[2022-03-27] MEDS: ACETAMINOPHEN 325 MG TABLET (FP) PO PRN (17:11)
[2022-03-27] MEDS: THIAMINE HCL 100 MG TABLET (FP) PO SCH (22:12)
[2022-03-27] MEDS: MELATONIN 5 MG TABLETS PO SCH (22:12)
[2022-03-28] MEDS: diazePAM 5 MG TABLET PO SCH ×4 (05:18→22:01)
[2022-03-28] MEDS: IBUPROFEN 600 MG TABLET (FP) PO PRN ×2 (05:20→17:15)
[2022-03-28] MEDS: METHOCARBAMOL 500 MG TABLET PO PRN ×2 (05:20→23:51)
[2022-03-28] MEDS ORDERED: methaDONE HCL 10 MG TABLET PO SCH (08:00)
[2022-03-28] MEDS: methaDONE 80 MG, methaDONE 20 MG PO SCH (09:04)
[2022-03-28] MEDS: PRENATAL VITAMINS W/ FOLIC ACID TABLET (FP) PO SCH (10:12)
[2022-03-28] MEDS: ACETAMINOPHEN 325 MG TABLET (FP) PO PRN (10:13)
[2022-03-28] MEDS: NICOTINE 14 MG/24 HOURS TOPICAL PATCH TD SCH (10:15)
[2022-03-28 11:58] LABS: HEMATOCRIT 41.2 % (35.4-49); HEMOGLOBIN 13.5 GM/dL (11.7-16.9); MCH 29.6 pg (25.7-33.7); MCHC 32.7 g/dl (32.0-35.9); MEAN CELL VOLUME 90.3 fl (80-96); MEAN PLT VOLUME 8.5 fl (7.5-11.1); PLATELET COUNT 300 10^3/uL (134-434); RBC 4.56 M/mm3 (4.00-5.60); RDW 15.6 % (11.9-15.9); WHITE BLOOD COUNT 5.9 K/mm3 (4.0-10.0)
[2022-03-28 13:50] LABS: ALBUMIN 3.3 g/dl (3.4-5.0); BLOOD UREA NITROGEN 7.6 mg/dL (7-18); CALCIUM 8.9 mg/dL (8.5-10.1)
[2022-03-28 13:54] LABS: BILIRUBIN,TOTAL 0.2 mg/dL (0.2-1); TOT PROT 6.8 g/dl (6.4-8.2)
[2022-03-28 13:55] LABS: CREATININE 0.8 mg/dL (0.55-1.3)
[2022-03-28] MEDS: hydrOXYzine PAMOATE 25 MG CAPSULE (FP) PO PRN (17:14)
[2022-03-28] MEDS: MAGNESIUM HYDROX 2400MG/30ML ORAL SUSPENSION 30 ML CUP PO PRN (18:44)
[2022-03-28] MEDS: THIAMINE HCL 100 MG TABLET (FP) PO SCH (22:02)
[2022-03-28] MEDS: MELATONIN 5 MG TABLETS PO SCH ×2 (22:38→23:53)
[2022-03-28] MEDS: diazePAM 5 MG TABLET PO PRN (23:51)
[2022-03-29] MEDS: methaDONE 80 MG, methaDONE 20 MG PO SCH (05:23)
[2022-03-29] MEDS ORDERED: diazePAM 5 MG TABLET PO SCH (06:00)
[2022-03-29] MEDS: MAGNESIUM HYDROX 2400MG/30ML ORAL SUSPENSION 30 ML CUP PO PRN (07:05)
[2022-03-29 08:48] VITALS: BP 111/77; PULSE 85; RESP 17; TEMP 98
[2022-03-29] MEDS: diazePAM 5 MG TABLET PO PRN (09:56)
[2022-03-29] MEDS: hydrOXYzine PAMOATE 25 MG CAPSULE (FP) PO PRN (09:56)
[2022-03-29] MEDS: PRENATAL VITAMINS W/ FOLIC ACID TABLET (FP) PO SCH (09:57)
[2022-03-29] MEDS: NICOTINE 14 MG/24 HOURS TOPICAL PATCH TD SCH (09:57)
[2022-03-30] MEDS ORDERED: diazePAM 5 MG TABLET PO SCH (06:00)
[2022-03-31] MEDS ORDERED: diazePAM 5 MG TABLET PO ONE (06:00)
== END 2022-03-29 12:27 | disposition left against medical advice (07) | DRG 770 ==
LOC: YASAS 13:47 → Y3N 15:02
PROVIDERS: ADMIT Allergy & Immunology; ATTEND Family Medicine
PROC: HZ2ZZZZ Detoxification Services for Substance Abuse Treatment (ICD-10-PCS; principal; 2022-03-27)
DX: F11.23 Opioid dependence with withdrawal (principal); F10.230 Alcohol dependence with withdrawal, uncomplicated; F14.20 Cocaine dependence, uncomplicated; F13.20 Sedative, hypnotic or anxiolytic dependence, uncomplicated; F12.20 Cannabis dependence, uncomplicated; F17.210 Nicotine dependence, cigarettes, uncomplicated; F31.9 Bipolar disorder, unspecified; F41.9 Anxiety disorder, unspecified; F19.24 Other psychoactive substance dependence with psychoactive substance-induced mood disorder; M54.50 Low back pain, unspecified; G89.29 Other chronic pain; Z91.14 Patient's other noncompliance with medication regimen
CPT/HCPCS: 36415; 80053; 85027; 86780; C9803-CS; U0003; U0005

== ENCOUNTER 2022-12-25 13:25 | Inpatient (IN) | payer OTHER ==
[2022-12-25 13:56] VITALS: BMI 18.6
[2022-12-25] MEDS ORDERED: MAGNESIUM HYDROX 2400MG/30ML ORAL SUSPENSION 30 ML CUP PO PRN (14:47)
[2022-12-25] MEDS ORDERED: NALOXONE HCL 0.4 MG/ML VIAL IM PRN (14:47)
[2022-12-25] MEDS ORDERED: IBUPROFEN 600 MG TABLET (FP) PO PRN (14:47)
[2022-12-25] MEDS ORDERED: ONDANSETRON *ODT* 4 MG TABLET SL PRN (14:47)
[2022-12-25] MEDS ORDERED: BENZONATATE 200 MG CAPSULE PO PRN (14:47)
[2022-12-25] MEDS ORDERED: BISMUTH SUBSALICYLATE 524 MG/30 ML PO PRN (14:47)
[2022-12-25] MEDS ORDERED: guaiFENesin 600 MG TABLET.ER (FP) PO PRN (14:47)
[2022-12-25] MEDS ORDERED: BENZOCAINE/MENTHOL (CHLORASEPTIC ) LOZENGE MM PRN (14:47)
[2022-12-25] MEDS ORDERED: LOPERAMIDE HCL 2 MG CAPSULE PO PRN (14:47)
[2022-12-25] MEDS ORDERED: NALOXONE HCL (KLOXXADO) 8 MG SPRAY NS PRN (14:47)
[2022-12-25] MEDS ORDERED: POLYETHYLENE GLYCOL (HEALTHYLAX) 3350 17 GM PACKET PO PRN (14:47)
[2022-12-25] MEDS ORDERED: IBUPROFEN 400 MG TABLET (FP) PO PRN (14:47)
[2022-12-25] MEDS: ACETAMINOPHEN 325 MG TABLET (FP) PO PRN (18:22)
[2022-12-25] MEDS ORDERED: MELATONIN 5 MG TABLETS PO SCH (22:00)
[2022-12-25] MEDS: THIAMINE HCL 100 MG TABLET (FP) PO SCH (22:02)
[2022-12-25] MEDS: hydrOXYzine PAMOATE 25 MG CAPSULE (FP) PO PRN (22:03)
[2022-12-25] MEDS: MAG HYDROX/AL HYDROX/SIMETH 30 ML UNIT-DOSE CUP PO PRN (22:03)
[2022-12-26] MEDS ORDERED: methaDONE HCL 10 MG TABLET PO ONE (09:49)
[2022-12-26] MEDS ORDERED: diazePAM 5 MG TABLET PO PRN (09:51)
[2022-12-26] MEDS ORDERED: methaDONE 80 MG, methaDONE 20 MG PO ONE (09:55)
[2022-12-26] MEDS: hydrOXYzine PAMOATE 25 MG CAPSULE (FP) PO PRN (10:00)
[2022-12-26] MEDS: PRENATAL VITAMINS W/ FOLIC ACID TABLET (FP) PO SCH (10:00)
[2022-12-26] MEDS: NICOTINE 21 MG/24 HOURS TOPICAL PATCH TD SCH (10:00)
[2022-12-26] MEDS: diazePAM 5 MG TABLET PO SCH ×3 (10:37→22:12)
[2022-12-26] MEDS: NICOTINE POLACRILEX 2 MG GUM BUC PRN ×3 (10:58→21:26)
[2022-12-26] MEDS: ACETAMINOPHEN 325 MG TABLET (FP) PO PRN ×2 (11:10→17:01)
[2022-12-26 11:12] LABS: CHLORIDE 100 mmol/L (98-107); POTASSIUM 4.5 mmol/L (3.5-5.1); SODIUM 136 mmol/L (136-145)
[2022-12-26 11:23] LABS: HEMATOCRIT 47.9 % (35.4-49); MCH 29.5 pg (25.7-33.7); MCHC 33.4 g/dl (32.0-35.9); MEAN CELL VOLUME 88.1 fl (80-96); MEAN PLT VOLUME 7.6 fl (7.5-11.1); PLATELET COUNT 336 10^3/uL (134-434); RBC 5.44 M/mm3 (4.00-5.60); RDW 16.5 % (11.9-15.9); WHITE BLOOD COUNT 5.9 K/mm3 (4.0-10.0)
[2022-12-26 11:29] LABS: CALCIUM 9.7 mg/dL (8.5-10.1)
[2022-12-26 11:30] LABS: ANION GAP 7 mmol/L (4-13); CO2 29 mmol/L (21-32); GLUCOSE,RANDOM 121 mg/dL (74-106)
[2022-12-26 11:32] LABS: CREATININE 0.9 mg/dL (0.55-1.3); SGOT/AST 17 U/L (15-37); SGPT/ALT 19 U/L (13-61)
[2022-12-26 11:33] LABS: BILIRUBIN,TOTAL 0.5 mg/dL (0.2-1); TOT PROT 8.4 g/dl (6.4-8.2)
[2022-12-26 11:35] LABS: ALK PHOS 120 U/L (45-117)
[2022-12-26] MEDS: THIAMINE HCL 100 MG TABLET (FP) PO SCH (22:12)
[2022-12-26] MEDS: SUVOREXANT 10 MG TABLET PO PRN (22:13)
[2022-12-27] MEDS: methaDONE 80 MG, methaDONE 20 MG PO SCH (05:29)
[2022-12-27] MEDS: diazePAM 5 MG TABLET PO SCH ×4 (05:33→22:34)
[2022-12-27] MEDS ORDERED: methaDONE HCL 10 MG TABLET PO SCH (06:00)
[2022-12-27] MEDS: hydrOXYzine PAMOATE 25 MG CAPSULE (FP) PO PRN (10:08)
[2022-12-27] MEDS: PRENATAL VITAMINS W/ FOLIC ACID TABLET (FP) PO SCH (10:08)
[2022-12-27] MEDS: NICOTINE 21 MG/24 HOURS TOPICAL PATCH TD SCH (10:09)
[2022-12-27] MEDS: ACETAMINOPHEN 325 MG TABLET (FP) PO PRN (12:10)
[2022-12-27] MEDS: NICOTINE POLACRILEX 2 MG GUM BUC PRN ×2 (18:01→22:34)
[2022-12-27] MEDS: THIAMINE HCL 100 MG TABLET (FP) PO SCH (22:34)
[2022-12-27] MEDS: SUVOREXANT 10 MG TABLET PO PRN (22:34)
[2022-12-28] MEDS: methaDONE 80 MG, methaDONE 20 MG PO SCH (05:23)
[2022-12-28 05:58] VITALS: RESP 16
[2022-12-28] MEDS ORDERED: diazePAM 5 MG TABLET PO SCH (06:00)
[2022-12-28] MEDS: ACETAMINOPHEN 325 MG TABLET (FP) PO PRN (06:04)
[2022-12-28] MEDS: hydrOXYzine PAMOATE 25 MG CAPSULE (FP) PO PRN (06:11)
[2022-12-28] MEDS: MAG HYDROX/AL HYDROX/SIMETH 30 ML UNIT-DOSE CUP PO PRN (06:12)
[2022-12-28] MEDS: NICOTINE POLACRILEX 2 MG GUM BUC PRN ×2 (06:13→09:44)
[2022-12-28 09:34] VITALS: BP 123/85; PULSE 79; TEMP 97.5
[2022-12-28] MEDS: PRENATAL VITAMINS W/ FOLIC ACID TABLET (FP) PO SCH (09:41)
[2022-12-28] MEDS: NICOTINE 21 MG/24 HOURS TOPICAL PATCH TD SCH (09:41)
[2022-12-29] MEDS ORDERED: diazePAM 5 MG TABLET PO SCH (06:00)
[2022-12-30] MEDS ORDERED: diazePAM 5 MG TABLET PO ONE (06:00)
== END 2022-12-28 10:58 | disposition left against medical advice (07) | DRG 770 ==
LOC: YASAS 13:25 → Y6N 17:12
PROVIDERS: ADMIT Allergy & Immunology; ATTEND Surgery
PROC: HZ2ZZZZ Detoxification Services for Substance Abuse Treatment (ICD-10-PCS; principal; 2022-12-25)
DX: F10.230 Alcohol dependence with withdrawal, uncomplicated (principal); F14.20 Cocaine dependence, uncomplicated; F11.20 Opioid dependence, uncomplicated; F17.210 Nicotine dependence, cigarettes, uncomplicated; F19.280 Other psychoactive substance dependence with psychoactive substance-induced anxiety disorder; F19.282 Other psychoactive substance dependence with psychoactive substance-induced sleep disorder; F31.9 Bipolar disorder, unspecified; F43.10 Post-traumatic stress disorder, unspecified; I10 Essential (primary) hypertension; M54.50 Low back pain, unspecified; G89.29 Other chronic pain; Z86.19 Personal history of other infectious and parasitic diseases; Z87.19 Personal history of other diseases of the digestive system; Z62.810 Personal history of physical and sexual abuse in childhood; Z91.410 Personal history of adult physical and sexual abuse
CPT/HCPCS: 36415; 80053; 80307; 85027; 86780; 87635

== ENCOUNTER 2023-02-21 14:27 | Inpatient (IN) | payer OTHER ==
[2023-02-21 14:45] VITALS: BMI 19.5
[2023-02-21] MEDS ORDERED: POLYETHYLENE GLYCOL (HEALTHYLAX) 3350 17 GM PACKET PO PRN (15:21)
[2023-02-21] MEDS ORDERED: BISMUTH SUBSALICYLATE 262 MG/15 ML BTL PO PRN (15:21)
[2023-02-21] MEDS ORDERED: NALOXONE HCL (KLOXXADO) 8 MG SPRAY NS PRN (15:21)
[2023-02-21] MEDS ORDERED: MAGNESIUM HYDROX 2400MG/30ML ORAL SUSPENSION 30 ML CUP PO PRN (15:21)
[2023-02-21] MEDS ORDERED: ONDANSETRON *ODT* 4 MG TABLET SL PRN (15:21)
[2023-02-21] MEDS ORDERED: NALOXONE HCL 0.4 MG/ML VIAL IM PRN (15:21)
[2023-02-21] MEDS ORDERED: IBUPROFEN 400 MG TABLET (FP) PO PRN (15:21)
[2023-02-21] MEDS ORDERED: BENZONATATE 200 MG CAPSULE PO PRN (15:21)
[2023-02-21] MEDS ORDERED: guaiFENesin 600 MG TABLET.ER (FP) PO PRN (15:21)
[2023-02-21] MEDS ORDERED: MAG HYDROX/AL HYDROX/SIMETH 30 ML UNIT-DOSE CUP PO PRN (15:21)
[2023-02-21] MEDS ORDERED: LOPERAMIDE HCL 2 MG CAPSULE PO PRN (15:21)
[2023-02-21] MEDS ORDERED: DICYCLOMINE HCL 10 MG CAPSULE PO PRN (15:21)
[2023-02-21] MEDS ORDERED: BENZOCAINE/MENTHOL (CHLORASEPTIC ) LOZENGE MM PRN (15:21)
[2023-02-21] MEDS ORDERED: IBUPROFEN 600 MG TABLET (FP) PO PRN (15:21)
[2023-02-21] MEDS ORDERED: diazePAM 5 MG TABLET ONE (16:51)
[2023-02-21] MEDS: diazePAM 5 MG TABLET PO SCH ×2 (16:53→22:10)
[2023-02-21] MEDS ORDERED: IBUPROFEN 400 MG TABLET (FP) PO ONE (16:54)
[2023-02-21] MEDS: hydrOXYzine PAMOATE 25 MG CAPSULE (FP) PO PRN (18:07)
[2023-02-21] MEDS: PRENATAL VITAMINS W/ FOLIC ACID TABLET (FP) PO SCH (19:01)
[2023-02-21] MEDS ORDERED: MELATONIN 5 MG TABLETS PO SCH (22:00)
[2023-02-21] MEDS: THIAMINE HCL 100 MG TABLET (FP) PO SCH (22:10)
[2023-02-22] MEDS: diazePAM 5 MG TABLET PO SCH ×4 (05:34→22:31)
[2023-02-22] MEDS: METHOCARBAMOL 500 MG TABLET PO PRN (05:36)
[2023-02-22] MEDS ORDERED: methaDONE HCL 10 MG TABLET PO SCH (08:45)
[2023-02-22] MEDS: methaDONE 80 MG, methaDONE 20 MG PO SCH (08:54)
[2023-02-22] MEDS: PRENATAL VITAMINS W/ FOLIC ACID TABLET (FP) PO SCH (10:03)
[2023-02-22] MEDS: ACETAMINOPHEN 325 MG TABLET (FP) PO PRN (10:05)
[2023-02-22 10:39] LABS: HEMATOCRIT 41.2 % (35.4-49); HEMOGLOBIN 13.6 GM/dL (11.7-16.9); MCH 29.5 pg (25.7-33.7); MCHC 33.1 g/dl (32.0-35.9); MEAN CELL VOLUME 89.3 fl (80-96); MEAN PLT VOLUME 8.3 fl (7.5-11.1); PLATELET COUNT 247 10^3/uL (134-434); RBC 4.62 M/mm3 (4.00-5.60); RDW 15.9 % (11.9-15.9)
[2023-02-22 11:35] LABS: CHLORIDE 105 mmol/L (98-107); POTASSIUM 4.2 mmol/L (3.5-5.1); SODIUM 140 mmol/L (136-145)
[2023-02-22 11:42] LABS: ALBUMIN 3.5 g/dl (3.4-5.0); CALCIUM 8.9 mg/dL (8.5-10.1)
[2023-02-22] MEDS: BACITRACIN 0.9 GM PACKET TP SCH ×2 (11:42→22:31)
[2023-02-22 11:44] LABS: ANION GAP 6 mmol/L (4-13); BLOOD UREA NITROGEN 7.5 mg/dL (7-18); CO2 29 mmol/L (21-32); GLUCOSE,RANDOM 93 mg/dL (74-106)
[2023-02-22 11:45] LABS: CREATININE 0.7 mg/dL (0.55-1.3); SGOT/AST 19 U/L (15-37); SGPT/ALT 22 U/L (13-61)
[2023-02-22 11:46] LABS: TOT PROT 6.6 g/dl (6.4-8.2)
[2023-02-22 11:47] LABS: BILIRUBIN,TOTAL 0.3 mg/dL (0.2-1)
[2023-02-22 11:48] LABS: ALK PHOS 87 U/L (45-117)
[2023-02-22] MEDS: diazePAM 5 MG TABLET PO PRN (15:38)
[2023-02-22] MEDS: NICOTINE POLACRILEX 4 MG GUM BUC PRN (18:46)
[2023-02-22] MEDS: THIAMINE HCL 100 MG TABLET (FP) PO SCH (22:30)
[2023-02-22] MEDS: SUVOREXANT 10 MG TABLET PO PRN (22:33)
[2023-02-23] MEDS: diazePAM 5 MG TABLET PO SCH ×3 (05:17→22:50)
[2023-02-23] MEDS: methaDONE 80 MG, methaDONE 20 MG PO SCH (05:17)
[2023-02-23] MEDS: BACITRACIN 0.9 GM PACKET TP SCH ×2 (10:11→22:50)
[2023-02-23] MEDS: diazePAM 5 MG TABLET PO PRN ×2 (10:12→17:24)
[2023-02-23] MEDS: ACETAMINOPHEN 325 MG TABLET (FP) PO PRN (10:12)
[2023-02-23] MEDS: PRENATAL VITAMINS W/ FOLIC ACID TABLET (FP) PO SCH (10:12)
[2023-02-23] MEDS: METHOCARBAMOL 500 MG TABLET PO PRN ×2 (10:12→17:24)
[2023-02-23] MEDS: NICOTINE POLACRILEX 4 MG GUM BUC PRN ×2 (10:33→13:24)
[2023-02-23] MEDS: hydrOXYzine PAMOATE 25 MG CAPSULE (FP) PO PRN (13:22)
[2023-02-23 17:33] VITALS: RESP 16
[2023-02-23] MEDS: THIAMINE HCL 100 MG TABLET (FP) PO SCH (22:50)
[2023-02-23] MEDS: SUVOREXANT 10 MG TABLET PO PRN (22:51)
[2023-02-24] MEDS: METHOCARBAMOL 500 MG TABLET PO PRN ×2 (01:03→09:13)
[2023-02-24] MEDS: hydrOXYzine PAMOATE 25 MG CAPSULE (FP) PO PRN (01:03)
[2023-02-24] MEDS: methaDONE 80 MG, methaDONE 20 MG PO SCH (05:22)
[2023-02-24] MEDS: ACETAMINOPHEN 325 MG TABLET (FP) PO PRN (05:24)
[2023-02-24] MEDS ORDERED: diazePAM 5 MG TABLET PO SCH (06:00)
[2023-02-24] MEDS: BACITRACIN 0.9 GM PACKET TP SCH (09:13)
[2023-02-24] MEDS: NICOTINE POLACRILEX 4 MG GUM BUC PRN (09:13)
[2023-02-24] MEDS: diazePAM 5 MG TABLET PO PRN (09:13)
[2023-02-24] MEDS: PRENATAL VITAMINS W/ FOLIC ACID TABLET (FP) PO SCH (09:14)
[2023-02-24 10:02] VITALS: BP 113/67; PULSE 69; TEMP 97.7
[2023-02-25] MEDS ORDERED: diazePAM 5 MG TABLET PO ONE (06:00)
== END 2023-02-24 10:20 | disposition left against medical advice (07) | DRG 770 ==
LOC: YASAS 14:27 → Y6N 16:47
PROVIDERS: ADMIT Allergy & Immunology; ATTEND Surgery
PROC: HZ2ZZZZ Detoxification Services for Substance Abuse Treatment (ICD-10-PCS; principal; 2023-02-21)
DX: F10.230 Alcohol dependence with withdrawal, uncomplicated (principal); F13.230 Sedative, hypnotic or anxiolytic dependence with withdrawal, uncomplicated; F14.20 Cocaine dependence, uncomplicated; F11.20 Opioid dependence, uncomplicated; F17.210 Nicotine dependence, cigarettes, uncomplicated; F19.282 Other psychoactive substance dependence with psychoactive substance-induced sleep disorder; F19.280 Other psychoactive substance dependence with psychoactive substance-induced anxiety disorder; F31.9 Bipolar disorder, unspecified; F43.10 Post-traumatic stress disorder, unspecified; I10 Essential (primary) hypertension; M54.50 Low back pain, unspecified; G89.29 Other chronic pain; Z86.19 Personal history of other infectious and parasitic diseases; Z62.810 Personal history of physical and sexual abuse in childhood; Z63.8 Other specified problems related to primary support group; Z91.410 Personal history of adult physical and sexual abuse; Z88.0 Allergy status to penicillin
CPT/HCPCS: 36415; 80053; 80307; 83036; 85027; 86780; 87635; 93005; 93010

== ENCOUNTER 2023-12-12 15:19 | Inpatient (IN) | payer OTHER ==
[2023-12-12 15:53] VITALS: BMI 22.6
[2023-12-12] MEDS ORDERED: DICYCLOMINE HCL 10 MG CAPSULE PO PRN (19:49)
[2023-12-12] MEDS ORDERED: MAGNESIUM HYDROX 2400MG/30ML ORAL SUSPENSION 30 ML CUP PO PRN (19:49)
[2023-12-12] MEDS ORDERED: BENZONATATE 200 MG CAPSULE PO PRN (19:49)
[2023-12-12] MEDS ORDERED: BISMUTH SUBSALICYLATE 524 MG/30 ML PO PRN (19:49)
[2023-12-12] MEDS ORDERED: hydrOXYzine PAMOATE 25 MG CAPSULE (FP) PO PRN (19:49)
[2023-12-12] MEDS ORDERED: P-EPHED 60MG/TRIPROLIDI 2.5MG TABLET PO PRN (19:49)
[2023-12-12] MEDS ORDERED: POLYETHYLENE GLYCOL (HEALTHYLAX) 3350 17 GM PACKET PO PRN (19:49)
[2023-12-12] MEDS ORDERED: guaiFENesin 600 MG TABLET.ER (FP) PO PRN (19:49)
[2023-12-12] MEDS ORDERED: BENZOCAINE/MENTHOL (CHLORASEPTIC ) LOZENGE MM PRN (19:49)
[2023-12-12] MEDS ORDERED: IBUPROFEN 400 MG TABLET (FP) PO PRN (19:49)
[2023-12-12] MEDS ORDERED: NICOTINE POLACRILEX 4 MG GUM BUC PRN (19:49)
[2023-12-12] MEDS ORDERED: LOPERAMIDE HCL 2 MG CAPSULE PO PRN (19:49)
[2023-12-12] MEDS ORDERED: ONDANSETRON *ODT* 4 MG TABLET SL PRN (19:49)
[2023-12-12] MEDS ORDERED: NALOXONE (NARCAN) HCL 4 MG/0.1 ML SPRAY NS PRN (19:49)
[2023-12-13] MEDS: THIAMINE 100 MG TABLET PO SCH (01:00)
[2023-12-13] MEDS: MELATONIN 5 MG TABLETS PO SCH (01:00)
[2023-12-13] MEDS: PRENATAL VITAMINS W/ FOLIC ACID TABLET (FP) PO SCH (09:39)
[2023-12-13] MEDS: NICOTINE 21 MG/24 HOURS TOPICAL PATCH TD SCH (09:39)
[2023-12-13] MEDS ORDERED: methaDONE HCL 40 MG DISPERSABLE TABLET PO SCH (11:00)
[2023-12-13] MEDS: methaDONE 80 MG, methaDONE 20 MG PO SCH (11:31)
[2023-12-13] MEDS ORDERED: diazePAM 5 MG TABLET ONE (11:33)
[2023-12-13] MEDS: diazePAM 5 MG TABLET PO SCH (11:34)
[2023-12-13] MEDS ORDERED: ACETAMINOPHEN 325 MG TABLET (FP) ONE (11:48)
[2023-12-13] MEDS: ACETAMINOPHEN 325 MG TABLET (FP) PO PRN (11:49)
[2023-12-13] MEDS: IBUPROFEN 600 MG TABLET (FP) PO PRN (17:09)
[2023-12-13 17:42] LABS: HEMATOCRIT 42.6 % (35.4-49); HEMOGLOBIN 14.4 GM/dL (11.7-16.9); MCH 29.9 pg (25.7-33.7); MCHC 33.7 g/dl (32.0-35.9); MEAN CELL VOLUME 88.6 fl (80-96); MEAN PLT VOLUME 9.1 fl (7.5-11.1); PLATELET COUNT 268 10^3/uL (134-434); RBC 4.81 M/mm3 (4.00-5.60); RDW 15.7 % (11.9-15.9); WHITE BLOOD COUNT 5.2 K/mm3 (4.0-10.0)
[2023-12-13 17:45] LABS: CHLORIDE 106 mmol/L (98-107); POTASSIUM 4.1 mmol/L (3.5-5.1); SODIUM 141 mmol/L (136-145)
[2023-12-13 17:53] LABS: ALK PHOS 87 U/L (45-117)
[2023-12-13 17:55] LABS: ALBUMIN 3.7 g/dl (3.4-5.0)
[2023-12-13 17:56] LABS: ANION GAP 6 mmol/L (4-13); BLOOD UREA NITROGEN 7.8 mg/dL (7-18); CALCIUM 9.3 mg/dL (8.5-10.1); CO2 30 mmol/L (21-32)
[2023-12-13 17:57] LABS: GLUCOSE,RANDOM 114 mg/dL (74-106)
[2023-12-13 17:58] LABS: SGOT/AST 17 U/L (15-37)
[2023-12-13 17:59] LABS: CREATININE 0.8 mg/dL (0.55-1.3)
[2023-12-13 18:00] LABS: BILIRUBIN,TOTAL 0.2 mg/dL (0.2-1); TOT PROT 7.1 g/dl (6.4-8.2)
[2023-12-13 18:01] LABS: SGPT/ALT 15 U/L (13-61)
[2023-12-14] MEDS: GABAPENTIN 100 MG CAPSULE PO SCH (13:05)
[2023-12-14] MEDS: diazePAM 5 MG TABLET PO PRN (13:06)
[2023-12-14] MEDS: DIVALPROEX SODIUM 500 MG TABLET E.C. PO SCH (13:06)
[2023-12-14] MEDS: MAG HYDROX/AL HYDROX/SIMETH 30 ML UNIT-DOSE CUP PO PRN (13:55)
[2023-12-14] MEDS: OLANZapine 5 MG TABLET PO SCH (22:14)
[2023-12-15] MEDS: diazePAM 5 MG TABLET PO SCH (06:06)
[2023-12-16] MEDS: diazePAM 5 MG TABLET PO SCH (05:54)
[2023-12-16 08:58] VITALS: RESP 16
[2023-12-16] MEDS: NALOXONE (NYS OPIOID OVERDOSE PROGRAM) 4 MG/0.1 ML SPRAY NS PRN (11:15)
[2023-12-16 12:39] VITALS: BP 135/76; PULSE 89; TEMP 98
[2023-12-17] MEDS ORDERED: diazePAM 5 MG TABLET PO ONE (06:00)
== END 2023-12-16 11:28 | disposition home or self-care (01) | DRG 773 ==
LOC: YASAS 15:19 → Y6N 12-13 12:31
PROVIDERS: ADMIT Allergy & Immunology; ATTEND Surgery
PROC: HZ2ZZZZ Detoxification Services for Substance Abuse Treatment (ICD-10-PCS; principal; 2023-12-13)
DX: F10.230 Alcohol dependence with withdrawal, uncomplicated (principal); F13.20 Sedative, hypnotic or anxiolytic dependence, uncomplicated; F11.20 Opioid dependence, uncomplicated; F14.20 Cocaine dependence, uncomplicated; F17.210 Nicotine dependence, cigarettes, uncomplicated; F25.0 Schizoaffective disorder, bipolar type; F19.282 Other psychoactive substance dependence with psychoactive substance-induced sleep disorder; I10 Essential (primary) hypertension; B18.2 Chronic viral hepatitis C; M54.50 Low back pain, unspecified; G89.29 Other chronic pain; Z88.8 Allergy status to other drugs, medicaments and biological substances
CPT/HCPCS: 36415; 80053; 80164; 80305; 80307; 85027; 86780